=== PATIENT | male | born 1980 | race Caucasian/White ===

== ENCOUNTER 2022-12-05 16:55 | Emergency (ER) | payer OTHER, SELFPAY ==
[2022-12-05 16:57] VITALS: BP 102/75; PULSE 101; RESP 16; TEMP 37.2; O2SAT 97; BMI 61.7
--- NOTE | 2022-12-05 16:59 | XR_ITS ---
The [address] [address] Patient Name: SALVADOR ANTOINE MRN: [id number] date: 1980 Sex: M Assigned Patient Location: ER Current Patient Location: ER Accession/Order Number: [id number] Exam Date: 12/05/2022 17:21 Report Date: 12/05/2022 17:49 At the request of: HAIR METZ Procedure: XR shoulder LT min 2V EXAM: XR shoulder LT min 2V HISTORY: Left shoulder pain COMPARISON: None. TECHNIQUE: 3 views FINDINGS: No osseous lesion, fracture, dislocation or subluxation. Joint spaces are unremarkable for patient's age. No visualized effusion. No visualized soft tissue edema. XR/XR shoulder LT min 2V IMPRESSION: No visualized abnormality Electronically authenticated by: LIZET ALVAREZ Date: 12/05/2022 17:49
--- NOTE | 2022-12-05 17:03 | XR_ITS ---
The [address] [address] Patient Name: SALVADOR ANTOINE MRN: [id number] date: 1980 Sex: M Assigned Patient Location: ER Current Patient Location: ER Accession/Order Number: [id number] Exam Date: 12/05/2022 17:21 Report Date: 12/05/2022 17:46 At the request of: HAIR METZ Procedure: XR cervical spine 2-3V EXAM: XR cervical spine 2-3V HISTORY: neck pain COMPARISON: None. TECHNIQUE: 4 views FINDINGS: IMPRESSION: Age-indeterminate straightening of the normal cervical lordosis. Vertebral body heights and alignments exhibit no fracture or listhesis. Intervertebral disc space narrowing, endplate, uncovertebral and facet changes. No visualized prevertebral soft tissue edema. The dens and lateral masses of C1 are symmetric. Electronically authenticated by: LIZET ALVAREZ Date: 12/05/2022 17:46
--- NOTE | 2022-12-05 17:49 | ED_ITS ---
Documented by User: NISHI Charles 12/05/22 17:56 HPI - Extremity Injury (Upper) General Chief Complaint: Extremity Injury, Upper Stated Complaint: POSSIBLE L SHOULDER INJURY Time Seen by Provider: 12/05/22 16:59 Source: patient Mode of arrival: Wheelchair Limitations: no limitations History of Present Illness HPI narrative: patient is a 42-year-old male who presents to the emergency department for the evaluation of pain in the left side of the neck and left superior shoulder for the last day. He denies any specific mechanism of injury or trauma but states his pain began after he was reaching behind himself to wipe his bottom in the bathroom. He denies any numbness or tingling of the left arm. No pain radiation to the left arm. He has a history of chronic back pain. He takes Tylenol typically for pain at home. Related Data Previous Rx's Medication Instructions Recorded ketorolac 10 mg tablet 10 mg PO TID PRN pain #10 tabs 12/05/22 methocarbamol 750 mg tablet 750 mg PO TID PRN pain #20 tabs 12/05/22 methylprednisolone 4 mg tablets in See Rx Instructions .Route 12/05/22 a dose pack (Medrol (Eric)) .COMPLEX #21 ea Allergies Allergy/AdvReac Type Severity Reaction Status Date / Time No Known Drug Allergies Allergy Verified 12/05/22 17:01 Review of Systems ROS Constitutional Denies: fever or chills Ears, nose, mouth, and throat Reports: neck pain; Denies: throat pain Cardiovascular Denies: chest pain Respiratory Denies: shortness of breath Gastrointestinal Denies: abdominal pain, nausea or vomiting Genitourinary Denies: painful urination Musculoskeletal Reports: back pain, neck pain and extremity pain Integumentary/Breast Denies: rash Neurological Denies: headache Exam Narrative Exam Narrative: Gen.: Awake, alert, in no distress Head: Normocephalic, atraumatic ENT: Moist mucous membranes Neck: no bony posterior tenderness of the cervical spine with diffuse tenderness of the left paraspinal muscles of the neck and left superior shoulder Respiratory: No respiratory distress, lungs clear bilaterally Cardio: Regular rate and rhythm Gastrointestinal: Abdomen is soft, nondistended and nontender to palpation Extremities: Moves extremities equally, 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, normal biceps tendon strength of flexion and extension of the left arm Psych: Normal mood and affect Neuro: No focal neuro deficit Skin: Warm, dry, intact Constitutional Vital Signs, click to edit/add: Last Vital Signs Temp 98.9 F 12/05/22 16:57 Pulse 101 H 12/05/22 16:57 Resp 16 12/05/22 16:57 BP 102/75 12/05/22 16:57 Pulse Ox 97 12/05/22 16:57 O2 Del Method Room Air 12/05/22 16:57 Course Vital Signs Vital signs: Vital Signs Temperature 98.9 F 12/05/22 16:57 Pulse Rate 101 H 12/05/22 16:57 Respiratory Rate 16 12/05/22 16:57 Blood Pressure 102/75 12/05/22 16:57 Pulse Oximetry 97 12/05/22 16:57 Oxygen Delivery Method Room Air 12/05/22 16:57 Temperature 98.9 F 12/05/22 16:57 Pulse Rate 101 H 12/05/22 16:57 Respiratory Rate 16 12/05/22 16:57 Blood Pressure 102/75 12/05/22 16:57 Pulse Oximetry 97 12/05/22 16:57 Oxygen Delivery Method Room Air 12/05/22 16:57 MDM - Extremity Injury (Upper) MDM Narrative Medical decision making narrative: x-rays of the left shoulder and cervical spine reviewed by the radiologist with no evidence of acute fracture, dislocation or abnormalities. Patient treated for symptoms with Norflex, Toradol, Percocet in the Emergency Room and will be discharged home with Medrol Dosepak, Robaxin, NSAIDs. Rest, ice, gentle stretching. Follow-up with PCP and return to the Emergency Room if symptoms change or worsen. Medical Records Attestation: I reviewed the patient's medical records. Discharge Plan Discharge Chief Complaint: Extremity Injury, Upper Clinical Impression: Left shoulder strain, Cervical strain Patient Disposition: Home, Self-Care Time of Disposition Decision: 17:51 Condition: Good Prescriptions / Home Meds: New ketorolac 10 mg tablet 10 mg PO TID PRN (Reason: pain) Qty: 10 0RF methocarbamol 750 mg tablet 750 mg PO TID PRN (Reason: pain) Qty: 20 0RF methylprednisolone [Medrol (Eric)] 4 mg tablets,dose pack See Rx Instructions .ROUTE .COMPLEX Qty: 21 0RF Rx Instructions: Taper as directed Instructions: Cervical Strain (ED), Muscle Strain (ED), Shoulder Pain (ED) Stand Alone Forms: Portal Instructions Referrals: Physician,Non-Staff, [Primary Care Provider] - 1 week Discharge Date/Time: 12/05/22 18:24 Documented by User: Xochitl Gonzalez MD 12/07/22 08:40 HPI - Extremity Injury (Upper) General Chief Complaint: Extremity Injury, Upper Stated Complaint: POSSIBLE L SHOULDER INJURY Time Seen by Provider: 12/05/22 16:59 Related Data Previous Rx's Medication Instructions Recorded ketorolac 10 mg tablet 10 mg PO TID PRN pain #10 tabs 12/05/22 methocarbamol 750 mg tablet 750 mg PO TID PRN pain #20 tabs 12/05/22 methylprednisolone 4 mg tablets in See Rx Instructions .Route 12/05/22 a dose pack (Medrol (Eric)) .COMPLEX #21 ea Allergies Allergy/AdvReac Type Severity Reaction Status Date / Time No Known Drug Allergies Allergy Verified 12/05/22 17:01 Exam Constitutional Vital Signs, click to edit/add: Last Vital Signs Temp 98.9 F 12/05/22 16:57 Pulse 101 H 12/05/22 16:57 Resp 16 12/05/22 16:57 BP 102/75 12/05/22 16:57 Pulse Ox 97 12/05/22 16:57 O2 Del Method Room Air 12/05/22 16:57 Course Vital Signs Vital signs: Vital Signs Temperature 98.9 F 12/05/22 16:57 Pulse Rate 101 H 12/05/22 16:57 Respiratory Rate 16 12/05/22 16:57 Blood Pressure 102/75 12/05/22 16:57 Pulse Oximetry 97 12/05/22 16:57 Oxygen Delivery Method Room Air 12/05/22 16:57 Temperature 98.9 F 12/05/22 16:57 Pulse Rate 101 H 12/05/22 16:57 Respiratory Rate 16 12/05/22 16:57 Blood Pressure 102/75 12/05/22 16:57 Pulse Oximetry 97 12/05/22 16:57 Oxygen Delivery Method Room Air 12/05/22 16:57 MDM - Extremity Injury (Upper) MDM Narrative Medical decision making narrative: x-rays of the left shoulder and cervical spine reviewed by the radiologist with no evidence of acute fracture, dislocation or abnormalities. Patient treated for symptoms with Norflex, Toradol, Percocet in the Emergency Room and will be discharged home with Medrol Dosepak, Robaxin, NSAIDs. Rest, ice, gentle stretching. Follow-up with PCP and return to the Emergency Room if symptoms change or worsen. Attending physician attestation I have seen and evaluated this patient. I have reviewed the mid-level provider?s documentation medical decision making and treatment plan. I agree with the mid- level provider?s assessment, and plan. Discharge Plan Discharge Chief Complaint: Extremity Injury, Upper Clinical Impression: Left shoulder strain, Cervical strain Patient Disposition: Home, Self-Care Time of Disposition Decision: 17:51 Condition: Good Prescriptions / Home Meds: New ketorolac 10 mg tablet 10 mg PO TID PRN (Reason: pain) Qty: 10 0RF methocarbamol 750 mg tablet 750 mg PO TID PRN (Reason: pain) Qty: 20 0RF methylprednisolone [Medrol (Eric)] 4 mg tablets,dose pack See Rx Instructions .ROUTE .COMPLEX Qty: 21 0RF Rx Instructions: Taper as directed Instructions: Cervical Strain (ED), Muscle Strain (ED), Shoulder Pain (ED) Stand Alone Forms: Portal Instructions Referrals: Physician,Non-Staff, MD [Primary Care Provider] - 1 week Discharge Date/Time: 12/05/22 18:24
[2022-12-05] MEDS: KETOROLAC TROMETHAMINE 60 MG/2 ML VIAL IM (18:08)
[2022-12-05] MEDS: ORPHENADRINE 60 MG/ 2 ML VIAL IM (18:09)
== END 2022-12-05 18:24 | disposition home or self-care (01) ==
PROVIDERS: Emergency Provider Emergency Medicine
DX: S16.1XXA Strain of muscle, fascia and tendon at neck level, initial encounter (principal); S46.912A Strain of unspecified muscle, fascia and tendon at shoulder and upper arm level, left arm, initial encounter; X50.9XXA Other and unspecified overexertion or strenuous movements or postures, initial encounter
CPT/HCPCS: 72040; 73030; 96372; 99284

== ENCOUNTER 2022-12-26 14:48 | Outpatient (OUT) | payer OTHER, SELFPAY ==
--- NOTE | 2022-12-26 14:52 | XR_ITS ---
The [address] [address] Patient Name: SALVADOR ANTOINE MRN: [id number] date: 1980 Sex: M Assigned Patient Location: RAD Current Patient Location: [facility] Accession/Order Number: [id number] Exam Date: 12/26/2022 15:00 Report Date: 12/26/2022 17:07 At the request of: NON-STAFF PHYSICIAN Procedure: XR lumbar spine min 4V EXAMINATION: XR lumbar spine min 4V HISTORY: Low Back Pain M54.50 COMPARISON: No relevant comparison available. FINDINGS: BONES: Moderate widespread spondylosis. No visible acute bony abnormality. DISC SPACES: Normal. No significant disc height narrowing, subluxation, or endplate abnormality. PARASPINOUS: Negative. No paraspinous abnormality is seen. OTHER: Negative. XR/XR lumbar spine min 4V IMPRESSION: No acute disease. Electronically authenticated by: LIZET KINNEY Date: 12/26/2022 17:07
== END 2022-12-26 14:49 | disposition home or self-care (01) ==
LOC: RAD 14:48
DX: M54.50 Low back pain, unspecified (principal)
CPT/HCPCS: 72110

== ENCOUNTER 2023-02-04 11:59 | Outpatient (OUT) | payer OTHER, SELFPAY ==
--- NOTE | 2023-02-04 13:18 | P.CN_ITS ---
Consult Note: HPI Data of Consult Patient: new to practice Consult date: 02/04/23 Requesting Physician: Frankie Bright MD Primary Care Provider: Non-Staff Physician, Consult Narrative Reason for consult: Low back, neck pain Narrative: 42yom who presents for evaluation. Notes worsening low back and neck pain, has been ongoing for years. Denies trauma. Engages in provider directed home exercise program, which has not helped for >6 weeks. Has tried various medications, including gabapentin, robaxin, tylenol, without significant relief. Lumbar XR shows mild degenerative change. Denies adverse medication side effects. cc:: CC: Frankie Bright MD Review of Systems ROS Status of ROS 10 or more systems reviewed and unremarkable except as noted in history and below Meds Home Medications and Allergies Home Medications Medication Instructions Recorded Confirmed Type ketorolac 10 mg tablet 10 mg PO TID PRN pain #10 tabs 12/05/22 Rx methocarbamol 750 mg tablet 750 mg PO TID PRN pain #20 tabs 12/05/22 Rx methylprednisolone 4 mg tablets in See Rx Instructions .Route 12/05/22 Rx a dose pack (Medrol (Eric)) .COMPLEX #21 ea Allergies Allergy/AdvReac Type Severity Reaction Status Date / Time No Known Drug Allergies Allergy Verified 12/05/22 17:01 Exam Narrative Exam Narrative: Psych-alert and oriented x 3. Attentive and appropriate, constitutionally normal, displays normal mood and affect per situation.? There are no obvious deficits in memory, reasoning, or intellect.? Skin-no obvious rashes, bruising, erythema noted to the patient's area of pain. Extremities- extremities are warm with minimal edema and palpable pulses. Lumbar-no significant tenderness to palpation noted in the lumbar spine and paraspinal musculature.? Pain is elicited with extension, and lateral rotation of the lumbar spine. Range of motion is slightly diminished with these motions due to pain. Facet loading maneuvers are positive bilaterally and do appear to be concordant with the patient's normal complaints of pain.? Coordination remains intact.? Gait remains non-antalgic. Assessment and Plan Assessment and Plan (1) Lumbar spondylosis: (2) Cervicalgia: Plan 42yom who presents for evaluation. Failed conservative measures, as noted. Imaging reviewed, as noted. Given symptoms and imaging, coupled with failure of >6 weeks of conservative management, prudent to attempt diagnostic bilateral L4- 5, L5-S1 medial branch block under fluoroscopic guidance with intention of proceeding to radiofrequency ablation. He is in agreement. Medication reviewed. Will trial lyrica 50mg tid, given failure of gabapentin. He is in agreement. Medhat crow up after procedure.
== END 2023-02-04 12:00 | disposition home or self-care (01) ==
PROVIDERS: Visit Provider Anesthesiology
DX: M47.816 Spondylosis without myelopathy or radiculopathy, lumbar region (principal); M54.2 Cervicalgia
CPT/HCPCS: G0463

== ENCOUNTER 2023-02-11 06:50 | Day surgery (SDC) | payer OTHER, SELFPAY ==
[2023-02-11 07:24] VITALS: BP 179/110; PULSE 94; RESP 20; TEMP 36.1; O2SAT 97
[2023-02-11 08:02] VITALS: BP 177/102; PULSE 84; RESP 20; O2SAT 100
--- NOTE | 2023-02-11 08:05 | W.PM.PROCNOT ---
Date of procedure: 02/11/23 Pre-op diagnosis: Lumbar spondylosis Post-op diagnosis: same as pre-op Procedure: Procedure: Bilateral L4-5, L5-S1 medial branch block Medications: Bupivacaine 0.5% 4cc, kenalog 40mg The patient was seen and examined in the preoperative holding area.? An informed consent was obtained and placed on the chart.? The patient was brought to the medical procedure unit and placed in the prone position.? A timeout was completed verifying correct patient, procedure site, positioning, plan, and special equipment.? Using aseptic technique, the needle was placed at left L4. Under direct fluoroscopic visualization a Quincke-tipped spinal needle was advanced to the junction of the superior articulating process with the transverse process at the designated medial branch segment.? Preceded by negative aspiration, the above-mentioned injectate was placed in 1 mL aliquots.? The procedure was repeated at left L5, S1.? The needle was removed and insertion site was covered. The same procedure, at the same levels, was completed on the right side. The patient was taken to the postprocedural recovery area and monitored for an appropriate length of time before found suitable for discharge in the company of a responsible adult. Anesthesia: Local Surgeon: Frankie Bright Pathology: none sent Condition: stable Disposition: no change
[2023-02-11] MEDS: TRIAMCINOLONE ACETONIDE 40 MG/ML VIAL INJ (08:06)
[2023-02-11] MEDS: LIDOCAINE HCL 2% PF 100 MG/5 ML VIAL INJ (08:06)
[2023-02-11] MEDS: BUPIVACAINE HCL 0.5% PF 50 MG/10 ML VIAL 8 ML INJ (08:06)
[2023-02-11 09:45] VITALS: BP 179/103; PULSE 84; RESP 20; O2SAT 94
== END 2023-02-11 08:16 | disposition home or self-care (01) ==
PROVIDERS: Visit Provider Anesthesiology
DX: M47.816 Spondylosis without myelopathy or radiculopathy, lumbar region (principal)
CPT/HCPCS: 64493; 64494

== ENCOUNTER 2023-02-20 13:55 | Outpatient (OUT) | payer OTHER, SELFPAY ==
--- NOTE | 2023-02-20 14:25 | PM.CN ---
Consult Note: HPI Data of Consult Requesting Physician: Kim Willis NP Primary Care Provider: Non-Staff Physician, MD Consult Narrative Reason for consult: f/u Narrative: Jacques lópez pleasant 42 year old male presents for evaluation and management of low back pain. Today rating pain 9/10. Patient reports improvement with increase in lyrica dose. 50% relief from bilateral L4-5 L5-S1 MBB #1 with no functional improvement. cc:: CC: Kim Willis NP Review of Systems ROS Status of ROS 10 or more systems reviewed and unremarkable except as noted in history and below Cardiovascular Reports: chest pain Respiratory Reports: shortness of breath Neurological Reports: headache Meds Home Medications and Allergies Home Medications Medication Instructions Recorded Confirmed Type amlodipine 10 mg tablet 10 mg PO .hs 02/04/23 02/04/23 History cetirizine 10 mg tablet (24Hour 10 mg PO DAILY PRN allergy symptoms 02/04/23 02/04/23 History Allergy) duloxetine 60 mg capsule,delayed 60 mg PO .HS 02/04/23 02/04/23 History release (Cymbalta) fluticasone 500 mcg-salmeterol 50 1 inh inhalation BID 02/04/23 02/04/23 History mcg/dose blistr powdr for inhalation (Advair Diskus) losartan 100 mg tablet 100 mg PO DAILY 02/04/23 02/04/23 History pantoprazole 40 mg tablet,delayed 40 mg PO DAILY PRN heartburn 02/04/23 02/04/23 History release pregabalin 50 mg capsule (Lyrica) 50 mg PO TID 02/04/23 02/04/23 History pregabalin 50 mg capsule (Lyrica) 50 mg PO TID #90 caps 02/04/23 Rx topiramate 50 mg capsule,extended 50 mg PO DAILY 02/04/23 02/04/23 History release 24 hr Allergies Allergy/AdvReac Type Severity Reaction Status Date / Time No Known Drug Allergies Allergy Verified 12/05/22 17:01 Exam Narrative Exam Narrative: Psych-alert and oriented x 3. Attentive and appropriate, constitutionally normal, displays normal mood and affect per situation.? There are no obvious deficits in memory, reasoning, or intellect.? Skin-no obvious rashes, bruising, erythema noted to the patient's area of pain. Extremities- extremities are warm with minimal edema and palpable pulses. Lumbar-no significant tenderness to palpation noted in the lumbar spine and paraspinal musculature.? Pain is elicited with extension, and lateral rotation of the lumbar spine. Range of motion is slightly diminished with these motions due to pain. Facet loading maneuvers are positive bilaterally and do appear to be concordant with the patient's normal complaints of pain.? Coordination remains intact.? Gait remains non-antalgic. Assessment and Plan Assessment and Plan (1) Lumbar spondylosis: (2) Obesity: (3) Hypertension: Plan patient refusing to go to ER, BP 228/103 RR 28 HR 85. Reporting headache and chest pain related to GERD . Appears SOB with ambulation and at rest. Reports he did not take his BP medications today pt has appointment with PCP soon will discuss BP with them, we will call their office and update on his condition today but unfortunately patient is refusing care aquatherapy ordered f/u 2 months, cannot adjust medications at this time due to ongoing concerns with physical health and condition
== END 2023-02-20 13:56 | disposition home or self-care (01) ==
LOC: PM 13:57
PROVIDERS: Visit Provider Nurse Practitioner
DX: M47.816 Spondylosis without myelopathy or radiculopathy, lumbar region (principal); E66.9 Obesity, unspecified; I10 Essential (primary) hypertension
CPT/HCPCS: G0463

== ENCOUNTER 2023-04-24 13:24 | Outpatient (OUT) | payer OTHER, SELFPAY ==
--- OUTSIDE RECORDS SUMMARY | 2023-04-24 13:27 | XMS_ITS | CCD ---
Author Name Unknown Address [id number] [place] [address] Organization [facility] Care Team Providers Care Cell Tuber Hand Name Role Phone FEDERICA EARLY Attending Unavailable MISC, DR DUARTE Primary Care Unavailable FEDERICA EARLY Admitting Unavailable REYES, DR GUILLERMO Huang Consulting Unavailable FEDERICA EARLY Consulting Unavailable JATIN, DR CRYSTAL Ramirez Admitting Unavailable [facility] Primary Care Unavaila ble JATIN, DR CRYSTAL Ramirez Attending Unavailable JATIN, DR CRYSTAL Ramirez Consulting Unavailable MISC, DR DUARTE Attending Unavailable [facility] Primary Care Unavaila ble MISC, DR DUARTE Admitting Unavailable [facility] Primary Care Provider GAGE Louie Attending Provider Mary Lou Louie Attending Unavailab le Mary Lou Louie Admitting Unavailab [facility] Primary Care Unavaila ble Kaila MASON, Frankie Casas Attending Unavailable Frankie Bright MD Attending Unavailable Medications Current Medications Medication Drug Class(es) Dates Sig (Normalized) Sig (Original) [id number] 200 actuat albuterol 0.09 mg/actuat metered dose inhaler (1 source) beta2-Adrenergic Agonist Start: 04-01-2018 Albuterol Sulfate (Ventolin Hfa) 90 mcg/actuation Hfa Aerosol Inhaler Active 1 PUFF INHALATION As Directed April 01, 2018 12:00am amLODIPine 10 mg oral tablet (1 source) Dihydropyridine Calcium Channel Lis Start: 04-01-2018 take 1 tablet by mouth once daily Amlodipine Active 1 TAB PO Daily April 01, 2018 12:00am 1 ml enoxaparin sodium 150 mg/ml prefilled syringe (1 source) Low Molecular Weight Heparin Start: 04-09-2018 inject 1 dose by subcutaneous injection twice daily Enoxaparin Active 1 DOSE SUBCUT Twice daily April 09, 2018 12:00am 30 actuat fluticasone furoate 0.1 mg/actuat dry powder inhaler (1 source) Corticosteroid Start: 04-01-2018 Fluticasone Furoate (Arnuity Ellipta) 100 mcg/actuation blister with device Active 1 PUFF INHALATION As Directed April 01, 2018 12:00am hydrOXYzine hydrochloride 25 mg oral tablet (1 source) Antihistamine Start: 04-01-2018 take 25 mg by mouth four times daily Hydroxyzine Hcl Active 25 MG PO Four times daily April 01, 2018 12:00am 24 hr lamoTRIgine 25 mg extended release oral tablet (1 source) Mood Stabilizer, Anti-epileptic Agent Start: 04-01-2018 take 25 mg by mouth once daily Lamotrigine Active 25 MG PO Daily April 01, 2018 12:00am LORazepam 1 mg oral tablet (1 source) Benzodiazepine Start: 08-13-2018 take 1 tablet by mouth once daily Lorazepam Active 1 TAB PO Daily August 12, 2018 11:00pm raNITIdine 75 mg oral tablet (2 sources) Histamine-2 Receptor Antagonist Start: 04-01-2018 take 1 tablet by mouth twice daily Ranitidine Hcl (Zantac 75) 75 mg Tablet Active 1 TAB PO Twice daily April 01, 2018 12:00am Start: 04-01-2018 End: 04-09-2018 take 150 mg by mouth once daily Ranitidine Hcl Discontinued 150 MG PO Daily April 01, 2018 12:00am April 09, 2018 7:58am warfarin sodium 4 mg oral tablet (1 source) Vitamin K Antagonist Start: 04-01-2018 Warfarin Active 1 TAB PO As Directed April 01, 2018 12:00am Completed/Discontinued Medications Medication Drug Class(es) Dates Sig (Normalized) Sig (Original) amitriptyline hydrochloride 25 mg oral tablet (1 source) Tricyclic Antidepressant Start: 04-01-2018 End: 04-09-2018 take 25 mg by mouth once daily Amitriptyline Discontinued 25 MG PO Daily April 01, 2018 12:00am April 09, 2018 7:59am tiZANidine 2 mg oral capsule (1 source) Central alpha-2 Adrenergic Agonist Start: 04-01-2018 End: 04-09-2018 take 1 capsule by mouth three times daily Tizanidine (Zanaflex) 2 mg Capsule Discontinued 2 MG PO Three times daily April 01, 2018 12:00am April 09, 2018 8:00am Problems Active Problems Problem Classification Problem Date Documented Da te Episodic/Chronic Essential hypertension (1 source) Essential (primary) hypertension; Translations: [Essential (primary) hypertension] Onset: 05-02-2022 Chronic Other connective tissue disease (1 source) Pain in left leg; Translations: [PAIN IN LEFT LEG] Onset: 01-12-2022 Episodic Other connective tissue disease (1 source) Pain in right leg; Translations: [PAIN IN RIGHT LEG] Onset: 01-12-2022 Episodic Other nutritional; endocrine; and metabolic disorders (1 source) Obesity, unspecified; Translations: [OBESITY UNSPECIFIED] Onset: 01-12-2022 Chronic Unclassified (3 sources) LOW BACK PAIN, UNSPECIFIED; Translations: [LOW BACK PAIN, UNSPECIFIED] Onset: 01-12-2022 Past or Other Problems Problem Classification Problem Date Documented Da te Episodic/Chronic Genitourinary symptoms and ill-defined conditions (4 sources) Hematuria, unspecified; Translations: [HEMATURIA UNSPECIFIED] Onset: 02-03-2021 Episodic Unclassified (1 source) LOW BACK PAIN, UNSPECIFIED; Translations: [LOW BACK PAIN, UNSPECIFIED] Onset: 01-09-2022 Results Test Name Value Interpretation Reference Range Facility Albumin [Mass/volume] in Ser um or PlasmaOrdered By: Mary Lou Louie on 05-02-2022 Albumin [Mass/Vol] 3.4 g/dL 3.2-5.5 [facility] Basophils Auto (Bld) [#/Vol] Ordered By: Mary Lou Louie on 05-02-2022 Basophils (Bld) [#/Vol] 0.0 10*3/uL 0.0-0.2 [facility] Basophils/100 WBC Auto (Bld) Ordered By: Mary Lou Louie on 05-02-2022 Basophils/100 WBC (Bld) 0.4 % . [facility] Cholesterol [Mass/volume] in Serum or PlasmaOrdered By: Mary Lou Louie on 05-02-2022 Cholesterol [Mass/Vol] 140 mg/dL 140-200 [facility] Comment on above: Chol less than 200 m g/dl low riskChol 201-239 mg/dl borderline riskChol 240 mg/dl and greater high risk Cholesterol in LDL Calc [Mas s/Vol]Ordered By: Mary Lou Louie on 05-02-2022 Cholesterol in LDL [Mass/Vol] 94 mg/dL 0-100 [facility] Comment on above: LDL ATP III CLASSIFI CATIONLDL less than 100 mg/dL OptimalLDL 100-129 mg/dL Near or above optimalLDL 130-159 mg/dL Borderline highLDL 160-189 mg/dL HighLDL greater than 189 mg/dL Very high Cholesterol in VLDL Calc [Ma ss/Vol]Ordered By: Mary Lou Louie on 05-02-2022 Cholesterol in VLDL [Mass/Vol] 10 mg/dL [facility] Complete Blood Count Auto Di ffon 05-02-2022 Basophils (Bld) [#/Vol] 0.0 10*3/uL Normal 0.0-0.2 [facility] Comment on above: Order Comment: Reaso n for Exam Essential (primary) hypertension Result Comment: PERF ORMED BY: [place] [address] PATHOLOGIST ADULT LIVE IN CAREGIVER CECE DUNHAM M.D. Performed By: #### C BC, LIPID, TSH3 wRFLX, CMP #### [facility] [address] [place] [address] Basophils/100 WBC (Bld) 0.4 % Normal . [facility] Comment on above: Order Comment: Reaso n for Exam Essential (primary) hypertension Performed By: #### C BC, LIPID, TSH3 wRFLX, CMP #### [facility] [address] Eosinophils (Bld) [#/Vol] 0.1 10*3/uL Normal 0.0-0.45 [facility] Comment on above: Order Comment: Reaso n for Exam Essential (primary) hypertension Performed By: #### C BC, LIPID, TSH3 wRFLX, CMP #### [facility] [address] [place] [address] [place] Eosinophils/100 WBC (Bld) 1.0 % Normal . [facility] Comment on above: Order Comment: Reaso n for Exam Essential (primary) hypertension Performed By: #### C BC, LIPID, TSH3 wRFLX, CMP #### [address] Erythrocyte distribution width (RBC) [Ratio] 15.6 % High 12.0-14.8 [facility] Comment on above: Order Comment: Reaso n for Exam Essential (primary) hypertension Performed By: #### C BC, LIPID, TSH3 wRFLX, CMP #### [address] Hematocrit (Bld) [Volume fraction] 48.4 % Normal 38.8-50.0 [facility] Comment on above: Order Comment: Reaso n for Exam Essential (primary) hypertension Performed By: #### C BC, LIPID, TSH3 wRFLX, CMP #### [address] Hemoglobin (Bld) [Mass/Vol] 15.9 g/dL Normal 13.0-17.0 [facility] Comment on above: Order Comment: Reaso n for Exam Essential (primary) hypertension Performed By: #### C BC, LIPID, TSH3 wRFLX, CMP #### [place] [address] [place] Lymphocytes (Bld) [#/Vol] 2.1 10*3/uL Normal 1.00-4.8 [facility] Comment on above: Order Comment: Reaso n for Exam Essential (primary) hypertension Performed By: #### C BC, LIPID, TSH3 wRFLX, CMP #### [facility] [address] [place] [address] [place] Lymphocytes/100 WBC (Bld) 19.6 % Normal . [facility] Comment on above: Order Comment: Reaso n for Exam Essential (primary) hypertension Performed By: #### C BC, LIPID, TSH3 wRFLX, CMP #### [facility] [address] MCH (RBC) [Entitic mass] 29.2 pg Normal 27.5-35.2 [facility] Comment on above: Order Comment: Reaso n for Exam Essential (primary) hypertension Performed By: #### C BC, LIPID, TSH3 wRFLX, CMP #### [address] MCV (RBC) [Entitic vol] 88.6 fL Normal 83.5-101 [facility] Comment on above: Order Comment: Reaso n for Exam Essential (primary) hypertension Performed By: #### C BC, LIPID, TSH3 wRFLX, CMP #### [address] Mean Corpuscular HGB Conc 32.9 g/dL Normal 32.5-35.6 [facility] Comment on above: Order Comment: Reaso n for Exam Essential (primary) hypertension Performed By: #### C BC, LIPID, TSH3 wRFLX, CMP #### [address] Monocytes (Bld) [#/Vol] 0.8 10*3/uL Normal 0.0-0.8 [facility] Comment on above: Order Comment: Reaso n for Exam Essential (primary) hypertension Performed By: #### C BC, LIPID, TSH3 wRFLX, CMP #### [facility] [address] [place] [address] [place] Monocytes/100 WBC (Bld) 7.1 % Normal . [facility] Comment on above: Order Comment: Reaso n for Exam Essential (primary) hypertension Performed By: #### C BC, LIPID, TSH3 wRFLX, CMP #### [facility] [address] [place] [address] [place] Neutrophils (Bld) [#/Vol] 7.7 10*3/uL Normal 1.8-7.7 [facility] Comment on above: Order Comment: Reaso n for Exam Essential (primary) hypertension Performed By: #### C BC, LIPID, TSH3 wRFLX, CMP #### [facility] [address] [place] [id number] [place] Neutrophils/100 WBC (Bld) 71.9 % Normal . [facility] Comment on above: Order Comment: Reaso n for Exam Essential (primary) hypertension Performed By: #### C BC, LIPID, TSH3 wRFLX, CMP #### [facility] [address] [place] [address] [place] NRBC% 0.1 /100{WBC} Normal 0-0.5 [facility] Comment on above: Order Comment: Reaso n for Exam Essential (primary) hypertension Performed By: #### C BC, LIPID, TSH3 wRFLX, CMP #### [facility] [address] Platelet mean volume (Bld) [Entitic vol] 9.3 fL Normal 6.6-10.1 [facility] Comment on above: Order Comment: Reaso n for Exam Essential (primary) hypertension Performed By: #### C BC, LIPID, TSH3 wRFLX, CMP #### [facility] [address] [place] [address] [place] Platelets (Bld) [#/Vol] 284 10*3/uL Normal 150-450 [facility] Comment on above: Order Comment: Reaso n for Exam Essential (primary) hypertension Performed By: #### C BC, LIPID, TSH3 wRFLX, CMP #### [facility] [address] [place] [address] [place] RBC (Bld) [#/Vol] 5.46 10*6/uL Normal 3.90-5.60 [facility] Comment on above: Order Comment: Reaso n for Exam Essential (primary) hypertension Performed By: #### C BC, LIPID, TSH3 wRFLX, CMP #### [facility] [address] [place] [id number] [place] WBC (Bld) [#/Vol] 10.7 10*3/uL High 4.1-10.5 [facility] Comment on above: Order Comment: Reaso n for Exam Essential (primary) hypertension Performed By: #### C BC, LIPID, TSH3 wRFLX, CMP #### [facility] [address] Comprehensive Metabolic Pane rosemarie 05-02-2022 Albumin [Mass/Vol] 3.4 g/dL Normal 3.2-5.5 [facility] Comment on above: Order Comment: Reaso n for Exam Essential (primary) hypertension Performed By: #### C BC, LIPID, TSH3 wRFLX, CMP #### [facility] [address] Albumin/Globulin [Mass ratio] 0.9 {ratio} Normal [facility] Comment on above: Order Comment: Reaso n for Exam Essential (primary) hypertension Performed By: #### C BC, LIPID, TSH3 wRFLX, CMP #### [facility] [address] ALP [Catalytic activity/Vol] 112 U/L High 32-92 [facility] Comment on above: Order Comment: Reaso n for Exam Essential (primary) hypertension Performed By: #### C BC, LIPID, TSH3 wRFLX, CMP #### [facility] [address] [place] [id number] [place] ALT [Catalytic activity/Vol] 17 U/L Normal 10-60 [facility] Comment on above: Order Comment: Reaso n for Exam Essential (primary) hypertension Performed By: #### C BC, LIPID, TSH3 wRFLX, CMP #### [facility] [address] [place] [address] [place] Anion gap [Moles/Vol] 12.5 mmol/L Normal 6.0-15.0 [facility] Comment on above: Order Comment: Reaso n for Exam Essential (primary) hypertension Performed By: #### C BC, LIPID, TSH3 wRFLX, CMP #### [facility] [address] [place] [id number] [place] AST [Catalytic activity/Vol] 20 U/L Normal 10-42 [facility] Comment on above: Order Comment: Reaso n for Exam Essential (primary) hypertension Performed By: #### C BC, LIPID, TSH3 wRFLX, CMP #### [facility] [address] [id number] [place] Bilirubin [Mass/Vol] 0.3 mg/dL Normal 0.3-1.2 [facility] Comment on above: Order Comment: Reaso n for Exam Essential (primary) hypertension Performed By: #### C BC, LIPID, TSH3 wRFLX, CMP #### [facility] [address] [place] [id number] [place] Calcium [Mass/Vol] 9.1 mg/dL Normal 8.2-10.2 [facility] Comment on above: Order Comment: Reaso n for Exam Essential (primary) hypertension Performed By: #### C BC, LIPID, TSH3 wRFLX, CMP #### [facility] [address] Chloride [Moles/Vol] 106 mmol/L Normal 95-114 [facility] Comment on above: Order Comment: Reaso n for Exam Essential (primary) hypertension Performed By: #### C BC, LIPID, TSH3 wRFLX, CMP #### [facility] [address] [place] [id number] [place] CO2 [Moles/Vol] 22.6 mmol/L Normal 22.0-30.0 [facility] Comment on above: Order Comment: Reaso n for Exam Essential (primary) hypertension Performed By: #### C BC, LIPID, TSH3 wRFLX, CMP #### [facility] [address] [place] [id number] [place] Creatinine [Mass/Vol] 1.10 mg/dL Normal 0.64-1.[address] [facility] Comment on above: Order Comment: Reaso n for Exam Essential (primary) hypertension Performed By: #### C BC, LIPID, TSH3 wRFLX, CMP #### [facility] [address] [place] [id number] [place] Estimated GFR ( Dawna > 60 Normal [facility] Comment on above: Order Comment: Reaso n for Exam Essential (primary) hypertension Result Comment: GFR estimated reference range: According to KDOQI guidelines, <60 ml/min/1.73m2 is sufficient to diagnose a patient with chronic kidney disease. Performed By: #### C BC, LIPID, TSH3 wRFLX, CMP #### [facility] [address] [place] [address] [place] Estimated GFR (Non- Am > 60 Normal [facility] Comment on above: Order Comment: Reaso n for Exam Essential (primary) hypertension Performed By: #### C BC, LIPID, TSH3 wRFLX, CMP #### [facility] [address] [place] [address] [place] Globulin (S) [Mass/Vol] 3.7 g/dL Normal [facility] Comment on above: Order Comment: Reaso n for Exam Essential (primary) hypertension Performed By: #### C BC, LIPID, TSH3 wRFLX, CMP #### [facility] [address] Glucose [Mass/Vol] 96 mg/dL Normal 70-100 [facility] Comment on above: Order Comment: Reaso n for Exam Essential (primary) hypertension Result Comment: [place] Glucose Reference Range is dependent on time and content of last meal. Glucose of more than 200 mg/dL in a nonstressed, ambulatory subject supports the diagnosis of Diabetes Mellitus. ADA recommended reference range Performed By: #### C BC, LIPID, TSH3 wRFLX, CMP #### [facility] [address] Potassium [Moles/Vol] 4.1 mmol/L Normal 3.5-5.[address] [facility] Comment on above: Order Comment: Reaso n for Exam Essential (primary) hypertension Performed By: #### C BC, LIPID, TSH3 wRFLX, CMP #### [facility] [address] [place] [address] [place] Protein [Mass/Vol] 7.1 g/dL Normal 6.1-7.9 [facility] Comment on above: Order Comment: Reaso n for Exam Essential (primary) hypertension Performed By: #### C BC, LIPID, TSH3 wRFLX, CMP #### [facility] [address] [place] [id number] [facility] Sodium [Moles/Vol] 137 mmol/L Normal 136-146 [facility] Comment on above: Order Comment: Reaso n for Exam Essential (primary) hypertension Performed By: #### C BC, LIPID, TSH3 wRFLX, CMP #### [facility] [address] [place] [address] [place] Urea nitrogen [Mass/Vol] 16 mg/dL Normal 9-23 [facility] Comment on above: Order Comment: Reaso n for Exam Essential (primary) hypertension Performed By: #### C BC, LIPID, TSH3 wRFLX, CMP #### [facility] [address] Creatinine and Glomerular fi ltration rate.predicted panel (S/P/Bld)Ordered By: Mary Lou Louie on 05-02-2022 Creatinine [Mass/Vol] 1.10 mg/dL 0.64-1.[address] [facility] Eosinophils Auto (Bld) [#/Vo l]Ordered By: Mary Lou Louie on 05-02-2022 Eosinophils (Bld) [#/Vol] 0.1 10*3/uL 0.0-0.45 [facility] Eosinophils/100 WBC Auto (Bl d)Ordered By: Mary Lou Louie on 05-02-2022 Eosinophils/100 WBC (Bld) 1.0 % . [facility] Erythrocyte distribution wid th Auto (RBC) [Ratio]Ordered By: Mary Lou Louie on 05-02-2022 Erythrocyte distribution width (RBC) [Ratio] 15.6 % 12.0-14.8 [facility] Estimated glomerular filtrat ion rate (GFR) non- AmericanOrdered By: Mary Lou Louie on 05-02-2022 GFR/1.73 sq M.predicted among non-blacks MDRD (S/P/Bld) [Vol rate/Area] > 60 mL/Min [facility] Globulin Calc (S) [Mass/Vol] Ordered By: Mary Lou Louie on 05-02-2022 Globulin (S) [Mass/Vol] 3.7 g/dL [facility] Hematocrit Auto (Bld) [Volum e fraction]Ordered By: Mary Lou Louie on 01-18-2023 Hematocrit (Bld) [Volume fraction] 48.4 % 38.8-50.0 [facility] Hemoglobin [Mass/volume] in BloodOrdered By: Mary Lou Louie on 05-02-2022 Hemoglobin (Bld) [Mass/Vol] 15.9 g/dL 13.0-17.0 [facility] Leukocytes [#/volume] correc vinicoi for nucleated erythrocytes in Blood by Automated counOrdered By: Mary Lou Louie on 05-02-2022 WBC corrected for nucl RBC Auto (Bld) [#/Vol] 10.7 10*3/uL 4.1-10.5 [facility] Lipid Panelon 05-02-2022 Cholesterol [Mass/Vol] 140 mg/dL Normal 140-200 [facility] Comment on above: Order Comment: Reaso n for Exam Essential (primary) hypertension Result Comment: Chol less than 200 mg/dl low risk Chol 201-239 mg/dl borderline risk Chol 240 mg/dl and greater high risk Performed By: #### C BC, LIPID, TSH3 wRFLX, CMP #### [facility] [address] [place] [id number] [place] Cholesterol in HDL [Mass/Vol] 35 mg/dL Normal 29-71 [facility] Comment on above: Order Comment: Reaso n for Exam Essential (primary) hypertension Result Comment: HDL CHOL ATP-III CLASSIFICATION Cardiovascular Risk HDL > or equal to 60 mg/dL LOW HDL < 40 mg/dL HIGH Performed By: #### C BC, LIPID, TSH3 wRFLX, CMP #### [facility] [address] [place] [address] [place] Cholesterol.total/Choles terol in HDL [Mass ratio] 4.0 {ratio} Normal <5.0 [facility] Comment on above: Order Comment: Reaso n for Exam Essential (primary) hypertension Performed By: #### C BC, LIPID, TSH3 wRFLX, CMP #### [facility] [address] [place] [id number] [place] LDL Cholesterol,Calculated 94 mg/dL Normal 0-100 [facility] Comment on above: Order Comment: Reaso n for Exam Essential (primary) hypertension Result Comment: LDL ATP III CLASSIFICATION LDL less than 100 mg/dL Optimal LDL 100-129 mg/dL Near or above optimal LDL 130-159 mg/dL Borderline high LDL 160-189 mg/dL High LDL greater than 189 mg/dL Very high Performed By: #### C BC, LIPID, TSH3 wRFLX, CMP #### [facility] [address] Triglyceride w/Reflex 53 mg/dL Normal 35-[address] [facility] Comment on above: Order Comment: Reaso n for Exam Essential (primary) hypertension Result Comment: TRIG ATP III CLASSIFICATION TRIG less than 150 mg/dL Normal TRIG 150-199 mg/dL Borderline high TRIG 200-500 mg/dL High TRIG greater than 500 mg/dL Very high Standard traceable to the Center for Disease Conrtrol and Prevention (CDC) test method. Performed By: #### C BC, LIPID, TSH3 wRFLX, CMP #### [facility] [address] VLDL CHOLESTEROL 10 mg/dL Normal [facility] Comment on above: Order Comment: Reaso n for Exam Essential (primary) hypertension Performed By: #### C BC, LIPID, TSH3 wRFLX, CMP #### [facility] [address] Lymphocytes Auto (Bld) [#/Vo l]Ordered By: Mary Lou Louie on 05-02-2022 Lymphocytes (Bld) [#/Vol] 2.1 10*3/uL 1.00-4.8 [facility] Lymphocytes/100 WBC Auto (Bl d)Ordered By: Mary Lou Louie on 05-02-2022 Lymphocytes/100 WBC (Bld) 19.6 % . [facility] MCH Auto (RBC) [Entitic mass ]Ordered By: Mary Lou Louie on 05-02-2022 MCH (RBC) [Entitic mass] 29.2 pg 27.5-35.2 [facility] MCHC Auto (RBC) [Mass/Vol]Or dered By: Mary Lou Louie on 05-02-2022 MCHC (RBC) [Mass/Vol] 32.9 g/dL 32.5-35.[address] [facility] MCV Auto (RBC) [Entitic vol] Ordered By: Mary Lou Louie on 05-02-2022 MCV (RBC) [Entitic vol] 88.6 fL 83.5-101 F [facility] Monocytes Auto (Bld) [#/Vol] Ordered By: Mary Lou Louie on 05-02-2022 Monocytes (Bld) [#/Vol] 0.8 10*3/uL 0.0-0.8 [facility] Monocytes/100 WBC Auto (Bld) Ordered By: Mary Lou Louie on 05-02-2022 Monocytes/100 WBC (Bld) 7.1 % . [facility] Neutrophils Auto (Bld) [#/Vo l]Ordered By: Mary Lou Louie on 05-02-2022 Neutrophils (Bld) [#/Vol] 7.7 10*3/uL 1.8-7.7 [facility] Neutrophils/100 WBC Auto (Bl d)Ordered By: Mary Lou Louie on 05-02-2022 Neutrophils/100 WBC (Bld) 71.9 % . [facility] No Panel InformationOrdered By: Mary Lou Louie on 05-02-2022 Estimated GFR () > 60 mL/Min [facility] Comment on above: GFR estimated refere nce range: According to KDOQI guidelines, <60 ml/min/1.73m2 is sufficient to diagnose a patient with chronic kidney disease. Pharmacy Creatinine Clearance (Chem N/A [facility] Nucleated erythrocytes [Pres ence] in Blood by Automated countOrdered By: Mary Lou Louie on 05-02-2022 Nucleated RBC Auto Ql (Bld) 0.1 /100{WBC} 0-0.5 [facility] Platelet mean volume Auto (B ld) [Entitic vol]Ordered By: Mary Lou Louie on 05-02-2022 Platelet mean volume (Bld) [Entitic vol] 9.3 fL 6.6-10.1 [facility] Platelets Auto (Bld) [#/Vol] Ordered By: Mary Lou Louie on 05-02-2022 Platelets (Bld) [#/Vol] 284 10*3/uL 150-450 [facility] Protein [Mass/volume] in Ser um or PlasmaOrdered By: Mary Lou Louie on 05-02-2022 Protein [Mass/Vol] 7.1 g/dL 6.1-7.9 [facility] RBC Auto (Bld) [#/Vol]Ordere d By: Mary Lou Louie on 05-02-2022 RBC (Bld) [#/Vol] 5.46 10*6/uL 3.90-5.60 [facility] [facility] Serum or plasma alanine balderas otransferase measurement without P-5'-P (enzymatic activiOrdered By: Mary Lou Louie on 05-02-2022 ALT No additional P-5'-P [Catalytic activity/Vol] 17 U/L 10-60 [facility] Serum or plasma albumin/glob ulin mass ratioOrdered By: Mary Lou Louie on 05-02-2022 Albumin/Globulin [Mass ratio] 0.9 {ratio} [facility] Serum or plasma alkaline jemal sphatase measurement (enzymatic activity/volume)Ordered By: Mary Lou Louie on 05-02-2022 ALP [Catalytic activity/Vol] 112 U/L 32-92 [facility] Serum or plasma anion gap de terminationOrdered By: Mary Lou Louie on 05-02-2022 Anion gap [Moles/Vol] 12.5 mmol/L 6.0-15.0 [facility] Serum or plasma aspartate am inotransferase measurement (enzymatic activity/volume)Ordered By: Mary Lou Louie on 05-02-2022 AST [Catalytic activity/Vol] 20 U/L 10-42 [facility] Serum or plasma calcium juliana urement (mass/volume)Ordered By: Mary Lou Louie on 05-02-2022 Calcium [Mass/Vol] 9.1 mg/dL 8.2-10.2 [facility] Serum or plasma chloride blanca surement (moles/volume)Ordered By: Mary Lou Louie on 05-02-2022 Chloride [Moles/Vol] 106 mmol/L 95-114 [facility] Serum or plasma glucose juliana urement (mass/volume)Ordered By: Mary Lou Louie on 05-02-2022 Glucose [Mass/Vol] 96 mg/dL 70-100 [facility] Comment on above: ADA recommended refe rence rangeRandom Glucose Reference Range is dependent on time and content of last meal. Glucose of more than 200 mg/dL in a nonstressed, ambulatory subject supports the diagnosis of Diabetes Mellitus. Serum or plasma high density lipoprotein (HDL) cholesterol measurementOrdered By: Mary Lou Louie on 05-02-2022 Cholesterol in HDL [Mass/Vol] 35 mg/dL 29-71 [facility] Comment on above: HDL CHOL ATP-III CLA SSIFICATION Cardiovascular RiskHDL > or equal to 60 mg/dL LOWHDL < 40 mg/dL HIGH Serum or plasma potassium me asurement (moles/volume)Ordered By: Mary Lou Louie on 05-02-2022 Potassium [Moles/Vol] 4.1 mmol/L 3.5-5.[address] [facility] Serum or plasma sodium measu rement (moles/volume)Ordered By: Mary Lou Louie on 05-02-2022 Sodium [Moles/Vol] 137 mmol/L 136-146 [facility] Serum or plasma total biliru bin measurement (mass/volume)Ordered By: Mary Lou Louie on 05-02-2022 Bilirubin [Mass/Vol] 0.3 mg/dL 0.3-1.2 [facility] Serum or plasma total carbon dioxide measurement (moles/volume)Ordered By: Mary Lou Louie on 05-02-2022 CO2 [Moles/Vol] 22.6 mmol/L 22.0-30.0 [facility] Serum or plasma total choles terol/high density lipoprotein (HDL) cholesterol mass ratOrdered By: Mary Lou Louie on 05-02-2022 Cholesterol.total/Choles terol in HDL [Mass ratio] 4.0 {ratio} <5.0 [facility] Serum or plasma urea nitroge n measurement (mass/volume)Ordered By: Mary Lou Louie on 05-02-2022 Urea nitrogen [Mass/Vol] 16 mg/dL 9- [facility] TSH DL <= 0.005 mIU/L QnOrde red By: Mary Lou Louie on 05-02-2022 TSH Qn 2.26 m[IU]/L 0.45-5.33 [facility] Thyroid Stim Hormone w/Rflxo n 05-02-2022 Thyroid Stim Hormone w/Rflx 2.26 u[iU]/mL Normal 0.45-5.33 [facility] Comment on above: Order Comment: Reaso n for Exam Essential (primary) hypertension Result Comment: PERF ORMED BY: [place] [address] PATHOLOGIST ADULT LIVE IN CAREGIVER CECE DUNHAM M.D. Performed By: #### C BC, LIPID, TSH3 wRFLX, CMP #### [address] Triglyceride [Mass/volume] i n Serum or PlasmaOrdered By: Mary Lou Louie on 05-02-2022 Triglyceride [Mass/Vol] 53 mg/dL 35-149 [facility] Comment on above: TRIG ATP III CLASSIF ICATIONTRIG less than 150 mg/dL NormalTRIG 150-199 mg/dL Borderline highTRIG 200-500 mg/dL High TRIG greater than 500 mg/dL Very highStandard traceable to the Center for Disease Conrtrol and Prevention (CDC) test method. WBC Auto (Bld) [#/Vol]Ordere d By: Mary Lou Louie on 05-02-2022 WBC (Bld) [#/Vol] 10.7 10*3/uL 4.1-10.5 [facility] Provider Letteron 05-08-2021 Provider Letter May 08, 2021 May 08, 2021 JACQUES ANTOINE [address] [place] [address] JACQUES ANTOINE 1980 Dear _ , You missed your scheduled appointment on May 08, 2021 and the purpose of this letter is to inform you of our *No Show Policy*. Our appointment slots fill rapidly and when we have a no show appointment that time is lost. We could have used that time slot to care for a patient who needed to see one of our providers. Therefore, we ask that you call 24 hours in advance to cancel your appointment. After your second no show within a twelve (12) month period, you will be assessed a $30 charge. This policy is in place so that we can meet the needs of all of our patients and we do appreciate your understanding. Sincerely, [facility] [address] [address] Normal [facility] ED Note-Physicianon 02-18-20 ED Note-Physician [id number] .[id number]:127 Normal [facility] Lab Reportson 02-17-2021 Lab Reports [id number] .[id number]:127 Normal [facility] RAD - CT Reporton 02-17-2021 RAD - CT Report [id number] .[id number]:127 Normal [facility] CBC AUTO DIFFon 02-03-2021 BASO # 0.1 103/ul Normal 0.0-0.1 [facility] Comment on above: Performed By: #### C BC #### [facility] [address] [place] [address] Dr. Thuan Enriquez Basophils/100 WBC (Bld) 0.5 % Normal 0.2-2.0 [facility] Comment on above: Performed By: #### C BC #### [facility] [address] [place] [address] Dr. Thuan Enriquez EO # 0.2 103/ul Normal 0.0-0.7 [facility] Comment on above: Performed By: #### C BC #### [facility] [address] [place] [address] Dr. Thuan Enriquez Eosinophils/100 WBC (Bld) 1.2 % Normal 0.9-7.0 [facility] Comment on above: Performed By: #### C BC #### [facility] [address] [place] [address] Dr. Thuan Enriquez Erythrocyte distribution width (RBC) [Ratio] 15.5 % Critically high 11.0-15.0 [facility] Comment on above: Performed By: #### C BC #### [facility] [address] [place] [address] Dr. Thuan Enriquez Hematocrit (Bld) [Volume fraction] 46.1 % Normal 42.0-54.0 [facility] Comment on above: Performed By: #### C BC #### [facility] [address] [place] [address] Dr. Thuan Enriquez Hemoglobin (Bld) [Mass/Vol] 15.3 g/dL Normal 14.0-18.0 [facility] Comment on above: Performed By: #### C BC #### [facility] [address] [place] [address] Dr. Thuan Enriquez IG # 0.10 10e3/ul Critically high 0.00-0.03 [facility] Comment on above: Performed By: #### C BC #### [facility] [address] [place] [address] Dr. Thuan Enriquez IG % 0.5 % Normal 0.0-0.5 [facility] Comment on above: Performed By: #### C BC #### [facility] [address] [place] [address] Dr. Thuan Enriquez LYMPH # 2.4 103/ul Normal 1.2-3.8 [facility] Comment on above: Performed By: #### C BC #### [facility] [address] [place] [address] Dr. Thuan Enriquez Lymphocytes/100 WBC (Bld) 18.7 % Critically low 20.5-60.0 [facility] Comment on above: Performed By: #### C BC #### [facility] [address] [place] [address] Dr. Thuan Enriquez MANUAL DIFF REQ NO Normal [facility] Comment on above: Performed By: #### C BC #### [facility] [address] [place] [address] Dr. Thuan Enriquez MCH (RBC) [Entitic mass] 29.5 pg Normal 25.9-34.0 [facility] Comment on above: Performed By: #### C BC #### [facility] [address] [place] [address] Dr. Thuan Enriquez MCHC (RBC) [Mass/Vol] 33.2 g/dL Normal 29.9-35.2 [facility] Comment on above: Performed By: #### C BC #### [facility] [address] [place] [address] Dr. Thuan Enriquez MCV (RBC) [Entitic vol] 89.0 fL Normal 80.0-94.0 [facility] Comment on above: Performed By: #### C BC #### [facility] [address] [place] [address] Dr. Thuan Enriquez MONO # 1.1 103/ul Critically high 0.3-0.8 [facility] Comment on above: Performed By: #### C BC #### [facility] [address] [place] [address] Dr. Thuan Enriquez Monocytes/100 WBC (Bld) 8.6 % Normal 1.7-12.0 [facility] Comment on above: Performed By: #### C BC #### [facility] [address] [place] [address] Dr. Thuan Enriquez NEUT # 9.1 103/ul Critically high 1.4-6.5 [facility] Comment on above: Performed By: #### C BC #### [facility] [address] [place] [address] Dr. Thuan Enriquez Neutrophils/100 WBC (Bld) 70.5 % Normal 43.0-75.0 [facility] Comment on above: Performed By: #### C BC #### [facility] [address] [place] [address] Dr. Thuan Enriquez Platelet mean volume (Bld) [Entitic vol] 10.7 fL Normal 9.5-13.5 [facility] Comment on above: Performed By: #### C BC #### [facility] [address] [place], [place] [address] Dr. Thuan Enriquez PLT 332 103/ul Normal 150-450 [facility] Comment on above: Performed By: #### C BC #### [facility] [address] [address] [address] Thuan Enriquez RBC 5.18 106/ul Normal 4.70-6.10 [facility] Comment on above: Performed By: #### C BC #### [facility] [id number] Thuan Enriquez WBC 12.8 103/ul Critically high 4.0-11.0 [facility] Comment on above: Performed By: #### C BC #### [facility] [address] ABD/PELVIS WO CONon 02-03 CT ABD/PELVIS WO CON EXAMINATION: CT ABD/PELVIS WO CON HISTORY: Blood in urine , painful urination COMPARISON: CT abdomen pelvis without contrast 06/27/2019 TECHNIQUE: Axial, Coronal, and Sagittal images were created without IV contrast. Dose reduction techniques were achieved by using automated exposure control and/or adjustment of mA and/or kV according to patient size and/or use of iterative reconstruction technique. FINDINGS: LUNG BASES: No visible pulmonary or pleural disease. LIVER: Slight hypodensity of the liver suggestive of diffuse fatty infiltration. BILIARY: No dilatation or calcification. PANCREAS: No lesion, fluid collection, ductal dilatation, or atrophy. SPLEEN: No enlargement or focal lesion. ADRENALS: No mass or enlargement. KIDNEYS: No mass, obstruction, or calcification. BOWEL/MESENTERY: No visible mass, obstruction, or bowel wall thickening. AORTA/VASCULAR: No aneurysm or dissection. RETROPERITONEUM: No mass or adenopathy. LYMPH NODES: No adenopathy. URINARY BLADDER: No visible focal wall thickening, lesion, or calculus. PELVIC ORGANS: No visible mass. Pelvic organs appropriate for patient age. ABDOMINAL WALL: No mass or hernia. BONES: L3-L4, L4-L5 moderate degenerative disc disease. OTHER: Negative. IMPRESSION: 1. No urinary tract calculi, obstructive uropathy, or suspicious findings to account for patient's symptoms. Unremarkable urinary bladder. 2. Unremarkable bowel. 3. Degenerative changes of lower lumbar spine. Electronically authenticated by: GUILLERMO CHAMBERS Date: 2021-02-03 12:08 Normal [facility] ER URINE PROFILEon 1 Bilirubin Ql (U) Negative Normal NEGATIVE [facility] Comment on above: Performed By: #### Sury BLANC UMICRO #### [facility] [address] [address] [address] Thuan Enriquez Clarity (U) CLOUDY Abnormal CLEAR [facility] Comment on above: Performed By: #### Sury BLANC UMICRO #### [facility] [address] [place] [address] Dr. Thuan Enriquez Color (U) RED Abnormal YELLOW [facility] Comment on above: Performed By: #### AMPARO GIANGICRO #### [facility] [address] [place] [address] Dr. Thuan CHICAS A micrscopic examination will be performed if indicated. Normal [facility] Comment on above: Performed By: #### AMPARO GIANGICRO #### [facility] [address] [place] [address] Dr. Thuan Enriquez Glucose Ql (U) Negative Normal NEGATIVE [facility] Comment on above: Performed By: #### AMPARO GIANGICRO #### [facility] [address] [place] [address] Dr. Thuan Enriquez Hemoglobin Ql (U) LARGE Abnormal NEGATIVE [facility] Comment on above: Performed By: #### AMPARO GIANGICRO #### [facility] [address] [place] [address] Dr. Thuan Enriquez Ketones Ql (U) Negative Normal NEGATIVE [facility] Comment on above: Performed By: #### POOJA GIANGRO #### [facility] [address] [place] [address] Dr. Thuan Enriquez LEUKOCYTES Negative Normal NEGATIVE [facility] Comment on above: Performed By: #### Sury BLANC UMICRO #### [facility] [address] [place] [address] Dr. Thuan Enriquez Nitrite Ql (U) Negative Normal NEGATIVE [facility] Comment on above: Performed By: #### AMPARO GIANGICRO #### [facility] [address] [place] [address] Dr. Thuan Enriquez pH (U) 6.0 [pH] Normal 5-9 [facility] Comment on above: Performed By: #### Sury BLANC UMICRO #### [facility] [address] [place] [address] Dr. Thuan Enriquez Protein (U) [Mass/Vol] 30 mg/dL Abnormal NEGAT MONCHO/ TRACE [facility] Comment on above: Performed By: #### AMPARO GIANGICRO #### [facility] [address] [place] [address] Dr. Thuan Enriquez SPEC GRAVITY >=1.030 Abnormal 1.005-<=1.02 5 [facility] Comment on above: Performed By: #### POOJA GIANGRO #### [facility] [address] [place] [address] Dr. Thuan Enriquez UR MICRO IND INDICATED Normal [facility] Comment on above: Performed By: #### AMPARO GIANGICRO #### [facility] [address] [place] [address] Dr. Thuan Enriquez Urobilinogen Qn (U) 1.0 {Leo'U}/dL Normal 0.2 - 1. 0 [facility] Comment on above: Performed By: #### POOJA GIANGRO #### [facility] [address] [place] [address] Dr. Thuan Enriquez PROF CHEM 8 (BAS METB)on Anion gap [Moles/Vol] 14.6 mmol/L Normal [facility] Comment on above: Performed By: #### B MP #### [facility] [address] [place] [address] Dr. Thuan Enriquez Calcium [Mass/Vol] 8.7 mg/dL Normal 8.4-10.2 [facility] Comment on above: Performed By: #### B MP #### [facility] [address] [place] [address] Dr. Thuan Enriquez Chloride [Moles/Vol] 103 mmol/L Normal 98-107 [facility] Comment on above: Performed By: #### B MP #### [facility] [address] [address] [address] Thuan Enriquez CO2 [Moles/Vol] 22.8 mmol/L Normal 22.0-30.0 [facility] Comment on above: Performed By: #### B MP #### [facility] [address] [address] [address] Thuan Enriquez Creatinine [Mass/Vol] 1.13 mg/dL Normal 0.66-1.25 [facility] Comment on above: Performed By: #### B MP #### [facility] [address] [place] [address] Dr. Thuan Enriquez EGFR-AF AFGHAN >60 Normal >=60 [facility] Comment on above: Performed By: #### B MP #### [facility] [address] [address] [address] Thuan Enriquez EGFR-NON AF AFGHAN >60 Normal >=60 [facility] Comment on above: Performed By: #### B MP #### [facility] [address] [address] [address] Thuan Enriquez Glucose [Mass/Vol] 120 mg/dL Critically high 74-106 [facility] Comment on above: Performed By: #### B MP #### [facility] [address] [address] [address] Thuan Enriquez Potassium [Moles/Vol] 3.4 mmol/L Normal 3.4-5.0 [facility] Comment on above: Performed By: #### B MP #### [facility] [address] [address] [address] Thuan Enriquez Sodium [Moles/Vol] 137 mmol/L Normal 137-145 [facility] Comment on above: Performed By: #### B MP #### [facility] [address] [address] [address] Thuan Enriquez Urea nitrogen [Mass/Vol] 15.0 mg/dL Normal 9.0-20.0 [facility] Comment on above: Performed By: #### B MP #### [facility] [address] [place] [address] Dr. Thuan Enriquez Urea nitrogen/Creatinine [Mass ratio] 13.3 mg/mg Normal [facility] Comment on above: Performed By: #### B MP #### [facility] [address] [place] [address] Dr. Thuan Enriquez URINE MICROSCOPIC ONLYon BACTERIA TRACE Abnormal NONE SEEN [facility] Comment on above: Performed By: #### E SUNIR, UMICRO #### [facility] [address] [place] [address] Dr. Thuan Enriquez Bacteria identified Cx Nom (U) NOT INDICATED Normal [facility] Comment on above: Performed By: #### E SUNIR, UMICRO #### [facility] [address] [place] [address] Dr. Thuan Enriquez CAST NONE SEEN Normal NONE SEEN [facility] Comment on above: Performed By: #### E GUANACO, UMICRO #### [facility] [address] [place] [address] Dr. Thuan Enriquez Crystals LM Nom (Urine sed) NONE SEEN Normal NONE SEEN [facility] Comment on above: Performed By: #### Sury BLANC, UMICRO #### [facility] [address] [place] [address] Dr. Thuan Enriquez Epithelial cells LM Ql (Urine sed) FEW Abnormal NONE SEEN /RARE [facility] Comment on above: Performed By: #### E SUNIR, UMICRO #### [facility] [address] [place] [address] Dr. Thuan Enriquez MUCOUS MODERATE Abnormal NONE SEEN [facility] Comment on above: Performed By: #### E GUANACO, UMICRO #### [facility] [address] [place] [address] Dr. Thuan Enriquez RBC (U) [#/Vol] /uL Abnormal 0-2 [facility] Comment on above: Performed By: #### Sury BLANC, UMICRO #### [facility] [address] [address] [address] Thuan Enriquez WBC 2-5 Abnormal NONE SEEN [facility] Comment on above: Performed By: #### RESHMA GIANG #### [facility] [address] [id number] Thuan Enriquez Encounters Encounter Date Encounter Type Care Provider Facility Start: 02-11-2023 End: 02-12-2023 ambulatory Frankie Bright MD Facility:[facility] Start: 02-04-2023 End: 02-05-2023 ambulatory Frankie Bright MD Facility:[facility] Start: 05-02-2022 End: 05-02-2022 ambulatory Mary Lou Louie Facility:[facility] Start: 05-02-2022 End: 05-02-2022 ambulatory Services [facility] Work Phone: [facility] Work Phone: Start: 05-02-2022 End: 05-02-2022 Departed Referred Services [facility] Work Phone: [facility] Start: 01-09-2022 End: 01-10-[address] CRYSTAL STEINER Facility:[facility] Start: 01-02-[address] DOCTOR VICENTE Facility :[facility] Start: 02-03-2021 End: 02-03-2021 ambulatory FEDERICA EARLY Facility:[facility] Payers Date Payer Category Payer Private Health Insurance 1980 Unknown [id number] 1980 Unknown [id number] 1980 Unknown [id number] 1980 Unknown [id number] . [id number] 1980 Unknown [id number] . [id number] 1959 Self-pay 1959 Unknown [id number] Unknown [id number] Social History Date Type Detail Facility Tobacco smoking stat [facility] Unknown if ever smoked [facility] Work Phone: Start: 1980 Sex Assigned At Male F [facility] Consultation note 01-09-2022 Note Date & Type Note Facility 01-09-2022 Note CONSULTATION CONSULTATION DATE: 01/09/2022 CHIEF COMPLAINT: Low back pain, bilateral lower extremity pain. HISTORY OF PRESENT ILLNESS: This is a 41-year-old gentleman, who was referred to us from [facility]. The patient states he stepped out of a van holding an approximately 50 pound weight, subsequent to which he had severe low back pain that radiates down his leg. He also discusses neck pain and right arm pain. The patient states any activities, twisting, sitting, walking, laying down, housework activities aggravate the patient's pain, as does change in weather and sleep. The patient currently takes Celebrex 200 mg daily, clonazepam 1 mg t.i.d., tizanidine 4 mg daily. The patient also uses marijuana. The patient has been seen by Dr. Marin's office, completed physical therapy treatments a few years ago in [place]. The patient's PAST MEDICAL HISTORY / SURGICAL HISTORY / REVIEW OF SYSTEMS are noted on the chart, along with the MEDICATION LIST / ALLERGIES and a CT of the abdomen, which also shows the lumbar spine was reviewed in office today, which shows slight degenerative changes. No report is noted with regards to the lumbar spine. PHYSICAL EXAM: Upon entering the patient's room, the patient is there, shaking and crying in a non-physiological manner. Concerns became, at this point, with regards to the etiology the pathology. VITAL SIGNS: 153/86 with a heart rate of 96. At a height of 5'10 , the patient weighs 194 kg. IMPRESSION: Current other working diagnosis is psychogenic factors contributing to the patient's pain symptomatology, obesity. PLAN: The patient was offered a visit to the emergency room since he was reporting a pain level of 10/10 with a heart rate of 96 and a blood pressure of 153/86. The patient was informed that we would not be attending to him today, that he needs to have a current family physician who can address the social concerns of his, along with residential concerns and psychological concerns. The patient states that Mary Lou Louie, nurse practitioner at [facility] has ordered an x-ray of his lumbar spine which is scheduled here at [place]. Subsequent to reviewing the x-ray, we will determine whether the patient would benefit from an MRI prior to being seen and interventional treatment started. The patient has significant pain behavior. One again, the ER consult was offered to the patient. CC: HEBER Galarza [facility] Evaluation note Note Date & Type Note Facility Evaluation note No assessment information availa [facility] Work Phone: Summary Purpose Family History No Family History Records Found Relationship Condition Age at Onset Recorded Date/T giovanna Not Specified Thrombus Unknown Diabetes mellitus Unknown Depression Unknown Hypertension Unknown Advance Directives No Advanced Directives Records Found Advance Directive Response Recorded Date/ Time Advance Directives No May 02, 2022 7:08pm Chief Complaint and Reason for Visit Chief Complaint Essential (primary) hypertension Additional Source Comments (unrecognized sect ion and content) No Status Records FoundNo Status Records FoundNo Status Records FoundNo Status Records Found INFORMATION SOURCE (unrecogn ized section and content) DATE CREATED AUTHOR 07/07/2021 [facility] DATE CREATED AUTHOR AUTHOR'S ORGANIZ ATION 01/14/2022 [facility] DATE CREATED AUTHOR AUTHOR'S ORGANIZ ATION 05/08/2022 [facility] DATE CREATED AUTHOR AUTHOR'S ORGANIZ ATION 02/17/2023 [facility] Care Teams (unrecognized sec tion and content) Team Status: Inactive Member Role Status Dates Services [facility] Primary Care Provider Active Mary Lou Louie APRN PRODUCTION SUPPORT CONSULTANT-C Attending Provider Lamont montoya Team Status: Active Member Role Status Dates Services [facility] Primary Care Provider Active Goals (unrecognized section and content) Goals may be documented in a n alternate section FOR RECORDS PERTAINING TO PATIENTS WHO ARE OR HAVE BEEN ENROLLED IN A CHEMICAL DEPENDENCY/SUBSTANCEABUSE PROGRAM, SOME INFORMATION MAY BE OMITTED. This clinical summary was aggregated from multiple sources. Caution should be exercised in using it in the provision of clinical care. This summary normalizes information from multiple sources, and as a consequence, information in this document may materially change the coding, format and clinical context of patient data. In addition, data may be omitted in some cases. CLINICAL DECISIONS SHOULD BE BASED ON THE PRIMARY CLINICAL RECORDS. [facility] [employer] [facility] provides no warranty or guarantee of the accuracy or completeness of information in this document.
--- NOTE | 2023-04-24 13:50 | P.CN_ITS ---
Consult Note: HPI Data of Consult Requesting Physician: Kim Willis NP Primary Care Provider: Non-Staff Physician, MD Consult Narrative Reason for consult: f/u Narrative: Jacques lópez pleasant 42 year old male presents for evaluation and management of low back pain. Today rating pain 8/10 today in low back, sharp pain. BP 191/108. Patient has been out of lyrica but did notice benefit with this. Patient has had no new imaging, no PT/HEP. cc:: CC: Kim Willis NP Review of Systems ROS Status of ROS 10 or more systems reviewed and unremark able except as noted in history and below Musculoskeletal Reports: back pain Meds Home Medications and Allergies Home Medications Medication Instructions Recorded Confirmed Type amlodipine 10 mg tablet 10 mg PO .hs 02/04/23 02/04/23 History cetirizine 10 mg tablet (24Hour 10 mg PO DAILY PRN allergy symptoms 02/04/23 02/04/23 History Allergy) duloxetine 60 mg capsule,delayed 60 mg PO .HS 02/04/23 02/04/23 History release (Cymbalta) fluticasone 500 mcg-salmeterol 50 1 inh inhalation BID 02/04/23 02/04/23 History mcg/dose blistr powdr for inhalation (Advair Diskus) losartan 100 mg tablet 100 mg PO DAILY 02/04/23 02/04/23 History pantoprazole 40 mg tablet,delayed 40 mg PO DAILY PRN heartburn 02/04/23 02/04/23 History release pregabalin 50 mg capsule (Lyrica) 50 mg PO TID 02/04/23 02/04/23 History pregabalin 50 mg capsule (Lyrica) 50 mg PO TID #90 caps 02/04/23 Rx topiramate 50 mg capsule,extended 50 mg PO DAILY 02/04/23 02/04/23 History release 24 hr Allergies Allergy/AdvReac Type Severity Reaction Status Date / Time No Known Drug Allergies Allergy Verified 12/05/22 17:01 Exam Narrative Exam Narrative: Psych-alert and oriented x 3. Attentive and appropriate, constitutionally normal, displays normal mood and affect per situation.? There are no obvious deficits in memory, reasoning, or intellect.? Skin-no obvious rashes, bruising, erythema noted to the patient's area of pain. Extremities- extremities are warm with minimal edema and palpable pulses. Lumbar-no significant tenderness to palpation noted in the lumbar spine and paraspinal musculature.? Pain is elicited with extension, and lateral rotation of the lumbar spine. Range of motion is slightly diminished with these motions due to pain. Facet loading maneuvers are positive bilaterally and do appear to be concordant with the patient's normal complaints of pain.? Coordination remains intact.? Gait remains non-antalgic. Assessment and Plan Assessment and Plan (1) Hypertension: (2) Obesity: (3) Cervicalgia: (4) Lumbar spondylosis: Plan uncontrolled HTN, patient is to follow up with PCP. declining ER evaluation although patients reports constant headaches and now SOB. Denies vision changes, dizziness, lightheadedness, arm pain, nausea. unfortunately due to uncontrolled HTN I am not comfortable with medication management due to the risks vs benefits at this time based on review of systems, xray imaging. Patient was previously to do PT but did not go, would like to try aquatherapy before land therapy. home blood pressure monitor ordered for patient per pt request, advised to log BP at home and discuss with PCP f/u after PT
== END 2023-04-24 13:25 | disposition home or self-care (01) ==
LOC: PM 13:24
PROVIDERS: Visit Provider Nurse Practitioner
DX: M54.2 Cervicalgia (principal); I10 Essential (primary) hypertension; E66.9 Obesity, unspecified; M47.816 Spondylosis without myelopathy or radiculopathy, lumbar region
CPT/HCPCS: G0463

== ENCOUNTER 2023-06-24 10:49 | Outpatient (RCR) | payer OTHER, SELFPAY | END 2023-07-27 15:48 | disposition home or self-care (01) | LOC: PT 10:49 | PROVIDERS: Visit Provider Nurse Practitioner | DX: M47.816 Spondylosis without myelopathy or radiculopathy, lumbar region (principal) | CPT/HCPCS: 97113; 97162 ==

== ENCOUNTER 2023-09-06 08:11 | Emergency (ER) | payer OTHER, SELFPAY ==
[2023-09-06 08:17] VITALS: BP 205/118; PULSE 95; TEMP 36.9; O2SAT 94; BMI 68.1
--- OUTSIDE RECORDS SUMMARY | 2023-09-06 08:23 | XMS_ITS | CCD ---
Author Organization [facility] Inform ion [facility] Care Team Providers Care Recruitment Advertising Manager Name Role Phone FEDERICA EARLY Attending Unavailable CINTHIA, DR DUARTE Primary Care Unavailable FEDERICA EARLY Admitting Unavailable REYES, DR GUILLERMO Huang Consulting Unavailable FEDERICA EARLY Consulting Unavailable JATIN, DR CRYSTAL Ramirez Admitting Unavailable [facility] Primary Care Unavaila ble JATIN, DR CRYSTAL Ramirez Attending Unavailable JATIN, DR CRYSTAL Ramirez Consulting Unavailable MISDeborah, DR DUARTE Attending Unavailable [facility] Care Unavaila ble MISC, DR DUARTE Admitting Unavailable [facility] Primary Care Provider GAGE Louie Attending Provider Mary Lou Louie Attending Unavailab Mary Lou Shetty Admitting Unavailab [facility] Primary Care Unavaila ble Kaila MASON, Frankie Casas Attending Unavailable Kaila MASON, Frankie Casas Attending Unavailable Medications Current Medications Medication Drug Class(es) Dates Sig (Normalized) Sig (Original) [id number] 200 actuat albuterol 0.09 mg/actuat metered dose [...] on 05-02-2022 Albumin [Mass/Vol] 3.4 g/dL 3.2-5.5 [facility] Basophils Auto (Bld) [#/Vol] Ordered By: Mary Lou Louie on 05-02-2022 Basophils (Bld) [#/Vol] 0.0 10*3/uL 0.0-0.2 [facility] Basophils/100 WBC Auto (Bld) Ordered By: Mary Lou Louie on 05-02-2022 Basophils/100 WBC (Bld) 0.4 % . [facility] Cholesterol [Mass/volume] in Serum or PlasmaOrdered By: Mary Lou Louie on 05-02-2022 Cholesterol [Mass/Vol] 140 mg/dL 140-200 [facility] Comment on above: Chol less than 200 m g/dl low riskChol 201-239 mg/dl borderline riskChol 240 mg/dl and greater high risk Cholesterol in LDL Calc [Mas s/Vol]Ordered By: Mary Lou Louie on 05-02-2022 Cholesterol in LDL [Mass/Vol] 94 mg/dL 0-100 [facility] Comment on above: LDL ATP III CLASSIFI CATIONLDL less than 100 mg/dL OptimalLDL 100-129 mg/dL Near or above optimalLDL 130-159 mg/dL Borderline highLDL 160-189 mg/dL HighLDL greater than 189 mg/dL Very high Cholesterol in VLDL Calc [Ma ss/Vol]Ordered By: Mary Lou Louie on 05-02-2022 Cholesterol in VLDL [Mass/Vol] 10 mg/dL [facility] Complete Blood Count Auto Di ffon 05-02-2022 Basophils (Bld) [#/Vol] 0.0 10*3/uL Normal 0.0-0.2 [facility] Comment on above: Order Comment: Reaso n for Exam Essential (primary) hypertension Result Comment: PERF ORMED BY: [facility] [address] [place] [address] PATHOLOGIST [employer] DUNH[employer] M.D. Performed By: #### C BC, LIPID, TSH3 wRFLX, CMP #### [facility] [address] Basophils/100 WBC (Bld) 0.4 % Normal . [facility] Comment on above: Order Comment: Reaso n for Exam Essential (primary) hypertension Performed By: #### C BC, LIPID, TSH3 wRFLX, CMP #### [facility] [address] [place] [address] [place] Eosinophils (Bld) [#/Vol] 0.1 10*3/uL Normal 0.0-0.45 [facility] Comment on above: Order Comment: Reaso n for Exam Essential (primary) hypertension Performed By: #### C BC, LIPID, TSH3 wRFLX, CMP #### [facility] [address] [place] [address] [place] Eosinophils/100 WBC (Bld) 1.0 % Normal . [facility] Comment on above: Order Comment: Reaso n for Exam Essential (primary) hypertension Performed By: #### C BC, LIPID, TSH3 wRFLX, CMP #### [address] Erythrocyte distribution width (RBC) [Ratio] 15.6 % High 12.0-14.8 [facility] Comment on above: Order Comment: Reaso n for Exam Essential (primary) hypertension Performed By: #### C BC, LIPID, TSH3 wRFLX, CMP #### [address] Hematocrit (Bld) [Volume fraction] 48.4 % Normal 38.8-50.0 [facility] Comment on above: Order Comment: Reaso n for Exam Essential (primary) hypertension Performed By: #### C BC, LIPID, TSH3 wRFLX, CMP #### [address] Hemoglobin (Bld) [Mass/Vol] 15.9 g/dL Normal 13.0-17.0 [facility] Comment on above: Order Comment: Reaso n for Exam Essential (primary) hypertension Performed By: #### C BC, LIPID, TSH3 wRFLX, CMP #### [place] [address] [place] Lymphocytes (Bld) [#/Vol] 2.1 10*3/uL Normal 1.00-4.8 [facility] Comment on above: Order Comment: Reaso n for Exam Essential (primary) hypertension Performed By: #### C BC, LIPID, TSH3 wRFLX, CMP #### [facility] [address] [place] [address] [place] Lymphocytes/100 WBC (Bld) 19.6 % Normal . [facility] Comment on above: Order Comment: Reaso n for Exam Essential (primary) hypertension Performed By: #### C BC, LIPID, TSH3 wRFLX, CMP #### [address] [address] [place] MCH (RBC) [Entitic mass] 29.2 pg Normal 27.5-35.2 [facility] Comment on above: Order Comment: Reaso n for Exam Essential (primary) hypertension Performed By: #### C BC, LIPID, TSH3 wRFLX, CMP #### [facility] [address] [place] [address] MCV (RBC) [Entitic vol] 88.6 fL Normal 83.5-101 [facility] Comment on above: Order Comment: Reaso n for Exam Essential (primary) hypertension Performed By: #### C BC, LIPID, TSH3 wRFLX, CMP #### [facility] [address] [place] [address] Mean Corpuscular HGB Conc 32.9 g/dL Normal 32.5-35.6 [facility] Comment on above: Order Comment: Reaso n for Exam Essential (primary) hypertension Performed By: #### C BC, LIPID, TSH3 wRFLX, CMP #### [place] [address] [place] Monocytes (Bld) [#/Vol] 0.8 10*3/uL Normal 0.0-0.8 [facility] Comment on above: Order Comment: Reaso n for Exam Essential (primary) hypertension Performed By: #### C BC, LIPID, TSH3 wRFLX, CMP #### [facility] [address] [place] [address] [place] Monocytes/100 WBC (Bld) 7.1 % Normal . [facility] Comment on above: Order Comment: Reaso n for Exam Essential (primary) hypertension Performed By: #### C BC, LIPID, TSH3 wRFLX, CMP #### [facility] [address] [place] [address] [place] Neutrophils (Bld) [#/Vol] 7.7 10*3/uL Normal 1.8-7.7 [facility] Comment on above: Order Comment: Reaso n for Exam Essential (primary) hypertension Performed By: #### C BC, LIPID, TSH3 wRFLX, CMP #### [address] [place] [address] [place] Neutrophils/100 WBC (Bld) 71.9 % Normal . [facility] Comment on above: Order Comment: Reaso n for Exam Essential (primary) hypertension Performed By: #### C BC, LIPID, TSH3 wRFLX, CMP #### [facility] [address] NRBC% 0.1 /100{WBC} Normal 0-0.5 [facility] Comment on above: Order Comment: Reaso n for Exam Essential (primary) hypertension Performed By: #### C BC, LIPID, TSH3 wRFLX, CMP #### [address] Platelet mean volume (Bld) [Entitic vol] 9.3 fL Normal 6.6-10.1 [facility] Comment on above: Order Comment: Reaso n for Exam Essential (primary) hypertension Performed By: #### C BC, LIPID, TSH3 wRFLX, CMP #### [facility] [address] [place] [address] Platelets (Bld) [#/Vol] 284 10*3/uL Normal 150-450 [facility] Comment on above: Order Comment: Reaso n for Exam Essential (primary) hypertension Performed By: #### C BC, LIPID, TSH3 wRFLX, CMP #### [address] RBC (Bld) [#/Vol] 5.46 10*6/uL Normal 3.90-5.60 [facility] Comment on above: Order Comment: Reaso n for Exam Essential (primary) hypertension Performed By: #### C BC, LIPID, TSH3 wRFLX, CMP #### [facility] [address] [place] [address] [place] WBC (Bld) [#/Vol] 10.7 10*3/uL High 4.1-10.5 [facility] Comment on above: Order Comment: Reaso n for Exam Essential (primary) hypertension Performed By: #### C BC, LIPID, TSH3 wRFLX, CMP #### [address] [place] [address] [place] Comprehensive Metabolic Pane rosemarie 05-02-2022 Albumin [Mass/Vol] 3.4 g/dL Normal 3.2-5.5 [facility] Comment on above: Order Comment: Reaso n for Exam Essential (primary) hypertension Performed By: #### C BC, LIPID, TSH3 wRFLX, CMP #### [facility] [address] [place] [address] [place] Albumin/Globulin [Mass ratio] 0.9 {ratio} Normal [facility] Comment on above: Order Comment: Reaso n for Exam Essential (primary) hypertension Performed By: #### C BC, LIPID, TSH3 wRFLX, CMP #### [facility] [address] [place] [address] ALP [Catalytic activity/Vol] 112 U/L High 32-92 [facility] Comment on above: Order Comment: Reaso n for Exam Essential (primary) hypertension Performed By: #### C BC, LIPID, TSH3 wRFLX, CMP #### [facility] [address] [place], [place] [id number] [place] ALT [Catalytic activity/Vol] 17 U/L Normal 10-60 [facility] Comment on above: Order Comment: Reaso n for Exam Essential (primary) hypertension Performed By: #### C BC, LIPID, TSH3 wRFLX, CMP #### [facility] [address] [place], [place] [id number] [facility] Anion gap [Moles/Vol] 12.5 mmol/L Normal 6.0-15.0 [facility] Comment on above: Order Comment: Reaso n for Exam Essential (primary) hypertension Performed By: #### C BC, LIPID, TSH3 wRFLX, CMP #### [facility] [address] [place], [place] [phone] [place] AST [Catalytic activity/Vol] 20 U/L Normal 10-42 [facility] Comment on above: Order Comment: Reaso n for Exam Essential (primary) hypertension Performed By: #### C BC, LIPID, TSH3 wRFLX, CMP #### [facility] [address] [place], [place] [phone] [place] Bilirubin [Mass/Vol] 0.3 mg/dL Normal 0.3-1.2 [facility] Comment on above: Order Comment: Reaso n for Exam Essential (primary) hypertension Performed By: #### C BC, LIPID, TSH3 wRFLX, CMP #### [facility] [address] Calcium [Mass/Vol] 9.1 mg/dL Normal 8.2-10.2 [facility] Comment on above: Order Comment: Reaso n for Exam Essential (primary) hypertension Performed By: #### C BC, LIPID, TSH3 wRFLX, CMP #### [facility] [address] Chloride [Moles/Vol] 106 mmol/L Normal 95-114 [facility] Comment on above: Order Comment: Reaso n for Exam Essential (primary) hypertension Performed By: #### C BC, LIPID, TSH3 wRFLX, CMP #### [facility] [address] CO2 [Moles/Vol] 22.6 mmol/L Normal 22.0-30.0 [facility] Comment on above: Order Comment: Reaso n for Exam Essential (primary) hypertension Performed By: #### C BC, LIPID, TSH3 wRFLX, CMP #### [facility] [address] [place] [id number] [facility] Creatinine [Mass/Vol] 1.10 mg/dL Normal 0.64-1.27 [facility] Comment on above: Order Comment: Reaso n for Exam Essential (primary) hypertension Performed By: #### C BC, LIPID, TSH3 wRFLX, CMP #### [facility] [address] [place] [phone] [place] Estimated GFR ( Dawna > 60 Normal [facility] Comment on above: Order Comment: Reaso n for Exam Essential (primary) hypertension Result Comment: GFR estimated reference range: According to KDOQI guidelines, <60 ml/min/1.73m2 is sufficient to diagnose a patient with chronic kidney disease. Performed By: #### C BC, LIPID, TSH3 wRFLX, CMP #### [facility] [address] Estimated GFR (Non- Am > 60 Normal [facility] Comment on above: Order Comment: Reaso n for Exam Essential (primary) hypertension Performed By: #### C BC, LIPID, TSH3 wRFLX, CMP #### [facility] [address] [place] [phone] [facility] Globulin (S) [Mass/Vol] 3.7 g/dL Normal [facility] Comment on above: Order Comment: Reaso n for Exam Essential (primary) hypertension Performed By: #### C BC, LIPID, TSH3 wRFLX, CMP #### [facility] [address] Glucose [Mass/Vol] 96 mg/dL Normal 70-100 [facility] Comment on above: Order Comment: Reaso n for Exam Essential (primary) hypertension Result Comment: [facility] Glucose Reference Range is dependent on time and content of last meal. Glucose of more than 200 mg/dL in a nonstressed, ambulatory subject supports the diagnosis of Diabetes Mellitus. ADA recommended reference range Performed By: #### C BC, LIPID, TSH3 wRFLX, CMP #### [facility] [address] Potassium [Moles/Vol] 4.1 mmol/L Normal 3.5-5.1 [facility] Comment on above: Order Comment: Reaso n for Exam Essential (primary) hypertension Performed By: #### C BC, LIPID, TSH3 wRFLX, CMP #### [facility] [address] Protein [Mass/Vol] 7.1 g/dL Normal 6.1-7.9 [facility] Comment on above: Order Comment: Reaso n for Exam Essential (primary) hypertension Performed By: #### C BC, LIPID, TSH3 wRFLX, CMP #### [facility] [address] [place] [phone] [facility] Sodium [Moles/Vol] 137 mmol/L Normal 136-146 [facility] Comment on above: Order Comment: Reaso n for Exam Essential (primary) hypertension Performed By: #### C BC, LIPID, TSH3 wRFLX, CMP #### [facility] [address] [place] [phone] [place] Urea nitrogen [Mass/Vol] 16 mg/dL Normal 9-23 [facility] Comment on above: Order Comment: Reaso n for Exam Essential (primary) hypertension Performed By: #### C BC, LIPID, TSH3 wRFLX, CMP #### [facility] [address] [place] [phone] [place] Creatinine and Glomerular fi ltration rate.predicted panel (S/P/Bld)Ordered By: Mary Lou Louie on 05-02-2022 Creatinine [Mass/Vol] 1.10 mg/dL 0.64-1.27 [facility] Eosinophils Auto (Bld) [#/Vo l]Ordered By: Mary Lou Louie on 05-02-2022 Eosinophils (Bld) [#/Vol] 0.1 10*3/uL 0.0-0.45 [facility] Eosinophils/100 WBC Auto (Bl d)Ordered By: Mary Lou Louie on 05-02-2022 Eosinophils/100 WBC (Bld) 1.0 % . [facility] Erythrocyte distribution wid th Auto (RBC) [Ratio]Ordered By: Mary Lou Louie on 05-02-2022 Erythrocyte distribution width (RBC) [Ratio] 15.6 % 12.0-14.8 [facility] Estimated glomerular filtrat ion rate (GFR) non- AmericanOrdered By: Mary Lou Louie on 05-02-2022 GFR/1.73 sq M.predicted among non-blacks MDRD (S/P/Bld) [Vol rate/Area] > 60 mL/Min [facility] Globulin Calc (S) [Mass/Vol] Ordered By: Mary Lou Louie on 05-02-2022 Globulin (S) [Mass/Vol] 3.7 g/dL [facility] Hematocrit Auto (Bld) [Volum e fraction]Ordered By: Mary Lou Louie on 05-02-2022 Hematocrit (Bld) [Volume fraction] 48.4 % 38.8-50.0 [facility] Hemoglobin [Mass/volume] in BloodOrdered By: Mary Lou Louie on 05-02-2022 Hemoglobin (Bld) [Mass/Vol] 15.9 g/dL 13.0-17.0 [facility] Leukocytes [#/volume] correc vinicio for nucleated erythrocytes in Blood by Automated counOrdered By: Mary Lou Louie on 05-02-2022 WBC corrected for nucl RBC Auto (Bld) [#/Vol] 10.7 10*3/uL 4.1-10.5 [facility] Lipid Panelon 05-02-2022 Cholesterol [Mass/Vol] 140 mg/dL Normal 140-200 [facility] Comment on above: Order Comment: Reaso n for Exam Essential (primary) hypertension Result Comment: Chol less than 200 mg/dl low risk Chol 201-239 mg/dl borderline risk Chol 240 mg/dl and greater high risk Performed By: #### C BC, LIPID, TSH3 wRFLX, CMP #### [facility] [address] [place] [phone] [facility] Cholesterol in HDL [Mass/Vol] 35 mg/dL Normal 29-71 [facility] Comment on above: Order Comment: Reaso n for Exam Essential (primary) hypertension Result Comment: HDL CHOL ATP-III CLASSIFICATION Cardiovascular Risk HDL > or equal to 60 mg/dL LOW HDL < 40 mg/dL HIGH Performed By: #### C BC, LIPID, TSH3 wRFLX, CMP #### [facility] [address] [place] [address] [facility] Cholesterol.total/Choles terol in HDL [Mass ratio] 4.0 {ratio} Normal <5.0 [facility] Comment on above: Order Comment: Reaso n for Exam Essential (primary) hypertension Performed By: #### C BC, LIPID, TSH3 wRFLX, CMP #### [facility] [address] [place] [phone] [place] LDL Cholesterol,Calculated 94 mg/dL Normal 0-100 [facility] Comment on above: Order Comment: Reaso n for Exam Essential (primary) hypertension Result Comment: LDL ATP III CLASSIFICATION LDL less than 100 mg/dL Optimal LDL 100-129 mg/dL Near or above optimal LDL 130-159 mg/dL Borderline high LDL 160-189 mg/dL High LDL greater than 189 mg/dL Very high Performed By: #### C BC, LIPID, TSH3 wRFLX, CMP #### [facility] [address] Triglyceride w/Reflex 53 mg/dL Normal 35-149 [facility] Comment on above: Order Comment: Reaso [...] C BC, LIPID, TSH3 wRFLX, CMP #### [facility] [address] VLDL CHOLESTEROL 10 mg/dL Normal [facility] Comment on above: Order Comment: Reaso n for Exam Essential (primary) hypertension Performed By: #### C BC, LIPID, TSH3 wRFLX, CMP #### [facility] [address] Lymphocytes Auto (Bld) [#/Vo l]Ordered By: Mary Lou Louie on 05-02-2022 Lymphocytes (Bld) [#/Vol] 2.1 10*3/uL 1.00-4.8 [facility] Lymphocytes/100 WBC Auto (Bl d)Ordered By: Mary Lou Louie on 05-02-2022 Lymphocytes/100 WBC (Bld) 19.6 % . [facility] MCH Auto (RBC) [Entitic mass ]Ordered By: Mary Lou Louie on 05-02-2022 MCH (RBC) [Entitic mass] 29.2 pg 27.5-35.2 [facility] MCHC Auto (RBC) [Mass/Vol]Or dered By: Mary Lou Louie on 05-02-2022 MCHC (RBC) [Mass/Vol] 32.9 g/dL 32.5-35.6 [facility] MCV Auto (RBC) [Entitic vol] Ordered By: Mary Lou Louie on 05-02-2022 MCV (RBC) [Entitic vol] 88.6 fL 83.5-101 [facility] Monocytes Auto (Bld) [#/Vol] Ordered By: Mary Lou Louie on 05-02-2022 Monocytes (Bld) [#/Vol] 0.8 10*3/uL 0.0-0.8 [facility] Monocytes/100 WBC Auto (Bld) Ordered By: Mary Lou Louie on 05-02-2022 Monocytes/100 WBC (Bld) 7.1 % . [facility] Neutrophils Auto (Bld) [#/Vo l]Ordered By: Mary Lou Louie on 05-02-2022 Neutrophils (Bld) [#/Vol] 7.7 10*3/uL 1.8-7.7 [facility] Neutrophils/100 WBC Auto (Bl d)Ordered By: Mary Lou Louie on 05-02-2022 Neutrophils/100 WBC (Bld) 71.9 % . [facility] No Panel InformationOrdered By: Mary Lou Louie on 05-02-2022 Estimated GFR () > 60 mL/Min [facility] Comment on above: GFR estimated refere nce range: According to KDOQI guidelines, <60 ml/min/1.73m2 is sufficient to diagnose a patient with chronic kidney disease. Pharmacy Creatinine Clearance (Chem N/A [facility] Nucleated erythrocytes [Pres ence] in Blood by Automated countOrdered By: Mary Lou Louie on 05-02-2022 Nucleated RBC Auto Ql (Bld) 0.1 /100{WBC} 0-0.5 [facility] Platelet mean volume Auto (B ld) [Entitic vol]Ordered By: Mary Lou Louie on 05-02-2022 Platelet mean volume (Bld) [Entitic vol] 9.3 fL 6.6-10.1 [facility] Platelets Auto (Bld) [#/Vol] Ordered By: Mary Lou Louie on 05-02-2022 Platelets (Bld) [#/Vol] 284 10*3/uL 150-450 [facility] Protein [Mass/volume] in Ser um or PlasmaOrdered By: Mary Lou Louie on 05-02-2022 Protein [Mass/Vol] 7.1 g/dL 6.1-7.9 [facility] RBC Auto (Bld) [#/Vol]Ordere d By: Mary Lou Louie on 05-02-2022 RBC (Bld) [#/Vol] 5.46 10*6/uL 3.90-5.60 [facility] Serum or plasma alanine balderas otransferase measurement without P-5'-P (enzymatic activiOrdered By: Mary Lou Louie on 05-02-2022 ALT No additional P-5'-P [Catalytic activity/Vol] 17 U/L 10-60 [facility] Serum or plasma albumin/glob ulin mass ratioOrdered By: Mary Lou Louie on 05-02-2022 Albumin/Globulin [Mass ratio] 0.9 {ratio} [facility] Serum or plasma alkaline jemal sphatase measurement (enzymatic activity/volume)Ordered By: Mary Lou Louie on 05-02-2022 ALP [Catalytic activity/Vol] 112 U/L 32-92 [facility] Serum or plasma anion gap de terminationOrdered By: Mary Lou Louie on 05-02-2022 Anion gap [Moles/Vol] 12.5 mmol/L 6.0-15.0 [facility] Serum or plasma aspartate am inotransferase measurement (enzymatic activity/volume)Ordered By: Mary Lou Louie on 05-02-2022 AST [Catalytic activity/Vol] 20 U/L 10-42 [facility] Serum or plasma calcium juliana urement (mass/volume)Ordered By: Mary Lou Louie on 05-02-2022 Calcium [Mass/Vol] 9.1 mg/dL 8.2-10.2 [facility] Serum or plasma chloride blanca surement (moles/volume)Ordered By: Mary Lou Louie on 05-02-2022 Chloride [Moles/Vol] 106 mmol/L 95-114 [facility] Serum or plasma glucose juliana urement (mass/volume)Ordered By: Mary Lou Louie on 05-02-2022 Glucose [Mass/Vol] 96 mg/dL 70-100 [facility] Comment on above: ADA recommended refe rence rangeRandom Glucose Reference Range is dependent on time and content of last meal. Glucose of more than 200 mg/dL in a nonstressed, ambulatory subject supports the diagnosis of Diabetes Mellitus. Serum or plasma high density lipoprotein (HDL) cholesterol measurementOrdered By: Mary Lou Louie on 05-02-2022 Cholesterol in HDL [Mass/Vol] 35 mg/dL 29-71 [facility] Comment on above: HDL CHOL ATP-III CLA SSIFICATION Cardiovascular RiskHDL > or equal to 60 mg/dL LOWHDL < 40 mg/dL HIGH Serum or plasma potassium me asurement (moles/volume)Ordered By: Mary Lou Louie on 05-02-2022 Potassium [Moles/Vol] 4.1 mmol/L 3.5-5.1 [facility] Serum or plasma sodium measu rement (moles/volume)Ordered By: Mary Lou Louie on 05-02-2022 Sodium [Moles/Vol] 137 mmol/L 136-146 [facility] Serum or plasma total biliru bin measurement (mass/volume)Ordered By: Mary Lou Louie on 05-02-2022 Bilirubin [Mass/Vol] 0.3 mg/dL 0.3-1.2 [facility] Serum or plasma total carbon dioxide measurement (moles/volume)Ordered By: Mary Lou Louie on 05-02-2022 CO2 [Moles/Vol] 22.6 mmol/L 22.0-30.0 [facility] Serum or plasma total choles terol/high density lipoprotein (HDL) cholesterol mass ratOrdered By: Mary Lou Louie on 05-02-2022 Cholesterol.total/Choles terol in HDL [Mass ratio] 4.0 {ratio} <5.0 [facility] Serum or plasma urea nitroge n measurement (mass/volume)Ordered By: Mary Lou Louie on 05-02-2022 Urea nitrogen [Mass/Vol] 16 mg/dL 9- [facility] TSH DL <= 0.005 mIU/L QnOrde red By: Mary Louashleigh Louie on 05-02-2022 TSH Qn 2.26 m[IU]/L 0.45-5.33 [facility] Thyroid Stim Hormone w/Rflxo n 05-02-2022 Thyroid Stim Hormone w/Rflx 2.26 u[iU]/mL Normal 0.45-5.33 [facility] Comment on above: Order Comment: Reaso n for Exam Essential (primary) hypertension Result Comment: PERF ORMED BY: [facility] [address] [place] [address] PATHOLOGIST [employer] CE[employer] DUNHAM M.D. Performed By: #### C BC, LIPID, TSH3 wRFLX, CMP #### [address] Triglyceride [Mass/volume] i n Serum or PlasmaOrdered By: Mary Lou Louie on 05-02-2022 Triglyceride [Mass/Vol] 53 mg/dL 35-149 [facility] Comment on above: TRIG ATP III CLASSIF ICATIONTRIG less than 150 mg/dL NormalTRIG 150-199 mg/dL Borderline highTRIG 200-500 mg/dL High TRIG greater than 500 mg/dL Very highStandard traceable to the Center for Disease Conrtrol and Prevention (CDC) test method. WBC Auto (Bld) [#/Vol]Ordere d By: Mary Lou Louie on 05-02-2022 WBC (Bld) [#/Vol] 10.7 10*3/uL 4.1-10.5 [facility] Provider Letteron 05-08-2021 Provider Letter May 08, 2021 May 08, 2021 JACQUES ANTOINE [address] [place] [address] JACQUES ANTOINE 1980 Dear _ , You [...] do appreciate your understanding. Sincerely, [facility] [address] [place] [address] Normal [facility] ED Note-Physicianon 02-18-20 ED Note-Physician [id number] .[id number]:127 Normal [facility] Lab Reportson 02-17-2021 Lab Reports [id number]:127 Normal [facility] RAD - CT Reporton 02-17-2021 RAD - CT Report [id number]:127 Normal [facility] CBC AUTO DIFFon 02-03-2021 BASO # 0.1 103/ul Normal 0.0-0.1 [facility] Comment on above: Performed By: #### C BC #### [facility] [address] [place] [address] Dr. Thuan Enriquez Basophils/100 WBC (Bld) 0.5 % Normal 0.2-2.0 [facility] Comment on above: Performed By: #### C BC #### [facility] [address] [place] [address] Dr. Thuan Enriquez EO # 0.2 103/ul Normal 0.0-0.7 [facility] Comment on above: Performed By: #### C BC #### [facility] [address] [place] [address] Dr. Thuan Enriquez Eosinophils/100 WBC (Bld) 1.2 % Normal 0.9-7.0 [facility] Comment on above: Performed By: #### C BC #### [facility] [address] [place] [address] Dr. Thuan Enriquez Erythrocyte distribution width (RBC) [Ratio] 15.5 % Critically high 11.0-15.0 [facility] Comment on above: Performed By: #### C BC #### [facility] [address] [place] [address] Dr. Thuan Enriquez Hematocrit (Bld) [Volume fraction] 46.1 % Normal 42.0-54.0 [facility] Comment on above: Performed By: #### C BC #### [facility] [address] [place] [address] Dr. Thuan Enriquez Hemoglobin (Bld) [Mass/Vol] 15.3 g/dL Normal 14.0-18.0 [facility] Comment on above: Performed By: #### C BC #### [facility] [address] [place] [address] Dr. Thuan Enriquez IG # 0.10 10e3/ul Critically high 0.00-0.03 [facility] Comment on above: Performed By: #### C BC #### [facility] [address] [place] [address] Dr. Thuan Enriquez IG % 0.5 % Normal 0.0-0.5 [facility] Comment on above: Performed By: #### C BC #### [facility] [address] [place] [address] Dr. Thuan Enriquez LYMPH # 2.4 103/ul Normal 1.2-3.8 [facility] Comment on above: Performed By: #### C BC #### [facility] [address] [place] [address] Dr. Thuan Enriquez Lymphocytes/100 WBC (Bld) 18.7 % Critically low 20.5-60.0 [facility] Comment on above: Performed By: #### C BC #### [facility] [address] [place] [address] Dr. Thuan Enriquez MANUAL DIFF REQ NO Normal [facility] Comment on above: Performed By: #### C BC #### [facility] [address] [place] [address] Dr. Thuan Enriquez MCH (RBC) [Entitic mass] 29.5 pg Normal 25.9-34.0 [facility] Comment on above: Performed By: #### C BC #### [facility] [address] [place] [address] Dr. Thuan Erniquez MCHC (RBC) [Mass/Vol] 33.2 g/dL Normal 29.9-35.2 [facility] Comment on above: Performed By: #### C BC #### [facility] [address] [place] [address] Dr. Thuan Enriquez MCV (RBC) [Entitic vol] 89.0 fL Normal 80.0-94.0 [facility] Comment on above: Performed By: #### C BC #### [facility] [address] [place] [address] Dr. Thuan Enriquez MONO # 1.1 103/ul Critically high 0.3-0.8 [facility] Comment on above: Performed By: #### C BC #### [facility] [address] [place] [address] Dr. Thuan Enriquez Monocytes/100 WBC (Bld) 8.6 % Normal 1.7-12.0 [facility] Comment on above: Performed By: #### C BC #### [facility] [address] [place] [address] Dr. Thuan Enriquez NEUT # 9.1 103/ul Critically high 1.4-6.5 [facility] Comment on above: Performed By: #### C BC #### [facility] [address] [place] [address] Dr. Thuan Enriquez Neutrophils/100 WBC (Bld) 70.5 % Normal 43.0-75.0 [facility] Comment on above: Performed By: #### C BC #### [facility] [address] [place] [address] Dr. Thuan Enriquez Platelet mean volume (Bld) [Entitic vol] 10.7 fL Normal 9.5-13.5 [facility] Comment on above: Performed By: #### C BC #### [facility] [address] [place] [address] Dr. Thuan Enriquez PLT 332 103/ul Normal 150-450 [facility] Comment on above: Performed By: #### C BC #### [facility] [address] [place], [place] [address] Dr. Thuan Enriquez RBC 5.18 106/ul Normal 4.70-6.10 [facility] Comment on above: Performed By: #### C BC #### [facility] [address] [place], [place] [address] Dr. Thuan Enriquez WBC 12.8 103/ul Critically high 4.0-11.0 [facility] Comment on above: Performed By: #### C BC #### [facility] [address] [place], [place] [address] ABD/PELVIS WO CONon [...] GUILLERMO CHAMBERS Date: 2021-02-03 12:08 Normal [facility] ER URINE PROFILEon 1 Bilirubin Ql (U) Negative Normal NEGATIVE [facility] Comment on above: Performed By: #### Sury BLANC UMICRO #### [facility] [address] [place] [address] Dr. Thuan Enriquez Clarity (U) CLOUDY Abnormal CLEAR [facility] Comment on above: Performed By: #### Sury BLANC UMICRO #### [facility] [address] [place] [address] Dr. Thuan Enriquez Color (U) RED Abnormal YELLOW [facility] Comment on above: Performed By: #### Sury BLANC UMICRO #### [facility] [address] [place] [address] Dr. Thuan CHICAS A micrscopic examination will be performed if indicated. Normal [facility] Comment on above: Performed By: #### Sury BLANC UMICRO #### [facility] [address] [place] [address] Dr. Thuan Enriquez Glucose Ql (U) Negative Normal NEGATIVE [facility] Comment on above: Performed By: #### Sury BLANC UMICRO #### [facility] [address] [place] [address] Dr. Thuan Enriquez Hemoglobin Ql (U) LARGE Abnormal NEGATIVE [facility] [place] [facility] Comment on above: Performed By: #### Sury BLANC UMICRO #### [facility] [address] [place] [address] Dr. Thuan Enriquez Ketones Ql (U) Negative Normal NEGATIVE [facility] Comment on above: Performed By: #### Sury BLANC UMICRO #### [facility] [address] [place] [address] Dr. Thuan Enriquez LEUKOCYTES Negative Normal NEGATIVE [facility] Comment on above: Performed By: #### Sury BLANC UMICRO #### [facility] [address] [place] [address] Dr. Thuan Enriquez Nitrite Ql (U) Negative Normal NEGATIVE [facility] Comment on above: Performed By: #### Sury BLANC UMICRO #### [facility] [address] [place] [address] Dr. Thuan Enriquez pH (U) 6.0 [pH] Normal 5-9 [facility] Comment on above: Performed By: #### Sury BLANC, UMICRO #### [facility] [address] [place] [address] Dr. Thuan Enriquez Protein (U) [Mass/Vol] 30 mg/dL Abnormal NEGAT MONCHO/ TRACE [facility] Comment on above: Performed By: #### Sury BLANC, UMICRO #### [facility] [address] [place] [address] Dr. Thuan Enriquez SPEC GRAVITY >=1.030 Abnormal 1.005-<=1.02 5 [facility] Comment on above: Performed By: #### Sury BLANC, ICRO #### [facility] [address] [place] [address] Dr. Thuan Enriquez UR MICRO IND INDICATED Normal [facility] Comment on above: Performed By: #### Sury BLANC, ICRO #### [facility] [address] [place] [address] Dr. Thuan Enriquez Urobilinogen Qn (U) 1.0 {Leo'U}/dL Normal 0.2 - 1. 0 [facility] Comment on above: Performed By: #### Sury BLANC, ICRO #### [facility] [address] [place] [address] Dr. Thuan Enriquez PROF CHEM 8 (BAS METB)on Anion gap [Moles/Vol] 14.6 mmol/L Normal [facility] Comment on above: Performed By: #### B MP #### [facility] [address] [place] [address] Dr. Thuan Enriquez Calcium [Mass/Vol] 8.7 mg/dL Normal 8.4-10.2 [facility] Comment on above: Performed By: #### B MP #### [facility] [address] [place] [address] Dr. Thuan Enriquez Chloride [Moles/Vol] 103 mmol/L Normal 98-107 [facility] Comment on above: Performed By: #### B MP #### [facility] [address] [place] [address] [address] Thuan Enriquez CO2 [Moles/Vol] 22.8 mmol/L Normal 22.0-30.0 [facility] Comment on above: Performed By: #### B MP #### [facility] [address] [place] [address] [address] Thuan Enriquez Creatinine [Mass/Vol] 1.13 mg/dL Normal 0.66-1.25 [facility] Comment on above: Performed By: #### B MP #### [facility] [address] [place] [address] [address] Thuan Enriquez EGFR-AF BRITISH >60 Normal >=60 [facility] Comment on above: Performed By: #### B MP #### [facility] [address] [place] [address] [address] Thuan Enriquez EGFR-NON AF BRITISH >60 Normal >=60 [facility] Comment on above: Performed By: #### B MP #### [facility] [address] [place] [address] [address] Thuan Enriquez Glucose [Mass/Vol] 120 mg/dL Critically high 74-106 [facility] Comment on above: Performed By: #### B MP #### [facility] [address] [place] [address] Dr. Thuan Enriquez Potassium [Moles/Vol] 3.4 mmol/L Normal 3.4-5.0 [facility] Comment on above: Performed By: #### B MP #### [facility] [address] [place] [address] [address] Thuan Enriquez Sodium [Moles/Vol] 137 mmol/L Normal 137-145 [facility] Comment on above: Performed By: #### B MP #### [facility] [address] [place] [address] [address] Thuan Enriquez Urea nitrogen [Mass/Vol] 15.0 mg/dL Normal 9.0-20.0 [facility] Comment on above: Performed By: #### B MP #### [facility] [address] [place] [address] Dr. Thuan Enriquez Urea nitrogen/Creatinine [Mass ratio] 13.3 mg/mg Normal [facility] Comment on above: Performed By: #### B MP #### [facility] [address] [place] [address] Dr. Thuan Enriquez URINE MICROSCOPIC ONLYon BACTERIA TRACE Abnormal NONE SEEN [facility] Comment on above: Performed By: #### Sury BLANC UMICRO #### [facility] [address] [place] [address] Dr. Thuan Enriquez Bacteria identified Cx Nom (U) NOT INDICATED Normal [facility] Comment on above: Performed By: #### Sury BLANC UMICRO #### [facility] [address] [place] [address] Dr. Thuan Enriquez CAST NONE SEEN Normal NONE SEEN [facility] Comment on above: Performed By: #### Sury BLANC UMICRO #### [facility] [address] [place] [address] Dr. Thuan Enriquez Crystals LM Nom (Urine sed) NONE SEEN Normal NONE SEEN [facility] Comment on above: Performed By: #### Sury BLANC UMICRO #### [facility] [address] [place] [address] Dr. Thuan Enriquez Epithelial cells LM Ql (Urine sed) FEW Abnormal NONE SEEN /RARE [facility] Comment on above: Performed By: #### Sury BLANC UMICRO #### [facility] [address] [place] [address] Dr. Thuan Enriquez MUCOUS MODERATE Abnormal NONE SEEN [facility] Comment on above: Performed By: #### Sury BLANC UMICRO #### [facility] [address] [place] [address] Dr. Thuan Enriquez RBC (U) [#/Vol] /uL Abnormal 0-2 [facility] Comment on above: Performed By: #### Sury BLANC UMICRO #### [facility] [address] [place] [address] Dr. Thuan Enriquez WBC 2-5 Abnormal NONE SEEN [facility] Comment on above: Performed By: #### E RESHMA BLANC #### [facility] [id number] Thuan Enriquez Encounters Encounter Date Encounter Type Care Provider Facility Start: 02-11-2023 End: 02-12-2023 ambulatory Frankie Bright MD Facility:[facility] [place] Start: 02-04-2023 End: 02-05-2023 ambulatory Frankie Bright MD Facility:[facility] Start: 05-02-2022 End: 05-02-2022 ambulatory Mary Lou Louie Facility:[facility] Start: 05-02-2022 End: 05-02-2022 ambulatory Services [facility] Work Phone: [facility] Work Phone: Start: 05-02-2022 End: 05-02-2022 Departed Referred Services [facility] Work Phone: [facility] Start: 01-09-2022 End: 01-10-[address] CRYSTAL STEINER Facility:[facility] Start: 01-02-[address] DOCTOR VICENTE Facility :[facility] Start: 02-03-2021 End: 02-03-2021 ambulatory FEDERICA EARLY Facility: Payers Date Payer Category Payer Private Health Insurance 1980 Unknown [id number] .[id number] 1980 Unknown [id number] .[id number] 1980 Unknown [id number] .16.84 [id number] 1980 Unknown [id number]. [id number] 1980 Unknown [id number] .16. [id number] 1959 Self-pay 1959 Unknown [id number] Unknown [id number] Social History Date Type Detail Facility Tobacco smoking stat [facility] Unknown if ever smoked [facility] Work Phone: Start: 1980 Sex Assigned At Male F [facility] Consultation note 01-09-2022 Note Date & Type Note Facility 01-09-2022 Note CONSULTATION CONSULTATION DATE: 01/09/2022 CHIEF COMPLAINT: Low back pain, bilateral lower extremity pain. HISTORY OF PRESENT ILLNESS: This is a 41-year-old gentleman, who was referred to us from [facility]. The patient states he stepped out of [...] therapy treatments a few years ago in [place]. The patient's PAST MEDICAL HISTORY / SURGICAL [...] that Mary Lou Louie, nurse practitioner at [facility] has ordered an x-ray of his lumbar spine which is scheduled here at [place]. Subsequent to reviewing the x-ray, we will determine whether the patient would benefit from an MRI prior to being seen and interventional treatment started. The patient has significant pain behavior. One again, the ER consult was offered to the patient. CC: Mary Lou Louie, HEBER [facility] Evaluation note Note Date & Type Note Facility Evaluation note No assessment information availa [facility] Work Phone: Summary Purpose Family History No [...] AUTHOR 07/07/2021 [facility] DATE CREATED AUTHOR AUTHOR'S ORGANIZ ATION 01/14/2022 [facility] DATE CREATED AUTHOR AUTHOR'S ORGANIZ ATION 05/08/2022 [facility] DATE CREATED AUTHOR AUTHOR'S ORGANIZ ATION 02/17/2023 [facility] Care Teams (unrecognized sec tion and content) Team Status: Inactive Member Role Status Dates Services [facility] Primary Care Provider Active Mary Lou Louie APRN CRABBER-C Attending Provider Lamont montoya Team Status: Active Member Role Status Dates Services [facility] Primary Care Provider Active Goals (unrecognized section [...] BE BASED ON THE PRIMARY CLINICAL RECORDS. Somewhere [facility]. provides no warranty or guarantee of the accuracy or completeness of information in this document.
[2023-09-06 08:33] VITALS: BP 200/85
--- NOTE | 2023-09-06 08:36 | ED.GENADUL1 ---
HPI HPI - General Adult General Chief complaint: Upper Respiratory Infection Stated complaint: SORE THROAT Time Seen by Provider: 09/06/23 08:21 Source: patient Mode of arrival: Wheelchair Limitations: physical limitation History of Present Illness HPI narrative: 43-year-old male presents for sore throat which she has had for 4 days. It hurts more when he swallows. No fever or ear pain. No known ill contacts. He also ran out of his blood pressure medicine about 4 days ago. Related Data Home Medications ?Medication ?Instructions ?Recorded ?Confirmed amlodipine 10 mg tablet 10 mg PO .hs 02/04/23 09/06/23 cetirizine 10 mg tablet (24Hour 10 mg PO DAILY PRN allergy symptoms 02/04/23 02/04/23 Allergy) duloxetine 60 mg capsule,delayed 60 mg PO .HS 02/04/23 09/06/23 release (Cymbalta) fluticasone 500 mcg-salmeterol 50 1 inh inhalation BID 02/04/23 02/04/23 mcg/dose blistr powdr for inhalation (Advair Diskus) losartan 100 mg tablet 100 mg PO DAILY 02/04/23 09/06/23 pantoprazole 40 mg tablet,delayed 40 mg PO DAILY PRN heartburn 02/04/23 09/06/23 release pregabalin 50 mg capsule (Lyrica) 50 mg PO TID 02/04/23 02/04/23 topiramate 50 mg capsule,extended 50 mg PO DAILY 02/04/23 02/04/23 release 24 hr valsartan 320 1 tab PO DAILY 09/06/23 09/06/23 mg-hydrochlorothiazide 25 mg tablet Previous Rx's ?Medication ?Instructions ?Recorded pregabalin 50 mg capsule (Lyrica) 50 mg PO TID #90 caps 02/04/23 amlodipine 10 mg tablet 10 mg PO DAILY #10 tabs 09/06/23 amoxicillin 500 mg capsule 500 mg PO TID 10 days #30 caps 09/06/23 valsartan 320 1 tab PO DAILY #10 tabs 09/06/23 mg-hydrochlorothiazide 25 mg tablet Allergies Allergy/AdvReac Type Severity Reaction Status Date / Time No Known Drug Allergies Allergy Verified 09/06/23 08:20 Opioid HPI Opioid Management Most Recent Opioid Data: Last Pain Scale 10 09/06/23 08:41 Last MAR Pain Assessment 09/06/23 08:40 Review of Systems ROS Narrative A ten point review of systems is negative except as noted above. Exam Narrative Exam Narrative: Nurses note and vital signs reviewed and patient is not hypoxic. General: The patient appears in no apparent distress. Patient is resting comfortably on cart. Skin: Warm, dry, no pallor noted. There is no rash noted. Head: Normocephalic, atraumatic Eye: Normal conjunctiva, no drainage, EOMI. PERRL Ears, Nose, Mouth, and Throat: oral mucosa is moist. Nares patent. Minimal pharyngeal erythema without any swelling or exudate. Uvula midline. No peritonsillar swelling. He is handling his oral secretions well. Cardiovascular: Regular Rate and Rhythm Respiratory: Patient is in no distress, no accessory muscle use, lungs are clear to auscultation, no wheezing, rales or rhonchi Back: non-tender GI: Obese and nontender Musculoskeletal: The patient has no evidence of calf tenderness, no pitting edema, symmetrical pulses noted bilaterally Neurological: A&O, normal speech Psychiatric: Cooperative Constitutional Vital Signs, click to edit/add: Last Vital Signs Temp 98.4 F 09/06/23 08:17 Pulse 95 H 09/06/23 08:17 Resp 20 09/06/23 08:17 BP 200/85 H 09/06/23 08:33 Pulse Ox 94 L 09/06/23 08:17 O2 Del Method Room Air 09/06/23 08:17 Course Vital Signs Vital signs: Vital Signs Temperature 98.4 F 09/06/23 08:17 Pulse Rate 95 H 09/06/23 08:17 Respiratory Rate 09/06/23 08:17 Blood Pressure 205/118 H 09/06/23 08:17 Pulse Oximetry 94 L 09/06/23 08:17 Oxygen Delivery Method Room Air 09/06/23 08:17 Temperature 98.4 F 09/06/23 08:17 Pulse Rate 95 H 09/06/23 08:17 Respiratory Rate 20 09/06/23 08:17 Blood Pressure 200/85 H 09/06/23 08:33 Pulse Oximetry 94 L 09/06/23 08:17 Oxygen Delivery Method Room Air 09/06/23 08:17 Medical Decision Making MDM Narrative Medical decision making narrative: Strep test is positive and he was given a prescription for amoxicillin. He was also given refills for his antihypertensives and he has an appointment with his PCP in 5 days that he will keep. Treatment diagnosis and follow-up were discussed with the patient. Differential Diagnosis Differential Diagnosis: Strep throat, viral pharyngitis, peritonsillar abscess Lab Data Lab results reviewed: Yes I reviewed the patient's lab results Labs: Lab Results 09/06/23 Range/Units 08:20 Streptococcus Screen Positive A Discharge Plan Discharge Stand Alone Forms: Portal Instructions Chief Complaint: Upper Respiratory Infection Clinical Impression: Medication refill, Strep throat Patient Disposition: Home, Self-Care Time of Disposition Decision: 09:29 Condition: Good Prescriptions / Home Meds: New amlodipine 10 mg tablet 10 mg PO DAILY Qty: 10 0RF valsartan-hydrochlorothiazide 320-25 mg tablet 1 tab PO DAILY Qty: 10 0RF amoxicillin 500 mg capsule 500 mg PO TID 10 Days Qty: 30 0RF No Action pregabalin [Lyrica] 50 mg capsule 50 mg PO TID Qty: 90 0RF pregabalin [Lyrica] 50 mg capsule 50 mg PO TID fluticasone propion-salmeterol [Advair Diskus] 500-50 mcg/dose blister with device 1 inh inhalation BID cetirizine [24Hour Allergy] 10 mg tablet 10 mg PO DAILY PRN (Reason: allergy symptoms) duloxetine [Cymbalta] 60 mg capsule,delayed release(DR/EC) 60 mg PO .HS losartan 100 mg tablet 100 mg PO DAILY pantoprazole 40 mg tablet,delayed release (DR/EC) 40 mg PO DAILY PRN (Reason: heartburn) topiramate 50 mg capsule,extended release 24hr 50 mg PO DAILY amlodipine 10 mg tablet 10 mg PO .hs valsartan-hydrochlorothiazide 320-25 mg tablet 1 tab PO DAILY Print Language: Macedonian Instructions: Strep Throat (ED), Medicine Refill (ED) Additional Instructions: See your PCP at your scheduled appointment in 5 days. Referrals: Physician,Non-Staff, MD [Primary Care Provider] - 1 week
[2023-09-06] MEDS: KETOROLAC TROMETHAMINE 60 MG/2 ML VIAL IM (08:40)
[2023-09-06 08:45] LABS: Internal Control Within Normal Limits; Strep A Antigen Screen Positive
[2023-09-06 09:34] VITALS: BP 173/93; PULSE 84; O2SAT 91
== END 2023-09-06 09:37 | disposition home or self-care (01) ==
PROVIDERS: Emergency Provider Emergency Medicine
DX: J02.0 Streptococcal pharyngitis (principal); Z76.0 Encounter for issue of repeat prescription
CPT/HCPCS: 87880; 96372; 99284

== ENCOUNTER 2023-09-13 22:16 | Emergency (ER) | payer OTHER, SELFPAY ==
[2023-09-13 22:23] VITALS: BP 159/101; PULSE 109; TEMP 36.7; O2SAT 93; BMI 62.4
--- OUTSIDE RECORDS SUMMARY | 2023-09-13 22:24 | XMS_ITS | CCD ---
Author Organization [facility] Inform ion [facility] Care Team Providers Care Erp Consultant Name Role Phone FEDERICA EARLY Attending Unavailable CINTHIA, DR DUARTE Primary Care Unavailable FEDERICA EARLY Admitting Unavailable REYES, DR GUILLERMO Huang Consulting Unavailable FEDERICA EARLY Consulting Unavailable JATIN, DR CRYSTAL Ramirez Admitting Unavailable [facility] Primary Care Unavaila ble JATIN, DR CRYSTAL Ramirez Attending Unavailable STEINER, DR CRYSTAL Ramirez Consulting Unavailable MISDeborah, DR DUARTE Attending Unavailable [facility] Care Unavaila ble MISC, DR DUARTE Admitting Unavailable [facility] Primary Care Provider GAGE Louie Attending Provider Mary Lou Louie Attending Unavailab Mary Lou Shetty Admitting Unavailab [facility] Primary Care Unavaila ble Kaila MASON, Frankie Casas Attending Unavailable Kaila MASON, Frankie Casas Attending Unavailable Medications Current Medications Medication Drug Class(es) Dates Sig (Normalized) Sig (Original) [id number] 200 actuat albuterol 0.09 mg/actuat metered dose [...] on 05-02-2022 Albumin [Mass/Vol] 3.4 g/dL 3.2-5.5 [facility] Basophils Auto (Bld) [#/Vol] Ordered By: Mary Lou Louie on 05-02-2022 Basophils (Bld) [#/Vol] 0.0 10*3/uL 0.0-0.2 [facility] Basophils/100 WBC Auto (Bld) Ordered By: Mary Lou Louie on 05-02-2022 Basophils/100 WBC (Bld) 0.4 % . [facility] Cholesterol [Mass/volume] in Serum or PlasmaOrdered By: Mary Lou Louie on 05-02-2022 Cholesterol [Mass/Vol] 140 mg/dL 140-200 [facility] Comment on above: Chol less than 200 m g/dl low riskChol 201-239 mg/dl borderline riskChol 240 mg/dl and greater high risk Cholesterol in LDL Calc [Mas s/Vol]Ordered By: Mary Lou Louie on 05-02-2022 Cholesterol in LDL [Mass/Vol] 94 mg/dL 0-100 [facility] Comment on above: LDL ATP III CLASSIFI CATIONLDL less than 100 mg/dL OptimalLDL 100-129 mg/dL Near or above optimalLDL 130-159 mg/dL Borderline highLDL 160-189 mg/dL HighLDL greater than 189 mg/dL Very high Cholesterol in VLDL Calc [Ma ss/Vol]Ordered By: Mary Lou Louie on 05-02-2022 Cholesterol in VLDL [Mass/Vol] 10 mg/dL [facility] Complete Blood Count Auto Di ffon 05-02-2022 Basophils (Bld) [#/Vol] 0.0 10*3/uL Normal 0.0-0.2 [facility] Comment on above: Order Comment: Reaso n for Exam Essential (primary) hypertension Result Comment: PERF ORMED BY: [facility] [address] [place] [address] PATHOLOGIST SECTION SUPERVISOR CECE DUNHAM M.D. Performed By: #### C BC, LIPID, TSH3 wRFLX, CMP #### [facility] [address] Basophils/100 WBC (Bld) 0.4 % Normal . [facility] Comment on above: Order Comment: Reaso n for Exam Essential (primary) hypertension Performed By: #### C BC, LIPID, TSH3 wRFLX, CMP #### [facility] [address] [place] [address] [place] Eosinophils (Bld) [#/Vol] 0.1 10*3/uL Normal 0.0-0.45 [facility] Comment on above: Order Comment: Reaso n for Exam Essential (primary) hypertension Performed By: #### C BC, LIPID, TSH3 wRFLX, CMP #### [facility] [address] [place] [address] [place] Eosinophils/100 WBC (Bld) 1.0 % Normal . [facility] Comment on above: Order Comment: Reaso n for Exam Essential (primary) hypertension Performed By: #### C BC, LIPID, TSH3 wRFLX, CMP #### [address] Erythrocyte distribution width (RBC) [Ratio] 15.6 % High 12.0-14.8 [facility] Comment on above: Order Comment: Reaso n for Exam Essential (primary) hypertension Performed By: #### C BC, LIPID, TSH3 wRFLX, CMP #### [address] Hematocrit (Bld) [Volume fraction] 48.4 % Normal 38.8-50.0 [facility] Comment on above: Order Comment: Reaso n for Exam Essential (primary) hypertension Performed By: #### C BC, LIPID, TSH3 wRFLX, CMP #### [address] Hemoglobin (Bld) [Mass/Vol] 15.9 g/dL Normal 13.0-17.0 [facility] Comment on above: Order Comment: Reaso n for Exam Essential (primary) hypertension Performed By: #### C BC, LIPID, TSH3 wRFLX, CMP #### [place] [address] [place] Lymphocytes (Bld) [#/Vol] 2.1 10*3/uL Normal 1.00-4.8 [facility] Comment on above: Order Comment: Reaso n for Exam Essential (primary) hypertension Performed By: #### C BC, LIPID, TSH3 wRFLX, CMP #### [facility] [address] [place] [address] [place] Lymphocytes/100 WBC (Bld) 19.6 % Normal . [facility] Comment on above: Order Comment: Reaso n for Exam Essential (primary) hypertension Performed By: #### C BC, LIPID, TSH3 wRFLX, CMP #### [address] [address] [place] MCH (RBC) [Entitic mass] 29.2 pg Normal 27.5-35.2 [facility] Comment on above: Order Comment: Reaso n for Exam Essential (primary) hypertension Performed By: #### C BC, LIPID, TSH3 wRFLX, CMP #### [facility] [address] [place] [address] MCV (RBC) [Entitic vol] 88.6 fL Normal 83.5-101 [facility] Comment on above: Order Comment: Reaso n for Exam Essential (primary) hypertension Performed By: #### C BC, LIPID, TSH3 wRFLX, CMP #### [facility] [address] [place] [address] Mean Corpuscular HGB Conc 32.9 g/dL Normal 32.5-35.6 [facility] Comment on above: Order Comment: Reaso n for Exam Essential (primary) hypertension Performed By: #### C BC, LIPID, TSH3 wRFLX, CMP #### [place] [address] [place] Monocytes (Bld) [#/Vol] 0.8 10*3/uL Normal 0.0-0.8 [facility] Comment on above: Order Comment: Reaso n for Exam Essential (primary) hypertension Performed By: #### C BC, LIPID, TSH3 wRFLX, CMP #### [facility] [address] [place] [address] [place] Monocytes/100 WBC (Bld) 7.1 % Normal . [facility] Comment on above: Order Comment: Reaso n for Exam Essential (primary) hypertension Performed By: #### C BC, LIPID, TSH3 wRFLX, CMP #### [facility] [address] [place] [address] [place] Neutrophils (Bld) [#/Vol] 7.7 10*3/uL Normal 1.8-7.7 [facility] Comment on above: Order Comment: Reaso n for Exam Essential (primary) hypertension Performed By: #### C BC, LIPID, TSH3 wRFLX, CMP #### [address] [place] [address] [place] Neutrophils/100 WBC (Bld) 71.9 % Normal . [facility] Comment on above: Order Comment: Reaso n for Exam Essential (primary) hypertension Performed By: #### C BC, LIPID, TSH3 wRFLX, CMP #### [facility] [address] NRBC% 0.1 /100{WBC} Normal 0-0.5 [facility] Comment on above: Order Comment: Reaso n for Exam Essential (primary) hypertension Performed By: #### C BC, LIPID, TSH3 wRFLX, CMP #### [address] Platelet mean volume (Bld) [Entitic vol] 9.3 fL Normal 6.6-10.1 [facility] Comment on above: Order Comment: Reaso n for Exam Essential (primary) hypertension Performed By: #### C BC, LIPID, TSH3 wRFLX, CMP #### [facility] [address] [place] [address] Platelets (Bld) [#/Vol] 284 10*3/uL Normal 150-450 [facility] Comment on above: Order Comment: Reaso n for Exam Essential (primary) hypertension Performed By: #### C BC, LIPID, TSH3 wRFLX, CMP #### [address] RBC (Bld) [#/Vol] 5.46 10*6/uL Normal 3.90-5.60 [facility] Comment on above: Order Comment: Reaso n for Exam Essential (primary) hypertension Performed By: #### C BC, LIPID, TSH3 wRFLX, CMP #### [facility] [address] [place] [address] [place] WBC (Bld) [#/Vol] 10.7 10*3/uL High 4.1-10.5 [facility] Comment on above: Order Comment: Reaso n for Exam Essential (primary) hypertension Performed By: #### C BC, LIPID, TSH3 wRFLX, CMP #### [address] [place] [address] [place] Comprehensive Metabolic Pane rosemarie 05-02-2022 Albumin [Mass/Vol] 3.4 g/dL Normal 3.2-5.5 [facility] Comment on above: Order Comment: Reaso n for Exam Essential (primary) hypertension Performed By: #### C BC, LIPID, TSH3 wRFLX, CMP #### [facility] [address] [place] [address] [place] Albumin/Globulin [Mass ratio] 0.9 {ratio} Normal [facility] Comment on above: Order Comment: Reaso n for Exam Essential (primary) hypertension Performed By: #### C BC, LIPID, TSH3 wRFLX, CMP #### [facility] [address] [place] [address] ALP [Catalytic activity/Vol] 112 U/L High 32-92 [facility] Comment on above: Order Comment: Reaso n for Exam Essential (primary) hypertension Performed By: #### C BC, LIPID, TSH3 wRFLX, CMP #### [facility] [address] [place], [place] [id number] [place] ALT [Catalytic activity/Vol] 17 U/L Normal 10-60 [facility] Comment on above: Order Comment: Reaso n for Exam Essential (primary) hypertension Performed By: #### C BC, LIPID, TSH3 wRFLX, CMP #### [facility] [address] [place], [place] [id number] [facility] Anion gap [Moles/Vol] 12.5 mmol/L Normal 6.0-15.0 [facility] Comment on above: Order Comment: Reaso n for Exam Essential (primary) hypertension Performed By: #### C BC, LIPID, TSH3 wRFLX, CMP #### [facility] [address] [place], [place] [id number] [place] AST [Catalytic activity/Vol] 20 U/L Normal 10-42 [facility] Comment on above: Order Comment: Reaso n for Exam Essential (primary) hypertension Performed By: #### C BC, LIPID, TSH3 wRFLX, CMP #### [facility] [address] [place], [place] [id number] [place] Bilirubin [Mass/Vol] 0.3 mg/dL Normal 0.3-1.2 [facility] Comment on above: Order Comment: Reaso n for Exam Essential (primary) hypertension Performed By: #### C BC, LIPID, TSH3 wRFLX, CMP #### [facility] [address] Calcium [Mass/Vol] 9.1 mg/dL Normal 8.2-10.2 [facility] Comment on above: Order Comment: Reaso n for Exam Essential (primary) hypertension Performed By: #### C BC, LIPID, TSH3 wRFLX, CMP #### [facility] [address] Chloride [Moles/Vol] 106 mmol/L Normal 95-114 [facility] Comment on above: Order Comment: Reaso n for Exam Essential (primary) hypertension Performed By: #### C BC, LIPID, TSH3 wRFLX, CMP #### [facility] [address] CO2 [Moles/Vol] 22.6 mmol/L Normal 22.0-30.0 [facility] Comment on above: Order Comment: Reaso n for Exam Essential (primary) hypertension Performed By: #### C BC, LIPID, TSH3 wRFLX, CMP #### [facility] [address] [place] [id number] [facility] Creatinine [Mass/Vol] 1.10 mg/dL Normal 0.64-1.27 [facility] Comment on above: Order Comment: Reaso n for Exam Essential (primary) hypertension Performed By: #### C BC, LIPID, TSH3 wRFLX, CMP #### [facility] [address] [place] [id number] [place] Estimated GFR ( Dawna > 60 Normal [facility] Comment on above: Order Comment: Reaso n for Exam Essential (primary) hypertension Result Comment: GFR estimated reference range: According to KDOQI guidelines, <60 ml/min/1.73m2 is sufficient to diagnose a patient with chronic kidney disease. Performed By: #### C BC, LIPID, TSH3 wRFLX, CMP #### [facility] [address] Estimated GFR (Non- Am > 60 Normal [facility] Comment on above: Order Comment: Reaso n for Exam Essential (primary) hypertension Performed By: #### C BC, LIPID, TSH3 wRFLX, CMP #### [facility] [address] [place] [id number] [facility] Globulin (S) [Mass/Vol] 3.7 g/dL Normal [facility] Comment on above: Order Comment: Reaso n for Exam Essential (primary) hypertension Performed By: #### C BC, LIPID, TSH3 wRFLX, CMP #### [facility] [address] Glucose [Mass/Vol] 96 mg/dL Normal 70-100 [facility] Comment on above: Order Comment: Reaso n for Exam Essential (primary) hypertension Result Comment: [facility] Glucose Reference Range is dependent on time and content of last meal. Glucose of more than 200 mg/dL in a nonstressed, ambulatory subject supports the diagnosis of Diabetes Mellitus. ADA recommended reference range Performed By: #### C BC, LIPID, TSH3 wRFLX, CMP #### [facility] [address] Potassium [Moles/Vol] 4.1 mmol/L Normal 3.5-5.1 [facility] Comment on above: Order Comment: Reaso n for Exam Essential (primary) hypertension Performed By: #### C BC, LIPID, TSH3 wRFLX, CMP #### [facility] [address] Protein [Mass/Vol] 7.1 g/dL Normal 6.1-7.9 [facility] Comment on above: Order Comment: Reaso n for Exam Essential (primary) hypertension Performed By: #### C BC, LIPID, TSH3 wRFLX, CMP #### [facility] [address] [place] [id number] [facility] Sodium [Moles/Vol] 137 mmol/L Normal 136-146 [facility] Comment on above: Order Comment: Reaso n for Exam Essential (primary) hypertension Performed By: #### C BC, LIPID, TSH3 wRFLX, CMP #### [facility] [address] [place] [id number] [place] Urea nitrogen [Mass/Vol] 16 mg/dL Normal 9-23 [facility] Comment on above: Order Comment: Reaso n for Exam Essential (primary) hypertension Performed By: #### C BC, LIPID, TSH3 wRFLX, CMP #### [facility] [address] [place] [id number] [place] Creatinine and Glomerular fi ltration rate.predicted panel (S/P/Bld)Ordered By: Mary Lou Louie on 05-02-2022 Creatinine [Mass/Vol] 1.10 mg/dL 0.64-1.27 [facility] Eosinophils Auto (Bld) [#/Vo l]Ordered By: Mary Lou Louie on 05-02-2022 Eosinophils (Bld) [#/Vol] 0.1 10*3/uL 0.0-0.45 [facility] Eosinophils/100 WBC Auto (Bl d)Ordered By: Mary Lou Louie on 05-02-2022 Eosinophils/100 WBC (Bld) 1.0 % . [facility] Erythrocyte distribution wid th Auto (RBC) [Ratio]Ordered By: Mary Lou Louie on 05-02-2022 Erythrocyte distribution width (RBC) [Ratio] 15.6 % 12.0-14.8 [facility] Estimated glomerular filtrat ion rate (GFR) non- AmericanOrdered By: Mary Lou Louie on 05-02-2022 GFR/1.73 sq M.predicted among non-blacks MDRD (S/P/Bld) [Vol rate/Area] > 60 mL/Min [facility] Globulin Calc (S) [Mass/Vol] Ordered By: Mary Lou Louie on 05-02-2022 Globulin (S) [Mass/Vol] 3.7 g/dL [facility] Hematocrit Auto (Bld) [Volum e fraction]Ordered By: Mary Lou Louie on 05-02-2022 Hematocrit (Bld) [Volume fraction] 48.4 % 38.8-50.0 [facility] Hemoglobin [Mass/volume] in BloodOrdered By: Mary Lou Louie on 05-02-2022 Hemoglobin (Bld) [Mass/Vol] 15.9 g/dL 13.0-17.0 [facility] Leukocytes [#/volume] correc vinicio for nucleated erythrocytes in Blood by Automated counOrdered By: Mary Lou Louie on 05-02-2022 WBC corrected for nucl RBC Auto (Bld) [#/Vol] 10.7 10*3/uL 4.1-10.5 [facility] Lipid Panelon 05-02-2022 Cholesterol [Mass/Vol] 140 mg/dL Normal 140-200 [facility] Comment on above: Order Comment: Reaso n for Exam Essential (primary) hypertension Result Comment: Chol less than 200 mg/dl low risk Chol 201-239 mg/dl borderline risk Chol 240 mg/dl and greater high risk Performed By: #### C BC, LIPID, TSH3 wRFLX, CMP #### [facility] [address] [place] [id number] [facility] Cholesterol in HDL [Mass/Vol] 35 mg/dL Normal 29-71 [facility] Comment on above: Order Comment: Reaso n for Exam Essential (primary) hypertension Result Comment: HDL CHOL ATP-III CLASSIFICATION Cardiovascular Risk HDL > or equal to 60 mg/dL LOW HDL < 40 mg/dL HIGH Performed By: #### C BC, LIPID, TSH3 wRFLX, CMP #### [facility] [address] [place] [address] [facility] Cholesterol.total/Choles terol in HDL [Mass ratio] 4.0 {ratio} Normal <5.0 [facility] Comment on above: Order Comment: Reaso n for Exam Essential (primary) hypertension Performed By: #### C BC, LIPID, TSH3 wRFLX, CMP #### [facility] [address] [place] [id number] [place] LDL Cholesterol,Calculated 94 mg/dL Normal 0-100 [facility] Comment on above: Order Comment: Reaso n for Exam Essential (primary) hypertension Result Comment: LDL ATP III CLASSIFICATION LDL less than 100 mg/dL Optimal LDL 100-129 mg/dL Near or above optimal LDL 130-159 mg/dL Borderline high LDL 160-189 mg/dL High LDL greater than 189 mg/dL Very high Performed By: #### C BC, LIPID, TSH3 wRFLX, CMP #### [facility] [address] Triglyceride w/Reflex 53 mg/dL Normal 35-149 [facility] Comment on above: Order Comment: Reaso [...] C BC, LIPID, TSH3 wRFLX, CMP #### [facility] [address] VLDL CHOLESTEROL 10 mg/dL Normal [facility] Comment on above: Order Comment: Reaso n for Exam Essential (primary) hypertension Performed By: #### C BC, LIPID, TSH3 wRFLX, CMP #### [facility] [address] Lymphocytes Auto (Bld) [#/Vo l]Ordered By: Mary Lou Louie on 05-02-2022 Lymphocytes (Bld) [#/Vol] 2.1 10*3/uL 1.00-4.8 [facility] Lymphocytes/100 WBC Auto (Bl d)Ordered By: Mary Lou Louie on 05-02-2022 Lymphocytes/100 WBC (Bld) 19.6 % . [facility] MCH Auto (RBC) [Entitic mass ]Ordered By: Mary Lou Louie on 05-02-2022 MCH (RBC) [Entitic mass] 29.2 pg 27.5-35.2 [facility] MCHC Auto (RBC) [Mass/Vol]Or dered By: Mary Lou Louie on 05-02-2022 MCHC (RBC) [Mass/Vol] 32.9 g/dL 32.5-35.6 [facility] MCV Auto (RBC) [Entitic vol] Ordered By: Mary Lou Louie on 05-02-2022 MCV (RBC) [Entitic vol] 88.6 fL 83.5-101 [facility] Monocytes Auto (Bld) [#/Vol] Ordered By: Mary Lou Louie on 05-02-2022 Monocytes (Bld) [#/Vol] 0.8 10*3/uL 0.0-0.8 [facility] Monocytes/100 WBC Auto (Bld) Ordered By: Mary Lou Louie on 05-02-2022 Monocytes/100 WBC (Bld) 7.1 % . [facility] Neutrophils Auto (Bld) [#/Vo l]Ordered By: Mary Lou Louie on 05-02-2022 Neutrophils (Bld) [#/Vol] 7.7 10*3/uL 1.8-7.7 [facility] Neutrophils/100 WBC Auto (Bl d)Ordered By: Mary Lou Louie on 05-02-2022 Neutrophils/100 WBC (Bld) 71.9 % . [facility] No Panel InformationOrdered By: Mary Lou Louie on 05-02-2022 Estimated GFR () > 60 mL/Min [facility] Comment on above: GFR estimated refere nce range: According to KDOQI guidelines, <60 ml/min/1.73m2 is sufficient to diagnose a patient with chronic kidney disease. Pharmacy Creatinine Clearance (Chem N/A [facility] Nucleated erythrocytes [Pres ence] in Blood by Automated countOrdered By: Mary Lou Louie on 05-02-2022 Nucleated RBC Auto Ql (Bld) 0.1 /100{WBC} 0-0.5 [facility] Platelet mean volume Auto (B ld) [Entitic vol]Ordered By: Mary Lou Louie on 05-02-2022 Platelet mean volume (Bld) [Entitic vol] 9.3 fL 6.6-10.1 [facility] Platelets Auto (Bld) [#/Vol] Ordered By: Mary Lou Louie on 05-02-2022 Platelets (Bld) [#/Vol] 284 10*3/uL 150-450 [facility] Protein [Mass/volume] in Ser um or PlasmaOrdered By: Mary Lou Louie on 05-02-2022 Protein [Mass/Vol] 7.1 g/dL 6.1-7.9 [facility] RBC Auto (Bld) [#/Vol]Ordere d By: Mary Lou Louie on 05-02-2022 RBC (Bld) [#/Vol] 5.46 10*6/uL 3.90-5.60 [facility] Serum or plasma alanine balderas otransferase measurement without P-5'-P (enzymatic activiOrdered By: Mary Lou Louie on 05-02-2022 ALT No additional P-5'-P [Catalytic activity/Vol] 17 U/L 10-60 [facility] Serum or plasma albumin/glob ulin mass ratioOrdered By: Mary Lou Louie on 05-02-2022 Albumin/Globulin [Mass ratio] 0.9 {ratio} [facility] Serum or plasma alkaline jemal sphatase measurement (enzymatic activity/volume)Ordered By: Mary Lou Louie on 05-02-2022 ALP [Catalytic activity/Vol] 112 U/L 32-92 [facility] Serum or plasma anion gap de terminationOrdered By: Mary Lou Louie on 05-02-2022 Anion gap [Moles/Vol] 12.5 mmol/L 6.0-15.0 [facility] Serum or plasma aspartate am inotransferase measurement (enzymatic activity/volume)Ordered By: Mary Lou Louie on 05-02-2022 AST [Catalytic activity/Vol] 20 U/L 10-42 [facility] Serum or plasma calcium juliana urement (mass/volume)Ordered By: Mary Lou Louie on 05-02-2022 Calcium [Mass/Vol] 9.1 mg/dL 8.2-10.2 [facility] Serum or plasma chloride blanca surement (moles/volume)Ordered By: Mary Lou Louie on 05-02-2022 Chloride [Moles/Vol] 106 mmol/L 95-114 [facility] Serum or plasma glucose juliana urement (mass/volume)Ordered By: Mary Lou Louie on 05-02-2022 Glucose [Mass/Vol] 96 mg/dL 70-100 [facility] Comment on above: ADA recommended refe rence rangeRandom Glucose Reference Range is dependent on time and content of last meal. Glucose of more than 200 mg/dL in a nonstressed, ambulatory subject supports the diagnosis of Diabetes Mellitus. Serum or plasma high density lipoprotein (HDL) cholesterol measurementOrdered By: Mary Lou Louie on 05-02-2022 Cholesterol in HDL [Mass/Vol] 35 mg/dL 29-71 [facility] Comment on above: HDL CHOL ATP-III CLA SSIFICATION Cardiovascular RiskHDL > or equal to 60 mg/dL LOWHDL < 40 mg/dL HIGH Serum or plasma potassium me asurement (moles/volume)Ordered By: Mary Lou Louie on 05-02-2022 Potassium [Moles/Vol] 4.1 mmol/L 3.5-5.1 [facility] Serum or plasma sodium measu rement (moles/volume)Ordered By: Mary Lou Louie on 05-02-2022 Sodium [Moles/Vol] 137 mmol/L 136-146 [facility] Serum or plasma total biliru bin measurement (mass/volume)Ordered By: Mary Lou Louie on 05-02-2022 Bilirubin [Mass/Vol] 0.3 mg/dL 0.3-1.2 [facility] Serum or plasma total carbon dioxide measurement (moles/volume)Ordered By: Mary Lou Louie on 05-02-2022 CO2 [Moles/Vol] 22.6 mmol/L 22.0-30.0 [facility] Serum or plasma total choles terol/high density lipoprotein (HDL) cholesterol mass ratOrdered By: Mary Lou Louie on 05-02-2022 Cholesterol.total/Choles terol in HDL [Mass ratio] 4.0 {ratio} <5.0 [facility] Serum or plasma urea nitroge n measurement (mass/volume)Ordered By: Mary Lou Louie on 05-02-2022 Urea nitrogen [Mass/Vol] 16 mg/dL 9- [facility] TSH DL <= 0.005 mIU/L QnOrde red By: Mary Louashleigh Louie on 05-02-2022 TSH Qn 2.26 m[IU]/L 0.45-5.33 [facility] Thyroid Stim Hormone w/Rflxo n 05-02-2022 Thyroid Stim Hormone w/Rflx 2.26 u[iU]/mL Normal 0.45-5.33 [facility] Comment on above: Order Comment: Reaso n for Exam Essential (primary) hypertension Result Comment: PERF ORMED BY: [facility] [address] [place] [address] PATHOLOGIST SECTION SUPERVISOR CECE DUNHAM M.D. Performed By: #### C BC, LIPID, TSH3 wRFLX, CMP #### [address] Triglyceride [Mass/volume] i n Serum or PlasmaOrdered By: Mary Lou Louie on 05-02-2022 Triglyceride [Mass/Vol] 53 mg/dL 35-149 [facility] Comment on above: TRIG ATP III CLASSIF ICATIONTRIG less than 150 mg/dL NormalTRIG 150-199 mg/dL Borderline highTRIG 200-500 mg/dL High TRIG greater than 500 mg/dL Very highStandard traceable to the Center for Disease Conrtrol and Prevention (CDC) test method. WBC Auto (Bld) [#/Vol]Ordere d By: Mary Lou Louie on 05-02-2022 WBC (Bld) [#/Vol] 10.7 10*3/uL 4.1-10.5 [facility] Provider Letteron 05-08-2021 Provider Letter May 08, 2021 May 08, 2021 JACQUES ANTOINE [address] [place] [address] JACQUES ANTONIE 1980 Dear _ , You missed your [...] Sincerely, [facility] [address] [place] [address] Normal [facility] ED Note-Physicianon 02-18-20 ED Note-Physician [id number]:127 Normal [facility] Lab Reportson 02-17-2021 Lab Reports [id number]:127 Normal [facility] RAD - CT Reporton 02-17-2021 RAD - CT Report [id number]:127 Normal [facility] CBC AUTO DIFFon 02-03-2021 BASO # 0.1 103/ul Normal 0.0-0.1 [facility] Comment on above: Performed By: #### C BC #### [facility] [address] [place] [address] Dr. Thuan Enriquez Basophils/100 WBC (Bld) 0.5 % Normal 0.2-2.0 [facility] Comment on above: Performed By: #### C BC #### [facility] [address] [place] [address] Dr. Thuan Enriquez EO # 0.2 103/ul Normal 0.0-0.7 [facility] Comment on above: Performed By: #### C BC #### [facility] [address] [place] [address] Dr. Thuan Enriquez Eosinophils/100 WBC (Bld) 1.2 % Normal 0.9-7.0 [facility] Comment on above: Performed By: #### C BC #### [facility] [address] [place] [address] Dr. Thuan Enriquez Erythrocyte distribution width (RBC) [Ratio] 15.5 % Critically high 11.0-15.0 [facility] Comment on above: Performed By: #### C BC #### [facility] [address] [place] [address] Dr. Thuan Enriquez Hematocrit (Bld) [Volume fraction] 46.1 % Normal 42.0-54.0 [facility] Comment on above: Performed By: #### C BC #### [facility] [address] [place] [address] Dr. Thuan Enriquez Hemoglobin (Bld) [Mass/Vol] 15.3 g/dL Normal 14.0-18.0 [facility] Comment on above: Performed By: #### C BC #### [facility] [address] [place] [address] Dr. Thuan Enriquez IG # 0.10 10e3/ul Critically high 0.00-0.03 [facility] Comment on above: Performed By: #### C BC #### [facility] [address] [place] [address] Dr. Thuan Enriquez IG % 0.5 % Normal 0.0-0.5 [facility] Comment on above: Performed By: #### C BC #### [facility] [address] [place] [address] Dr. Thuan Enriquez LYMPH # 2.4 103/ul Normal 1.2-3.8 [facility] Comment on above: Performed By: #### C BC #### [facility] [address] [place] [address] Dr. Thuan Enriquez Lymphocytes/100 WBC (Bld) 18.7 % Critically low 20.5-60.0 [facility] Comment on above: Performed By: #### C BC #### [facility] [address] [place] [address] Dr. Thuan Enriquez MANUAL DIFF REQ NO Normal [facility] Comment on above: Performed By: #### C BC #### [facility] [address] [place] [address] Dr. Thuan Enriquez MCH (RBC) [Entitic mass] 29.5 pg Normal 25.9-34.0 [facility] Comment on above: Performed By: #### C BC #### [facility] [address] [place] [address] Dr. Thuan Enriquez MCHC (RBC) [Mass/Vol] 33.2 g/dL Normal 29.9-35.2 [facility] Comment on above: Performed By: #### C BC #### [facility] [address] [place] [address] Dr. Thuan Enriquez MCV (RBC) [Entitic vol] 89.0 fL Normal 80.0-94.0 [facility] Comment on above: Performed By: #### C BC #### [facility] [address] [place] [address] Dr. Thuan Enriquez MONO # 1.1 103/ul Critically high 0.3-0.8 [facility] Comment on above: Performed By: #### C BC #### [facility] [address] [place] [address] Dr. Thuan Enriquez Monocytes/100 WBC (Bld) 8.6 % Normal 1.7-12.0 [facility] Comment on above: Performed By: #### C BC #### [facility] [address] [place] [address] Dr. Thuan Enriquez NEUT # 9.1 103/ul Critically high 1.4-6.5 [facility] Comment on above: Performed By: #### C BC #### [facility] [address] [place] [address] Dr. Thuan Enriquez Neutrophils/100 WBC (Bld) 70.5 % Normal 43.0-75.0 [facility] Comment on above: Performed By: #### C BC #### [facility] [address] [place] [address] Dr. Thuan Enriquez Platelet mean volume (Bld) [Entitic vol] 10.7 fL Normal 9.5-13.5 [facility] Comment on above: Performed By: #### C BC #### [facility] [address] [place] [address] Dr. Thuan Enriquez PLT 332 103/ul Normal 150-450 [facility] Comment on above: Performed By: #### C BC #### [facility] [address] [place], [place] [address] Dr. Thuan Enriquez RBC 5.18 106/ul Normal 4.70-6.10 [facility] Comment on above: Performed By: #### C BC #### [facility] [address] [place], [place] [address] Dr. Thuan Enriquez WBC 12.8 103/ul Critically high 4.0-11.0 [facility] Comment on above: Performed By: #### C BC #### [facility] [address] [place], [place] [address] ABD/PELVIS WO CONon [...] GUILLERMO CHAMBERS Date: 2021-02-03 12:08 Normal [facility] URINE PROFILEon 1 Bilirubin Ql (U) Negative Normal NEGATIVE [facility] Comment on above: Performed By: #### Sury BLANC UMICRO #### [facility] [address] [place] [address] Dr. Thuan Enriquez Clarity (U) CLOUDY Abnormal CLEAR [facility] Comment on above: Performed By: #### Sury BLANC UMICRO #### [facility] [address] [place] [address] Dr. Thuan Enriquez Color (U) RED Abnormal YELLOW [facility] Comment on above: Performed By: #### Sury BLANC UMICRO #### [facility] [address] [place] [address] Dr. Thuan CHICAS A micrscopic examination will be performed if indicated. Normal [facility] Comment on above: Performed By: #### Sury BLANC UMICRO #### [facility] [address] [place] [address] Dr. Thuan Enriquez Glucose Ql (U) Negative Normal NEGATIVE [facility] Comment on above: Performed By: #### Sury BLANC UMICRO #### [facility] [address] [place] [address] Dr. Thuan Enriquez Hemoglobin Ql (U) LARGE Abnormal NEGATIVE [facility] Comment on above: Performed By: #### Sury BLANC UMICRO #### [facility] [address] [place] [address] Dr. Thuan Enriquez Ketones Ql (U) Negative Normal NEGATIVE [facility] Comment on above: Performed By: #### Sury BLANC UMICRO #### [facility] [address] [place] [address] Dr. Tuhan Enriquez LEUKOCYTES Negative Normal NEGATIVE [facility] Comment on above: Performed By: #### Sury BLANC UMICRO #### [facility] [address] [place] [address] Dr. Thuan Enriquez Nitrite Ql (U) Negative Normal NEGATIVE [facility] Comment on above: Performed By: #### Sury BLANC UMICRO #### [facility] [address] [place] [address] Dr. Thuan Enriquez pH (U) 6.0 [pH] Normal 5-9 [facility] Comment on above: Performed By: #### Sury BLANC, UMICRO #### [facility] [address] [place] [address] Dr. Thuan Enriquez Protein (U) [Mass/Vol] 30 mg/dL Abnormal NEGAT MONCHO/ TRACE [facility] Comment on above: Performed By: #### Sury BLANC, UMICRO #### [facility] [address] [place] [address] Dr. Thuan Enriquez SPEC GRAVITY >=1.030 Abnormal 1.005-<=1.02 5 [facility] Comment on above: Performed By: #### Sury BLANC, ICRO #### [facility] [address] [place] [address] Dr. Thuan Enriquez UR MICRO IND INDICATED Normal [facility] Comment on above: Performed By: #### Sury BLANC, ICRO #### [facility] [address] [place] [address] Dr. Thuan Enriquez Urobilinogen Qn (U) 1.0 {Leo'U}/dL Normal 0.2 - 1. 0 [facility] Comment on above: Performed By: #### Sury BLANC, ICRO #### [facility] [address] [place] [address] Dr. Thuan Enriquez PROF CHEM 8 (BAS METB)on Anion gap [Moles/Vol] 14.6 mmol/L Normal [facility] Comment on above: Performed By: #### B MP #### [facility] [address] [place] [address] Dr. Thuan Enriquez Calcium [Mass/Vol] 8.7 mg/dL Normal 8.4-10.2 [facility] Comment on above: Performed By: #### B MP #### [facility] [address] [place] [address] Dr. Thuan Enriquez Chloride [Moles/Vol] 103 mmol/L Normal 98-107 [facility] Comment on above: Performed By: #### B MP #### [facility] [address] [place] [address] [address] Thuan Enriquez CO2 [Moles/Vol] 22.8 mmol/L Normal 22.0-30.0 [facility] Comment on above: Performed By: #### B MP #### [facility] [address] [place] [address] [address] Thuan Enriquez Creatinine [Mass/Vol] 1.13 mg/dL Normal 0.66-1.25 [facility] Comment on above: Performed By: #### B MP #### [facility] [address] [place] [address] [address] Tuhan Enriquez EGFR-AF MAURITIAN >60 Normal >=60 [facility] Comment on above: Performed By: #### B MP #### [facility] [address] [place] [address] [address] Thuan Enriquez EGFR-NON AF MAURITIAN >60 Normal >=60 [facility] Comment on above: Performed By: #### B MP #### [facility] [address] [place] [address] [address] Thuan Enriquez Glucose [Mass/Vol] 120 mg/dL Critically high 74-106 [facility] Comment on above: Performed By: #### B MP #### [facility] [address] [place] [address] Dr. Thuan Enriquez Potassium [Moles/Vol] 3.4 mmol/L Normal 3.4-5.0 [facility] Comment on above: Performed By: #### B MP #### [facility] [address] [address] [address] Thuan Enriquez Sodium [Moles/Vol] 137 mmol/L Normal 137-145 [facility] Comment on above: Performed By: #### B MP #### [facility] [address] [place] [address] [address] Thuan Enriquez Urea nitrogen [Mass/Vol] 15.0 mg/dL Normal 9.0-20.0 [facility] Comment on above: Performed By: #### B MP #### [facility] [address] [place] [address] Dr. Thuan Enriquez Urea nitrogen/Creatinine [Mass ratio] 13.3 mg/mg Normal [facility] Comment on above: Performed By: #### B MP #### [facility] [address] [place] [address] Dr. Thuan Enriquez URINE MICROSCOPIC ONLYon BACTERIA TRACE Abnormal NONE SEEN [facility] Comment on above: Performed By: #### Sury BLANC UMICRO #### [facility] [address] [place] [address] Dr. Thuan Enriquez Bacteria identified Cx Nom (U) NOT INDICATED Normal [facility] Comment on above: Performed By: #### Sury BLANC UMICRO #### [facility] [address] [place] [address] Dr. Thuan Enriquez CAST NONE SEEN Normal NONE SEEN [facility] Comment on above: Performed By: #### Sury BLANC UMICRO #### [facility] [address] [place] [address] Dr. Thuan Enriquez Crystals LM Nom (Urine sed) NONE SEEN Normal NONE SEEN [facility] Comment on above: Performed By: #### Sury BLANC UMICRO #### [facility] [address] [place] [address] Dr. Thuan Enriquez Epithelial cells LM Ql (Urine sed) FEW Abnormal NONE SEEN /RARE [facility] Comment on above: Performed By: #### Sury BLANC UMICRO #### [facility] [address] [place] [address] Dr. Thuan Enriquez MUCOUS MODERATE Abnormal NONE SEEN [facility] Comment on above: Performed By: #### Sury BLANC UMICRO #### [facility] [address] [place] [address] Dr. Thuan Enriquez RBC (U) [#/Vol] /uL Abnormal 0-2 [facility] Comment on above: Performed By: #### Sury BLANC UMICRO #### [facility] [address] [place] [address] Dr. Thuan Enriquez WBC 2-5 Abnormal NONE SEEN [facility] Comment on above: Performed By: #### E RESHMA BLANC #### [facility] [id number] Thuan Enriquez Encounters Encounter Date Encounter Type Care Provider Facility Start: 02-11-2023 End: 02-12-2023 ambulatory Frankie Bright MD Facility:[facility] Start: 02-04-2023 End: 02-05-2023 ambulatory Frankie Bright MD Facility:[facility] Start: 05-02-2022 End: 05-02-2022 ambulatory Mary Lou Louie Facility:[facility] Start: 05-02-2022 End: 05-02-2022 ambulatory Services [facility] Work Phone: [facility] Work Phone: Start: 05-02-2022 End: 05-02-2022 Departed Referred Services [facility] Work Phone: [facility] Start: 01-09-2022 End: 01-10-[address] CRYSTAL STEINER Facility:[facility] Start: 01-02-[address] DOCTOR VICENTE Facility :[facility] Start: 02-03-2021 End: 02-03-2021 ambulatory FEDERICA EARLY Facility: Payers Date Payer Category Payer Private Health Insurance 1980 Unknown [id number] .16.84 [id number] 1980 Unknown [id number] .16.84 [id number] 1980 Unknown [id number] .16.84 [id number] 1980 Unknown [id number] .[id number]. [id number] 1980 Unknown [id number] .16. [id number] 1959 Self-pay 1959 Unknown [id number] Unknown [id number] Social History Date Type Detail Facility Tobacco smoking stat [facility] Unknown if ever smoked [facility] Work Phone: Start: 1980 Sex Assigned At Male F [facility] Consultation note 01-09-2022 Note Date & Type Note Facility 01-09-2022 Note CONSULTATION CONSULTATION DATE: 01/09/2022 CHIEF COMPLAINT: Low back pain, bilateral lower extremity pain. HISTORY OF PRESENT ILLNESS: This is a 41-year-old gentleman, who was referred to us from [facility]. The patient states he stepped out of [...] therapy treatments a few years ago in [place]. The patient's PAST MEDICAL HISTORY / SURGICAL [...] that Mary Lou Louie, nurse practitioner at [facility] has ordered an x-ray of his lumbar spine which is scheduled here at [facility]. Subsequent to reviewing the x-ray, we will determine whether the patient would benefit from an MRI prior to being seen and interventional treatment started. The patient has significant pain behavior. One again, the ER consult was offered to the patient. CC: Mary Lou Louie, HEBER [facility] Evaluation note Note Date & Type Note Facility Evaluation note No assessment information availa [facility] Work Phone: Summary Purpose Family History [...] section and content) DATE CREATED AUTHOR 07/07/2021 [facility] DATE CREATED AUTHOR AUTHOR'S ORGANIZ ATION 01/14/2022 [facility] DATE CREATED AUTHOR AUTHOR'S ORGANIZ ATION 05/08/2022 [facility] DATE CREATED AUTHOR AUTHOR'S ORGANIZ ATION 02/17/2023 [facility] Care Teams (unrecognized sec tion and content) Team Status: Inactive Member Role Status Dates Services [facility] Primary Care Provider Active Mary Lou Louie APRN PARTITION NOTCHER-C Attending Provider Lamont montoya Team Status: Active Member Role Status Dates Services [facility] Primary Care Provider Active Goals [...] BE BASED ON THE PRIMARY CLINICAL RECORDS. [facility]. provides no warranty or guarantee of the accuracy or completeness of information in this document.
--- NOTE | 2023-09-13 22:39 | ED_ITS ---
HPI - Male Genitourinary General Chief complaint: Urogenital-Male Stated complaint: Urine Blood Time Seen by Provider: 09/13/23 22:21 Source: patient Mode of arrival: Wheelchair Limitations: no limitations History of Present Illness HPI Narrative: 43-year-old male presents for what he believes was blood in his urine. It happened just before coming into the emergency department. He has had some frequency and has a history of UTI. She has had no flank pain and has no history of kidney stone. He complains of some pain in the suprapubic region. Related Data Home Medications ?Medication ?Instructions ?Recorded ?Confirmed amlodipine 10 mg tablet 10 mg PO .hs 02/04/23 09/06/23 fluticasone 500 mcg-salmeterol 50 1 inh inhalation BID 02/04/23 09/13/23 mcg/dose blistr powdr for inhalation (Advair Diskus) losartan 100 mg tablet 100 mg PO DAILY 02/04/23 09/13/23 topiramate 50 mg capsule,extended 50 mg PO DAILY 02/04/23 02/04/23 release 24 hr Previous Rx's ?Medication ?Instructions ?Recorded amlodipine 10 mg tablet 10 mg PO DAILY #10 tabs 09/06/23 amoxicillin 500 mg capsule 500 mg PO TID 10 days #30 caps 09/06/23 valsartan 320 1 tab PO DAILY #10 tabs 09/06/23 mg-hydrochlorothiazide 25 mg tablet cephalexin 500 mg capsule 500 mg PO TID 7 days #21 caps 09/13/23 phenazopyridine 200 mg tablet 200 mg PO Q8H PRN pain #15 tabs 09/13/23 (Pyridium) Allergies Allergy/AdvReac Type Severity Reaction Status Date / Time No Known Drug Allergies Allergy Verified 09/13/23 22:27 Exam Constitutional Vital Signs, click to edit/add: Last Vital Signs Temp 98.1 F 09/13/23 22:23 Pulse 109 H 09/13/23 22:23 Resp 22 H 09/13/23 22:23 BP 159/101 H 09/13/23 22:23 Pulse Ox 93 L 09/13/23 22:23 O2 Del Method Room Air 09/13/23 22:23 Course Vital Signs Vital signs: Vital Signs Temperature 98.1 F 09/13/23 22:23 Pulse Rate 109 H 09/13/23 22:23 Respiratory Rate 22 H 09/13/23 22:23 Blood Pressure 159/101 H 09/13/23 22:23 Pulse Oximetry 93 L 09/13/23 22:23 Oxygen Delivery Method Room Air 09/13/23 22:23 Temperature 98.1 F 09/13/23 22:23 Pulse Rate 109 H 09/13/23 22:23 Respiratory Rate 22 H 09/13/23 22:23 Blood Pressure 159/101 H 09/13/23 22:23 Pulse Oximetry 93 L 09/13/23 22:23 Oxygen Delivery Method Room Air 09/13/23 22:23 MDM - Male Genitourinary MDM Narrative Medical decision making narrative: UTI is identified. I have no clinical suspicion of pyelonephritis or kidney stone. Urine culture is ordered and he was given Keflex here and prescribed Keflex. Treatment diagnosis and follow-up were discussed with the patient. Differential Diagnosis Differential diagnosis: Likely urinary tract infection, acute retention of urine and other (Kidney stone, pyelonephritis) Lab Data Attestation: I reviewed the patient's lab results. Labs: Lab Results 09/13/23 Range/Units 23:05 Urine Color Dk. red (YELLOW) Urine Clarity Cloudy A (CLEAR) Urine pH Color interference A (5.0-9.0) Ur Specific [place] 1.020 (1.005-1.025) Urine Protein Color interference A (NEG/TRACE) mg/dL Urine Glucose (UA) Color interference A (NEGATIVE) mg/dL Urine Ketones Color interference A (NEGATIVE) mg/dL Urine Occult Blood Color interference A (NEGATIVE) Urine Nitrite Color interference A (NEGATIVE) Urine Bilirubin Color interference A (NEGATIVE) Urine Urobilinogen Color interference A (0.2-1.0) EU/dL Ur Leukocyte Esterase Color interference A (NEGATIVE) Urine RBC >100 A (0-2) #/HPF Urine WBC 20-50 A (NONE SEEN) #/HPF Ur Squamous Epith Cells None seen (NONE/RARE) #/LPF Urine Crystals None seen (None Seen) #/HPF Urine Bacteria None seen (NONE SEEN) #/HPF Urine Casts None seen (NONE SEEN) #/LPF Urine Mucus Small A (NONE SEEN) Ur Culture Indicated? Yes Discharge Plan Discharge Stand Alone Forms: Portal Instructions Chief Complaint: Urogenital-Male Clinical Impression: Urinary tract infection Patient Disposition: Home, Self-Care Time of Disposition Decision: 23:55 Condition: Good Mode of Transportation: Private Vehicle Prescriptions / Home Meds: New cephalexin 500 mg capsule 500 mg PO TID 7 Days Qty: 21 0RF phenazopyridine [Pyridium] 200 mg tablet 200 mg PO Q8H PRN (Reason: pain) Qty: 15 0RF No Action fluticasone propion-salmeterol [Advair Diskus] 500-50 mcg/dose blister with device 1 inh inhalation BID losartan 100 mg tablet 100 mg PO DAILY topiramate 50 mg capsule,extended release 24hr 50 mg PO DAILY amlodipine 10 mg tablet 10 mg PO .hs amlodipine 10 mg tablet 10 mg PO DAILY Qty: 10 0RF valsartan-hydrochlorothiazide 320-25 mg tablet 1 tab PO DAILY Qty: 10 0RF amoxicillin 500 mg capsule 500 mg PO TID 10 Days Qty: 30 0RF Print Language: Sudanese Instructions: Urinary Tract Infection in Men (ED) Referrals: Physician,Non-Staff, MD [Primary Care Provider] - 1 week
[2023-09-13 23:21] LABS: Color Urine DK. RED (YELLOW)
[2023-09-13 23:24] LABS: Clarity Urine CLOUDY (CLEAR)
[2023-09-13 23:25] LABS: Bilirubin Urine COLOR INTERFERENCE (NEGATIVE); Blood Urine COLOR INTERFERENCE (NEGATIVE); Glucose Urine UA COLOR INTERFERENCE mg/dL (NEGATIVE); Ketones Urine COLOR INTERFERENCE mg/dL (NEGATIVE); Leukocyte Esterase Urine COLOR INTERFERENCE (NEGATIVE); Nitrite Urine COLOR INTERFERENCE (NEGATIVE); Protein Urine COLOR INTERFERENCE mg/dL (NEG/TRACE); Urobilinogen Urine COLOR INTERFERENCE EU/dL (0.2-1.0); pH Urine COLOR INTERFERENCE (5.0-9.0)
[2023-09-13 23:26] LABS: Bacteria Urine NONE SEEN #/HPF (NONE SEEN); Mucus Urine SMALL (NONE SEEN); RBC Urine >100 #/HPF (0-2); Squamous Epithelial Cell Urine NONE SEEN #/LPF (NONE/RARE); WBC Urine 20-50 #/HPF (NONE SEEN)
[2023-09-13 23:27] LABS: Cast Seen? NONE SEEN #/LPF (NONE SEEN); Crystals Seen? None Seen #/HPF (None Seen); Urine Culture Indicated YES
[2023-09-14] MEDS: PHENAZOPYRIDINE 100 MG TABLET PO (00:03)
[2023-09-14] MEDS: CEPHALEXIN 500 MG CAPSULE PO (00:04)
== END 2023-09-14 00:14 | disposition home or self-care (01) ==
PROVIDERS: Emergency Provider Emergency Medicine
DX: N39.0 Urinary tract infection, site not specified (principal); Z87.440 Personal history of urinary (tract) infections
CPT/HCPCS: 81001; 87086; 87150; 87186; 99283

== ENCOUNTER 2023-09-26 14:40 | Outpatient (OUT) | payer OTHER, SELFPAY ==
--- NOTE | 2023-09-26 15:12 | P.CN_ITS ---
Consult Note: HPI Data of Consult Patient: known to practice within the last 3 years Requesting Physician: Kim Willis NP Primary Care Provider: Non-Staff Physician, MD Consult Narrative Reason for consult: f/u Narrative: Jacques Galvez a pleasant 42 year old male presents for evaluation and management of low back pain. Today rating pain 9/10 today in low back and right leg. Patient has failed to benefit from greater than 6 weeks of PT, has noticed increase of pain with PT. Pain sharp shooting throbbing into right leg and foot. Patient re ports numbness tingling weakness of RLE. Patient failed to benefit from tylenol, cannot take NSAIDs due to GERD and HTN, stopped lyrica as it was not beneficial and he thinks it was increasing his BP. Patient has failed to benefit from tizanidine, baclofen, and flexeril in the past. cc:: CC: Kim Willis NP Review of Systems ROS Status of ROS 10 or more systems reviewed and unremark able except as noted in history and below Musculoskeletal Reports: back pain, neck pain and extremity pain Meds Home Medications and Allergies Home Medications ?Medication ?Instructions ?Recorded ?Confirmed ?Type amlodipine 10 mg tablet 10 mg PO .hs 02/04/23 09/06/23 History fluticasone 500 mcg-salmeterol 50 1 inh inhalation BID 02/04/23 09/13/23 History mcg/dose blistr powdr for inhalation (Advair Diskus) losartan 100 mg tablet 100 mg PO DAILY 02/04/23 09/13/23 History topiramate 50 mg capsule,extended 50 mg PO DAILY 02/04/23 02/04/23 History release 24 hr amlodipine 10 mg tablet 10 mg PO DAILY #10 tabs 09/06/23 09/13/23 Rx amoxicillin 500 mg capsule 500 mg PO TID 10 days #30 caps 09/06/23 09/13/23 Rx valsartan 320 1 tab PO DAILY #10 tabs 09/06/23 09/13/23 Rx mg-hydrochlorothiazide 25 mg tablet cephalexin 500 mg capsule 500 mg PO TID 7 days #21 caps 09/13/23 Rx phenazopyridine 200 mg tablet 200 mg PO Q8H PRN pain #15 tabs 09/13/23 Rx (Pyridium) Allergies Allergy/AdvReac Type Severity Reaction Status Date / Time No Known Drug Allergies Allergy Verified 09/13/23 22:27 Exam Constitutional Documenting provider has reviewed patient's vital signs: yes Common normals: no apparent distress, oriented x3, healthy appearing, alert and well nourished General appearance: cooperative and disheveled Nutritional appearance: obese HENMT Common normals: normocephalic, hearing grossly normal bilaterally and moist oral mucous membranes Head and scalp: normocephalic Eye Common normals: PERRL Pupil: PERRL Neck & C-Spine Common normals: full ROM General: normal visual inspection Chest Common normals: inspection of chest normal Respiratory Common normals: normal respiratory effort, no retractions and no use of accessory muscles Back & Pelvis Lumbar spine/lower back: normal to inspection, ROM limited, pain with ROM and straight leg raise positive right Other: decreased sensation to RLE following right L4,5,S1 pattern positive right straight leg raise BLE strength 3.5/5 Extremity Common normals: normal to inspection Neuro Common normals: oriented x3, CN's II-XII intact bilaterally, moves all extremities, no focal motor deficits, no sensory deficits noted and deep tendon reflexes 2+ bilaterally Sensorium/orientation: alert Gait (neuro): antalgic Motor exam: no movement abnormalities noted and strength abnormal Psych Common normals: mental status grossly normal, thought process normal, cooperative, affect normal, speech normal and activity/motor behavior normal Speech: normal speech Thought process: normal thought process Results Additional Findings Additional findings: If on a controlled substance or opioids, I have checked an [place] report on this patient and there are no aberrancies noted in the prescribing history.??If on a controlled substance or opioid a drug screen was completed and reviewed within the last year, and if there has not been a drug screen completed we ordered one today to monitor higher risk, state monitored pain medication use. As part of providing excellent, safe, comprehensive care, the following was completed at our patient's visit: 1. A medication reconciliation and review to ensure accurate knowledge of current/active medications, including asking our patients to inform us about any [id number] medications or herbal remedies/nutritional supplements/alternative remedies. 2. A review to specifically ensure our patients have had annual screening for screening for depression, screening for tobacco use, and screening for unhealthy alcohol use. For concerning screenings had a discussion with the patient, provided patient education, and recommended follow-up with primary care provider when appropriate. If patient noted with a risk of falling, they received education on strength, gait, and balance training to prevent future risk of falling. Assessment and Plan Assessment and Plan (1) Lumbar radiculopathy: (2) Myofascial pain: (3) Lumbar spondylosis: Plan update lumbar MRI without contrast start methocarbamol 500-1000mg BID PRN myofascial pain/spasms f/u after lumbar MRI, likely right L4-5 L5-S1 stenosis
== END 2023-09-26 14:41 | disposition home or self-care (01) ==
PROVIDERS: Visit Provider Nurse Practitioner
DX: M54.16 Radiculopathy, lumbar region (principal); M79.18 Myalgia, other site; M47.816 Spondylosis without myelopathy or radiculopathy, lumbar region
CPT/HCPCS: G0463

== ENCOUNTER 2023-10-03 21:36 | Inpatient (IN) | payer OTHER, SELFPAY ==
[2023-10-03] VITALS (15 sets, daily range): BP systolic 169; BP diastolic 94; PULSE 100–124; TEMP 37.5; O2SAT 89–96; BMI 63.1
--- NOTE | 2023-10-03 20:30 | ECG_ITS ---
[facility] Test Date: 2023-10-03 Pat Name: SALVADOR ANTOINE Department: Room: Gender: Male [employer]: : [id number] Requested By: [id number] Order Number: [id number] Reading MD: JENNIFER MEEHAN Measurements Intervals [place] Rate: 115 P: 61 TX: 140 QRS: 63 QRSD: 104 T: 48 QT: 338 QTc: 406 Interpretive Statements 1120 Sinus tachycardia 2440 Incomplete right bundle branch block [address] depression 9140 abnormal rhythm ECG Electronically Signed On 10-04-2023 6:51:34 EDT by JENNIFER MEEHAN
--- OUTSIDE RECORDS SUMMARY | 2023-10-03 21:41 | XMS_ITS | CCD ---
Author Organization [facility] Care Team Providers Care Microbiology Analyst Name Role Phone FEDERICA EARLY Attending Unavailable CINTHIA, DR DUARTE Primary Care Unavailable FEDERICA EARLY Admitting Unavailable ZIEBGOLD, DR GUILLERMO Huang Consulting Unavailable FEDERICA EARLY Consulting Unavailable JATIN, DR CRYSTAL Ramirez Admitting Unavailable [facility] Primary Care Unavaila ble STEINER, DR CRYSTAL Ramirez Attending Unavailable JATIN, DR CRYSTAL Ramirez Consulting Unavailable CINTHIA, DR DUARTE Attending Unavailable [facility] Primary Care Unavaila ble MISC, DR DUARTE Admitting Unavailable [facility] Primary Care Provider GAGE Louie Attending Provider Kaila MASON, Frankie Casas Attending Unavailable Kaila MASON, Frankie Casas Attending Unavailable GAGE Louie Attending Provider Mary Lou Louie Admitting Unavailab Mary Lou Shetty Attending Unavailab [facility] Unavail[place] ble Medications Current Medications Medication Drug Class(es) Dates Sig (Normalized) Sig (Original) [id number] 200 actuat albuterol 0.09 mg/actuat metered dose inhaler (2 sources) beta2-Adrenergic Agonist Start: 04-01-2018 Albuterol Sulfate (Ventolin Hfa) 90 mcg/actuation Hfa Aerosol Inhaler Active 1 PUFF INHALATION As Directed April 01, 2018 1:00am amLODIPine 10 mg oral tablet (2 sources) Dihydropyridine Calcium Channel Lis Start: 04-01-2018 take 1 tablet by mouth once daily Amlodipine Active 1 TAB PO Daily April 01, 2018 1:00am 1 ml enoxaparin sodium 150 mg/ml prefilled syringe (2 sources) Low Molecular Weight Heparin Start: 04-09-2018 inject 1 dose by subcutaneous injection twice daily Enoxaparin Active 1 DOSE SUBCUT Twice daily April 09, 2018 1:00am 30 actuat fluticasone furoate 0.1 mg/actuat dry powder inhaler (2 sources) Corticosteroid Start: 04-01-2018 Fluticasone Furoate (Arnuity Ellipta) 100 mcg/actuation blister with device Active 1 PUFF INHALATION As Directed April 01, 2018 1:00am hydrOXYzine hydrochloride 25 mg oral tablet (2 sources) Antihistamine Start: 04-01-2018 take 25 mg by mouth four times daily Hydroxyzine Hcl Active 25 MG PO Four times daily April 01, 2018 1:00am 24 hr lamoTRIgine 25 mg extended release oral tablet (2 sources) Mood Stabilizer, Anti-epileptic Agent Start: 04-01-2018 take 25 mg by mouth once daily Lamotrigine Active 25 MG PO Daily April 01, 2018 1:00am LORazepam 1 mg oral tablet (2 sources) Benzodiazepine Start: 08-13-2018 take 1 tablet by mouth once daily Lorazepam Active 1 TAB PO Daily August 13, 2018 12:00am raNITIdine 75 mg oral tablet (4 sources) Histamine-2 Receptor Antagonist Start: 04-01-2018 take 1 tablet by mouth twice daily Ranitidine Hcl (Zantac 75) 75 mg Tablet Active 1 TAB PO Twice daily April 01, 2018 1:00am Start: 04-01-2018 End: 04-09-2018 take 150 mg by mouth once daily Ranitidine Hcl Discontinued 150 MG PO Daily April 01, 2018 1:00am April 09, 2018 8:58am Start: 04-01-2018 End: 04-09-2018 take 150 mg by mouth once daily Ranitidine Hcl Discontinued 150 MG PO Daily April 01, 2018 12:00am April 09, 2018 7:58am warfarin sodium 4 mg oral tablet (2 sources) Vitamin K Antagonist Start: 04-01-2018 Warfarin Active 1 TAB PO As Directed April 01, 2018 1:00am Completed/Discontinued Medications Medication Drug Class(es) Dates Sig (Normalized) Sig (Original) amitriptyline hydrochloride 25 mg oral tablet (2 sources) Tricyclic Antidepressant Start: 04-01-2018 End: 04-09-2018 take 25 mg by mouth once daily Amitriptyline Discontinued 25 MG PO Daily April 01, 2018 1:00am April 09, 2018 8:59am tiZANidine 2 mg oral capsule (2 sources) Central alpha-2 Adrenergic Agonist Start: 04-01-2018 End: 04-09-2018 take 1 capsule by mouth three times daily Tizanidine (Zanaflex) 2 mg Capsule Discontinued 2 MG PO Three times daily April 01, 2018 1:00am April 09, 2018 9:00am Problems Active Problems Problem Classification Problem Date Documented Da te Episodic/Chronic Essential hypertension (1 source) Essential (primary) hypertension; Translations: [Essential (primary) hypertension] Onset: 09-16-2023 Chronic Other connective tissue disease (1 source) [...] Test Name Value Interpretation Reference Range Facility Alanine aminotransferase [En zymatic activity/volume] in Serum or PlasmaOrdered By: Mary Lou Louie on 09-16-2023 ALT [Catalytic activity/Vol] 26 U/L Normal 7-52 [facility] Comment on above: Order Comment: Reaso n for Exam Essential (primary) hypertension Performed By: #### L IPID, CMP, TSH3 wRFLX, CBC #### [address] Albumin [Mass/volume] in Ser um or Plasma by Bromocresol green (BCG) dye binding methoOrdered By: Mary Lou Louie on 09-16-2023 Albumin BCG dye [Mass/Vol] 3.8 g/dL 3.5-5.7 [facility] Alkaline phosphatase [Enzyma tic activity/volume] in Serum or PlasmaOrdered By: Mary Louashleigh Louie on 09-16-2023 ALP [Catalytic activity/Vol] 99 U/L Normal 34-104 [facility] Comment on above: Order Comment: Reaso n for Exam Essential (primary) hypertension Performed By: #### L IPID, CMP, TSH3 wRFLX, CBC #### [facility] [address] [place] [address] Aspartate aminotransferase [ Enzymatic activity/volume] in Serum or PlasmaOrdered By: Mary Lou Louie on 09-16-2023 AST [Catalytic activity/Vol] 35 U/L Normal 13-39 [facility] Comment on above: Order Comment: Reaso n for Exam Essential (primary) hypertension Performed By: #### L IPID, CMP, TSH3 wRFLX, CBC #### [address] Automated basophil %Ordered By: Mary Lou Louie on 09-16-2023 Basophils/100 WBC (Bld) 0.7 % Normal . [facility] Comment on above: Order Comment: Reaso n for Exam Essential (primary) hypertension Performed By: #### L IPID, CMP, TSH3 wRFLX, CBC #### [facility] [address] [place] [address] Automated basophil countOrde red By: Mary Lou Louie on 09-16-2023 Basophils (Bld) [#/Vol] 0.1 10*3/uL Normal 0.0-0.2 [facility] Comment on above: Order Comment: Reaso n for Exam Essential (primary) hypertension Result Comment: PERF ORMED BY: [place] [address] PATHOLOGIST DIRECTOR [employer] CECE DUNHAM M.D. Performed By: #### L IPID, CMP, TSH3 wRFLX, CBC #### [facility] [address] [place] [address] Automated blood monocyte cou ntOrdered By: Mary Lou Louie on 09-16-2023 Monocytes (Bld) [#/Vol] 1.2 10*3/uL High 0.0-0.8 [facility] Comment on above: Order Comment: Reaso n for Exam Essential (primary) hypertension Performed By: #### L IPID, CMP, TSH3 wRFLX, CBC #### [facility] [address] Automated eosinophil %Ordere d By: Mary Lou Louie on 09-16-2023 Eosinophils/100 WBC (Bld) 1.0 % Normal . [facility] Comment on above: Order Comment: Reaso n for Exam Essential (primary) hypertension Performed By: #### L IPID, CMP, TSH3 wRFLX, CBC #### [facility] [address] [place] [address] Automated eosinophil countOr dered By: Mary Lou Louie on 09-16-2023 Eosinophils (Bld) [#/Vol] 0.1 10*3/uL Normal 0.0-0.45 [facility] Comment on above: Order Comment: Reaso n for Exam Essential (primary) hypertension Performed By: #### L IPID, CMP, TSH3 wRFLX, CBC #### [facility] [address] Automated monocyte %Ordered By: Mary Lou Louie on 09-16-2023 Monocytes/100 WBC (Bld) 7.6 % Normal . [facility] Comment on above: Order Comment: Reaso n for Exam Essential (primary) hypertension Performed By: #### L IPID, CMP, TSH3 wRFLX, CBC #### [facility] [address] [place] [address] [place] Automated neutrophil %Ordere d By: Mary Lou Louie on 09-16-2023 Neutrophils/100 WBC (Bld) 71.8 % Normal . [facility] Comment on above: Order Comment: Reaso n for Exam Essential (primary) hypertension Performed By: #### L IPID, CMP, TSH3 wRFLX, CBC #### [facility] [address] [place] [address] [place] Bilirubin.total [Mass/volume ] in Serum or PlasmaOrdered By: Mary Lou Louie on 09-16-2023 Bilirubin [Mass/Vol] 0.7 mg/dL Normal 0.3-1.0 [facility] Comment on above: Order Comment: Reaso n for Exam Essential (primary) hypertension Performed By: #### L IPID, CMP, TSH3 wRFLX, CBC #### [facility] [address] [place] [id number] [place] Calcium [Mass/volume] in Ser um or PlasmaOrdered By: Mary Lou Louie on 09-16-2023 Calcium [Mass/Vol] 9.4 mg/dL Normal 8.6-10.3 [facility] Comment on above: Order Comment: Reaso n for Exam Essential (primary) hypertension Performed By: #### L IPID, CMP, TSH3 wRFLX, CBC #### [facility] [address] [place] [id number] [facility] Carbon dioxide, total [Moles /volume] in Serum or PlasmaOrdered By: Mary Lou Louie on 09-16-2023 CO2 [Moles/Vol] 22.8 mmol/L Normal 21.0-31.0 [facility] Comment on above: Order Comment: Reaso n for Exam Essential (primary) hypertension Performed By: #### L IPID, CMP, TSH3 wRFLX, CBC #### [facility] [address] [place] [id number] [place] Chloride [Moles/volume] in S da or PlasmaOrdered By: Mary Lou Louie on 09-16-2023 Chloride [Moles/Vol] 101 mmol/L Normal 98-107 [facility] Comment on above: Lipemia is present a t a level that could interfere with the result.Hemolysis is present at a level that could interfere with the result. Order Comment: Reaso n for Exam Essential (primary) hypertension Result Comment: Rekha poppy is present at a level that could interfere with the result. Hemolysis is present at a level that could interfere with the result. Performed By: #### L IPID, CMP, TSH3 wRFLX, CBC #### [facility] [address] Cholesterol [Mass/volume] in Serum or PlasmaOrdered By: Mary Lou Louie on 09-16-2023 Cholesterol [Mass/Vol] 123 mg/dL Low 140-200 [facility] Comment on above: Chol less than 200 m g/dl low riskChol 201-239 mg/dl borderline riskChol 240 mg/dl and greater high risk Order Comment: Reaso n for Exam Essential (primary) hypertension Result Comment: Chol less than 200 mg/dl low risk Chol 201-239 mg/dl borderline risk Chol 240 mg/dl and greater high risk Performed By: #### L IPID, CMP, TSH3 wRFLX, CBC #### [facility] [address] [place] [address] [place] Cholesterol in LDL Calc [Mas s/Vol]Ordered By: Mary Lou Louie on 09-16-2023 Cholesterol in LDL [Mass/Vol] 68 mg/dL 0-100 [facility] Comment on above: LDL ATP III CLASSIFI CATIONLDL less than 100 mg/dL OptimalLDL 100-129 mg/dL Near or above optimalLDL 130-159 mg/dL Borderline highLDL 160-189 mg/dL HighLDL greater than 189 mg/dL Very high Cholesterol in VLDL Calc [Ma ss/Vol]Ordered By: Mary Lou Louie on 09-16-2023 Cholesterol in VLDL [Mass/Vol] 16 mg/dL [facility] Complete Blood Count Auto Di ffon 09-16-2023 Mean Corpuscular HGB Conc 33.6 g/dL Normal 32.5-35.6 [facility] Comment on above: Order Comment: Reaso n for Exam Essential (primary) hypertension Performed By: #### L IPID, CMP, TSH3 wRFLX, CBC #### [facility] [address] [place] [address] [place] NRBC% 0.1 /100{WBC} Normal 0-0.5 [facility] Comment on above: Order Comment: Reaso n for Exam Essential (primary) hypertension Performed By: #### L IPID, CMP, TSH3 wRFLX, CBC #### [facility] [address] Comprehensive Metabolic Pane rosemarie 09-16-2023 Albumin [Mass/Vol] 3.8 g/dL Normal 3.5-5.7 [facility] Comment on above: Order Comment: Reaso n for Exam Essential (primary) hypertension Performed By: #### L IPID, CMP, TSH3 wRFLX, CBC #### [facility] [address] [place] [address] [place] GFR/1.73 sq M.predicted MDRD (S/P/Bld) [Vol rate/Area] mL/min/{1.73_m2} Normal [facility] Comment on above: Order Comment: Reaso n for Exam Essential (primary) hypertension Performed By: #### L IPID, CMP, TSH3 wRFLX, CBC #### [facility] [address] [place] [address] Creatinine [Mass/volume] in Serum or PlasmaOrdered By: Mary Lou Louie on 09-16-2023 Creatinine [Mass/Vol] 1.10 mg/dL Normal 0.70-1.30 [facility] Comment on above: Order Comment: Reaso n for Exam Essential (primary) hypertension Performed By: #### L IPID, CMP, TSH3 wRFLX, CBC #### [facility] [address] [place] [address] Erythrocyte distribution wid th [Ratio] by Automated countOrdered By: Mary Lou Louie on 09-16-2023 Erythrocyte distribution width (RBC) [Ratio] 15.2 % High 12.0-14.8 [facility] Comment on above: Order Comment: Reaso n for Exam Essential (primary) hypertension Performed By: #### L IPID, CMP, TSH3 wRFLX, CBC #### [facility] [address] [place] [address] [place] Erythrocytes [#/volume] in B lood by Automated countOrdered By: Mary Lou Louie on 09-16-2023 RBC (Bld) [#/Vol] 5.27 10*6/uL Normal 3.90-5.60 [facility] Comment on above: Order Comment: Reaso n for Exam Essential (primary) hypertension Performed By: #### L IPID, CMP, TSH3 wRFLX, CBC #### [facility] [address] [place] [address] [place] Glucose [Mass/volume] in Ser um or PlasmaOrdered By: Mary Lou Louie on 09-16-2023 Glucose [Mass/Vol] 97 mg/dL Normal 70-100 [facility] Comment on above: ADA recommended refe rence rangeRandom Glucose Reference Range is dependent on time and content of last meal. Glucose of more than 200 mg/dL in a nonstressed, ambulatory subject supports the diagnosis of Diabetes Mellitus. Order Comment: Reaso n for Exam Essential (primary) hypertension Result Comment: [place] om Glucose Reference Range is dependent on time and content of last meal. Glucose of more than 200 mg/dL in a nonstressed, ambulatory subject supports the diagnosis of Diabetes Mellitus. ADA recommended reference range Performed By: #### L IPID, CMP, TSH3 wRFLX, CBC #### [facility] [address] [place] [address] [place] Hematocrit [Volume Fraction] of Blood by Automated countOrdered By: Mary Lou Louie on 09-16-2023 Hematocrit (Bld) [Volume fraction] 47.2 % Normal 38.8-50.0 [facility] Comment on above: Order Comment: Reaso n for Exam Essential (primary) hypertension Performed By: #### L IPID, CMP, TSH3 wRFLX, CBC #### [facility] [address] [place] [id number] [place] Hemoglobin [Mass/volume] in BloodOrdered By: Mary Lou Louie on 09-16-2023 Hemoglobin (Bld) [Mass/Vol] 15.9 g/dL Normal 13.0-17.0 [facility] Comment on above: Order Comment: Reaso n for Exam Essential (primary) hypertension Performed By: #### L IPID, CMP, TSH3 wRFLX, CBC #### [facility] [address] [place] [id number] [place] Leukocytes [#/volume] correc vinicio for nucleated erythrocytes in Blood by Automated counOrdered By: Mary Lou Louie on 09-16-2023 WBC corrected for nucl RBC Auto (Bld) [#/Vol] 15.2 10*3/uL 4.1-10.5 [facility] Leukocytes [#/volume] in Blo od by Automated countOrdered By: Mary Lou Louie on 09-16-2023 WBC (Bld) [#/Vol] 15.2 10*3/uL High 4.1-10.5 [facility] Comment on above: Order Comment: Reaso n for Exam Essential (primary) hypertension Performed By: #### L IPID, CMP, TSH3 wRFLX, CBC #### [facility] [address] Lipid Panelon 09-16-2023 LDL Cholesterol,Calculated 68 mg/dL Normal 0-100 [facility] Comment on above: Order Comment: Reaso n for Exam Essential (primary) hypertension Result Comment: LDL ATP III CLASSIFICATION LDL less than 100 mg/dL Optimal LDL 100-129 mg/dL Near or above optimal LDL 130-159 mg/dL Borderline high LDL 160-189 mg/dL High LDL greater than 189 mg/dL Very high Performed By: #### L IPID, CMP, TSH3 wRFLX, CBC #### [address] Triglyceride w/Reflex 81 mg/dL Normal 0-149 [facility] Comment on above: Order Comment: Reaso n for Exam Essential (primary) hypertension Result Comment: TRIG ATP III CLASSIFICATION TRIG less than 150 mg/dL Normal TRIG 150-199 mg/dL Borderline high TRIG 200-500 mg/dL High TRIG greater than 500 mg/dL Very high Standard traceable to the Center for Disease Conrtrol and Prevention (CDC) test method. Performed By: #### L IPID, CMP, TSH3 wRFLX, CBC #### [facility] [address] VLDL CHOLESTEROL 16 mg/dL Normal [facility] Comment on above: Order Comment: Reaso n for Exam Essential (primary) hypertension Performed By: #### L IPID, CMP, TSH3 wRFLX, CBC #### [facility] [address] Lymphocytes [#/volume] in Bl ood by Automated countOrdered By: Mary Lou Louie on 09-16-2023 Lymphocytes (Bld) [#/Vol] 2.9 10*3/uL Normal 1.00-4.8 [facility] Comment on above: Order Comment: Reaso n for Exam Essential (primary) hypertension Performed By: #### L IPID, CMP, TSH3 wRFLX, CBC #### [facility] [address] [place] [address] [place] Lymphocytes/100 leukocytes i n Blood by Automated countOrdered By: Mary Lou Louie on 09-16-2023 Lymphocytes/100 WBC (Bld) 18.9 % Normal . [facility] Comment on above: Order Comment: Reaso n for Exam Essential (primary) hypertension Performed By: #### L IPID, CMP, TSH3 wRFLX, CBC #### [facility] [address] [place] [address] MCH [Entitic mass] by Automa vinicio countOrdered By: Mary Lou Louie on 09-16-2023 MCH (RBC) [Entitic mass] 30.1 pg Normal 27.5-35.2 [facility] Comment on above: Order Comment: Reaso n for Exam Essential (primary) hypertension Performed By: #### L IPID, CMP, TSH3 wRFLX, CBC #### [facility] [address] [place] [address] MCHC Auto (RBC) [Mass/Vol]Or dered By: Mary Lou Louie on 09-16-2023 MCHC (RBC) [Mass/Vol] 33.6 g/dL 32.5-35.6 [facility] MCV [Entitic volume] by Auto mated countOrdered By: Mary Lou Louie on 09-16-2023 MCV (RBC) [Entitic vol] 89.7 fL Normal 83.5-101 F [facility] Comment on above: Order Comment: Reaso n for Exam Essential (primary) hypertension Performed By: #### L IPID, CMP, TSH3 wRFLX, CBC #### [facility] [address] [place] [id number] [place] Neutrophils [#/volume] in Bl ood by Automated countOrdered By: Mary Lou Louie on 09-16-2023 Neutrophils (Bld) [#/Vol] 10.9 10*3/uL High 1.8-7.7 [facility] Comment on above: Order Comment: Reaso n for Exam Essential (primary) hypertension Performed By: #### L IPID, CMP, TSH3 wRFLX, CBC #### [facility] [address] No Panel InformationOrdered By: Mary Lou Louie on 09-16-2023 Estimated GFR (CKD-EPI) > 60.0 mL/Min [facility] Creatinine Clearance (Chem N/A [facility] Nucleated erythrocytes [Pres ence] in Blood by Automated countOrdered By: Mary Lou Louie on 09-16-2023 Nucleated RBC Auto Ql (Bld) 0.1 /100{WBC} 0-0.5 [facility] Platelet mean volume [Entiti c volume] in Blood by Automated countOrdered By: Mary Lou Louie on 09-16-2023 Platelet mean volume (Bld) [Entitic vol] 9.1 fL Normal 6.6-10.1 [facility] Comment on above: Order Comment: Reaso n for Exam Essential (primary) hypertension Performed By: #### L IPID, CMP, TSH3 wRFLX, CBC #### [facility] [address] [place] [address] [place] Platelets [#/volume] in Bloo d by Automated countOrdered By: Mary Lou Louie on 09-16-2023 Platelets (Bld) [#/Vol] 329 10*3/uL Normal 150-450 [facility] Comment on above: Order Comment: Reaso n for Exam Essential (primary) hypertension Performed By: #### L IPID, CMP, TSH3 wRFLX, CBC #### [facility] [address] [place] [address] [place] Potassium [Moles/volume] in Serum or PlasmaOrdered By: Mary Lou Louie on 09-16-2023 Potassium [Moles/Vol] 4.0 mmol/L Normal 3.5-5.1 [facility] Comment on above: Lipemia is present a t a level that could interfere with the result.Hemolysis is present at a level that could interfere with the result. Order Comment: Reaso n for Exam Essential (primary) hypertension Result Comment: Rekha poppy is present at a level that could interfere with the result. Hemolysis is present at a level that could interfere with the result. Performed By: #### L IPID, CMP, TSH3 wRFLX, CBC #### [facility] [address] [place] [address] Protein [Mass/volume] in Ser um or PlasmaOrdered By: Mary Lou Louie on 09-16-2023 Protein [Mass/Vol] 8.3 g/dL Normal 6.4-8.9 [facility] Comment on above: Order Comment: Reaso n for Exam Essential (primary) hypertension Performed By: #### L IPID, CMP, TSH3 wRFLX, CBC #### [facility] [address] [place] [id number] [facility] Serum globulin measurement b y calculation (mass/volume)Ordered By: Mary Lou Louie on 09-16-2023 Globulin (S) [Mass/Vol] 4.5 g/dL Normal [facility] Comment on above: Order Comment: Reaso n for Exam Essential (primary) hypertension Performed By: #### L IPID, CMP, TSH3 wRFLX, CBC #### [facility] [address] [place], [place] [id number] [facility] Serum or plasma albumin/glob ulin mass ratioOrdered By: Mary Lou Louie on 09-16-2023 Albumin/Globulin [Mass ratio] 0.8 {ratio} Normal [facility] Comment on above: Order Comment: Reaso n for Exam Essential (primary) hypertension Performed By: #### L IPID, CMP, TSH3 wRFLX, CBC #### [facility] [address] [place] [id number] [place] Serum or plasma anion gap de terminationOrdered By: Mary Lou Louie on 09-16-2023 Anion gap [Moles/Vol] 17.2 mmol/L High 6.0-15.0 [facility] Comment on above: Order Comment: Reaso n for Exam Essential (primary) hypertension Performed By: #### L IPID, CMP, TSH3 wRFLX, CBC #### [facility] [address] Serum or plasma high density lipoprotein (HDL) cholesterol measurementOrdered By: Mary Lou Louie on 09-16-2023 Cholesterol in HDL [Mass/Vol] 39 mg/dL Normal 23-92 [facility] Comment on above: HDL CHOL ATP-III CLA SSIFICATION Cardiovascular RiskHDL > or equal to 60 mg/dL LOWHDL < 40 mg/dL HIGH Order Comment: Reaso n for Exam Essential (primary) hypertension Result Comment: HDL CHOL ATP-III CLASSIFICATION Cardiovascular Risk HDL > or equal to 60 mg/dL LOW HDL < 40 mg/dL HIGH Performed By: #### L IPID, CMP, TSH3 wRFLX, CBC #### [facility] [address] Serum or plasma total choles terol/high density lipoprotein (HDL) cholesterol mass ratOrdered By: Mary Lou Louie on 09-16-2023 Cholesterol.total/Choles terol in HDL [Mass ratio] 3.2 {ratio} Normal <5.0 [facility] Comment on above: Order Comment: Reaso n for Exam Essential (primary) hypertension Performed By: #### L IPID, CMP, TSH3 wRFLX, CBC #### [facility] [address] [place] [id number] [place] Sodium [Moles/volume] in Ser um or PlasmaOrdered By: Mary Lou Louie on 09-16-2023 Sodium [Moles/Vol] 137 mmol/L Normal 136-145 [facility] Comment on above: Lipemia is present a t a level that could interfere with the result.Hemolysis is present at a level that could interfere with the result. Order Comment: Reaso n for Exam Essential (primary) hypertension Result Comment: Rekha poppy is present at a level that could interfere with the result. Hemolysis is present at a level that could interfere with the result. Performed By: #### L IPID, CMP, TSH3 wRFLX, CBC #### [facility] [address] Thyroid Stim Hormone w/Rflxo n 09-16-2023 Thyroid Stim Hormone w/Rflx 1.78 u[iU]/mL Normal 0.45-5.33 [facility] Comment on above: Order Comment: Reaso n for Exam Essential (primary) hypertension Result Comment: PERF ORMED BY: [place] [address] PATHOLOGIST DIRECTOR REGULATORY AFFAIRS CECE DUNHAM M.D. Performed By: #### L IPID, CMP, TSH3 wRFLX, CBC #### [address] Thyrotropin [Units/volume] i n Serum or PlasmaOrdered By: Mary Lou Louie on 09-16-2023 TSH Qn 1.78 m[IU]/L 0.45-5.33 [facility] Triglyceride [Mass/volume] i n Serum or PlasmaOrdered By: Mary Lou Louie on 09-16-2023 Triglyceride [Mass/Vol] 81 mg/dL 0-149 [facility] Comment on above: TRIG ATP III CLASSIF ICATIONTRIG less than 150 mg/dL NormalTRIG 150-199 mg/dL Borderline highTRIG 200-500 mg/dL High TRIG greater than 500 mg/dL Very highStandard traceable to the Center for Disease Conrtrol and Prevention (CDC) test method. Urea nitrogen [Mass/volume] in Serum or PlasmaOrdered By: Mary Lou Louie on 09-16-2023 Urea nitrogen [Mass/Vol] 18 mg/dL Normal 7-25 [facility] Comment on above: Order Comment: Reaso n for Exam Essential (primary) hypertension Performed By: #### L IPID, CMP, TSH3 wRFLX, CBC #### [place] [address] [place] Albumin [Mass/volume] in Ser um or PlasmaOrdered By: Mary Lou Louie on 05-02-2022 Albumin [Mass/Vol] 3.4 g/dL 3.2-5.5 [facility] Basophils Auto (Bld) [#/Vol] Ordered By: Mary Lou Louie on 05-02-2022 Basophils (Bld) [#/Vol] 0.0 10*3/uL 0.0-0.2 [facility] Basophils/100 WBC Auto (Bld) Ordered By: Mary Lou Louie on 05-02-2022 Basophils/100 WBC (Bld) 0.4 % . [facility] Cholesterol [Mass/volume] in Serum or PlasmaOrdered By: Mary Lou Louie on 05-02-2022 Cholesterol [Mass/Vol] 140 mg/dL 140-200 [facility] Comment on above: Chol less than 200 m g/dl low riskChol 201-239 mg/dl borderline riskChol 240 mg/dl and greater high risk Cholesterol in LDL Calc [Mas s/Vol]Ordered By: Mary Lou Louie on 05-02-2022 Cholesterol in LDL [Mass/Vol] 94 mg/dL 0-100 [facility] Comment on above: LDL ATP III CLASSIFI CATIONLDL less than 100 mg/dL OptimalLDL 100-129 mg/dL Near or above optimalLDL 130-159 mg/dL Borderline highLDL 160-189 mg/dL HighLDL greater than 189 mg/dL Very high Cholesterol in VLDL Calc [Ma ss/Vol]Ordered By: Mary Lou Louie on 05-02-2022 Cholesterol in VLDL [Mass/Vol] 10 mg/dL [facility] Creatinine and Glomerular fi ltration rate.predicted panel (S/P/Bld)Ordered By: Mary Lou Louie on 05-02-2022 Creatinine [Mass/Vol] 1.10 mg/dL 0.64-1.27 [facility] Eosinophils Auto (Bld) [#/Vo l]Ordered By: Mary Lou Louie on 05-02-2022 Eosinophils (Bld) [#/Vol] 0.1 10*3/uL 0.0-0.45 [facility] Eosinophils/100 WBC Auto (Bl d)Ordered By: Mary Lou Louie on 05-02-2022 Eosinophils/100 WBC (Bld) 1.0 % . [facility] Erythrocyte distribution wid th Auto (RBC) [Ratio]Ordered By: Mary Lou Louie on 05-02-2022 Erythrocyte distribution width (RBC) [Ratio] 15.6 % 12.0-14.8 [facility] Estimated glomerular filtrat ion rate (GFR) non- AmericanOrdered By: Mary Lou Louie on 05-02-2022 GFR/1.73 sq M.predicted among non-blacks MDRD (S/P/Bld) [Vol rate/Area] > 60 mL/Min [facility] Globulin Calc (S) [Mass/Vol] Ordered By: Mary Lou Louie on 05-02-2022 Globulin (S) [Mass/Vol] 3.7 g/dL [facility] Hematocrit Auto (Bld) [Volum e fraction]Ordered By: Mary Lou Louie on 05-02-2022 Hematocrit (Bld) [Volume fraction] 48.4 % 38.8-50.0 [facility] Hemoglobin [Mass/volume] in BloodOrdered By: Mary Lou Louie on 05-02-2022 Hemoglobin (Bld) [Mass/Vol] 15.9 g/dL 13.0-17.0 [facility] Leukocytes [#/volume] correc vinicio for nucleated erythrocytes in Blood by Automated counOrdered By: Mary Lou Louie on 05-02-2022 WBC corrected for nucl RBC Auto (Bld) [#/Vol] 10.7 10*3/uL 4.1-10.5 [facility] Lymphocytes Auto (Bld) [#/Vo l]Ordered By: Mary Lou Louie on 05-02-2022 Lymphocytes (Bld) [#/Vol] 2.1 10*3/uL 1.00-4.8 [facility] Lymphocytes/100 WBC Auto (Bl d)Ordered By: Mary Lou Louie on 05-02-2022 Lymphocytes/100 WBC (Bld) 19.6 % . [facility] MCH Auto (RBC) [Entitic mass ]Ordered By: Mary Lou Louie on 05-02-2022 MCH (RBC) [Entitic mass] 29.2 pg 27.5-35.2 [facility] MCHC Auto (RBC) [Mass/Vol]Or dered By: Mary Lou Louie on 05-02-2022 MCHC (RBC) [Mass/Vol] 32.9 g/dL 32.5-35.6 [facility] MCV Auto (RBC) [Entitic vol] Ordered By: Mary Lou Louie on 05-02-2022 MCV (RBC) [Entitic vol] 88.6 fL 83.5-101 F [facility] Monocytes Auto (Bld) [#/Vol] Ordered By: Mary Lou Louie on 05-02-2022 Monocytes (Bld) [#/Vol] 0.8 10*3/uL 0.0-0.8 [facility] Monocytes/100 WBC Auto (Bld) Ordered By: Mary Lou Louie on 05-02-2022 Monocytes/100 WBC (Bld) 7.1 % . [facility] Neutrophils Auto (Bld) [#/Vo l]Ordered By: Mary Lou Louie on 05-02-2022 Neutrophils (Bld) [#/Vol] 7.7 10*3/uL 1.8-7.7 [facility] Neutrophils/100 WBC Auto (Bl d)Ordered By: Mary Lou Louie on 05-02-2022 Neutrophils/100 WBC (Bld) 71.9 % . [facility] No Panel InformationOrdered By: Mary Lou Louie on 05-02-2022 Estimated GFR () > 60 mL/Min [facility] Comment on above: GFR estimated refere nce range: According to KDOQI guidelines, <60 ml/min/1.73m2 is sufficient to diagnose a patient with chronic kidney disease. Pharmacy Creatinine Clearance (Chem N/A [facility] Nucleated erythrocytes [Pres ence] in Blood by Automated countOrdered By: Mary Lou Louie on 05-02-2022 Nucleated RBC Auto Ql (Bld) 0.1 /100{WBC} 0-0.5 [facility] Platelet mean volume Auto (B ld) [Entitic vol]Ordered By: Mary Lou Louie on 05-02-2022 Platelet mean volume (Bld) [Entitic vol] 9.3 fL 6.6-10.1 [facility] Platelets Auto (Bld) [#/Vol] Ordered By: Mary Lou Louie on 05-02-2022 Platelets (Bld) [#/Vol] 284 10*3/uL 150-450 [facility] Protein [Mass/volume] in Ser um or PlasmaOrdered By: Mary Lou Louie on 05-02-2022 Protein [Mass/Vol] 7.1 g/dL 6.1-7.9 [facility] RBC Auto (Bld) [#/Vol]Ordere d By: Mary Lou Louie on 05-02-2022 RBC (Bld) [#/Vol] 5.46 10*6/uL 3.90-5.60 [facility] Serum or plasma alanine balderas otransferase measurement without P-5'-P (enzymatic activiOrdered By: Mary Lou Louie on 05-02-2022 ALT No additional P-5'-P [Catalytic activity/Vol] 17 U/L 10-60 [facility] Serum or plasma albumin/glob ulin mass ratioOrdered By: Mary Lou Louie on 05-02-2022 Albumin/Globulin [Mass ratio] 0.9 {ratio} [facility] Serum or plasma alkaline jemal sphatase measurement (enzymatic activity/volume)Ordered By: Mary Lou Louie on 05-02-2022 ALP [Catalytic activity/Vol] 112 U/L 32-92 [facility] Serum or plasma anion gap de terminationOrdered By: Mary Lou Louie on 05-02-2022 Anion gap [Moles/Vol] 12.5 mmol/L 6.0-15.0 [facility] Serum or plasma aspartate am inotransferase measurement (enzymatic activity/volume)Ordered By: Mary Lou Louie on 05-02-2022 AST [Catalytic activity/Vol] 20 U/L 10-42 [facility] Serum or plasma calcium juliana urement (mass/volume)Ordered By: Mary Lou Louie on 05-02-2022 Calcium [Mass/Vol] 9.1 mg/dL 8.2-10.2 [facility] Serum or plasma chloride blanca surement (moles/volume)Ordered By: Mary Lou Louie on 05-02-2022 Chloride [Moles/Vol] 106 mmol/L 95-114 [facility] Serum or plasma glucose juliana urement (mass/volume)Ordered By: Mary Lou Louie on 05-02-2022 Glucose [Mass/Vol] 96 mg/dL 70-100 [facility] Comment on above: ADA recommended refe rence rangeRandom Glucose Reference Range is dependent on time and content of last meal. Glucose of more than 200 mg/dL in a nonstressed, ambulatory subject supports the diagnosis of Diabetes Mellitus. Serum or plasma high density lipoprotein (HDL) cholesterol measurementOrdered By: Mary Lou Louie on 05-02-2022 Cholesterol in HDL [Mass/Vol] 35 mg/dL 29-71 [facility] Comment on above: HDL CHOL ATP-III CLA SSIFICATION Cardiovascular RiskHDL > or equal to 60 mg/dL LOWHDL < 40 mg/dL HIGH Serum or plasma potassium me asurement (moles/volume)Ordered By: Mary Lou Louie on 05-02-2022 Potassium [Moles/Vol] 4.1 mmol/L 3.5-5.1 [facility] Serum or plasma sodium measu rement (moles/volume)Ordered By: Mary Lou Louie on 05-02-2022 Sodium [Moles/Vol] 137 mmol/L 136-146 [facility] Serum or plasma total biliru bin measurement (mass/volume)Ordered By: Mary Lou Louie on 05-02-2022 Bilirubin [Mass/Vol] 0.3 mg/dL 0.3-1.2 [facility] Serum or plasma total carbon dioxide measurement (moles/volume)Ordered By: Mary Lou Louie on 05-02-2022 CO2 [Moles/Vol] 22.6 mmol/L 22.0-30.0 [facility] Serum or plasma total choles terol/high density lipoprotein (HDL) cholesterol mass ratOrdered By: Mary Lou Louie on 05-02-2022 Cholesterol.total/Choles terol in HDL [Mass ratio] 4.0 {ratio} <5.0 [facility] Serum or plasma urea nitroge n measurement (mass/volume)Ordered By: Mary Lou Louie on 05-02-2022 Urea nitrogen [Mass/Vol] 16 mg/dL 9-23 [facility] TSH DL <= 0.005 mIU/L QnOrde red By: Mary Lou Louie on 05-02-2022 TSH Qn 2.26 m[IU]/L 0.45-5.33 [facility] Triglyceride [Mass/volume] i n Serum or PlasmaOrdered By: Mary Lou Louie on 05-02-2022 Triglyceride [Mass/Vol] 53 mg/dL 35-149 [facility] Comment on above: TRIG ATP III CLASSIF ICATIONTRIG less than 150 mg/dL NormalTRIG 150-199 mg/dL Borderline highTRIG 200-500 mg/dL High TRIG greater than 500 mg/dL Very highStandard traceable to the Center for Disease Conrtrol and Prevention (CDC) test method. WBC Auto (Bld) [#/Vol]Ordere d By: Mary Lou Louie on 05-02-2022 WBC (Bld) [#/Vol] 10.7 10*3/uL 4.1-10.5 [facility] Provider Letteron 05-08-2021 Provider Letter May 08, 2021 May 08, 2021 [facility] [address] [place] [address] JACQUES ANTOINE 1980 Dear _ , You [...] Sincerely, [facility] [address] [place] [address] Normal [facility] ED Note-Physicianon 02-18-20 ED Note-Physician [id number]:127 Normal [facility] Lab Reportson 02-17-2021 Lab Reports [id number]:127 Normal [facility] RAD - CT Reporton 02-17-2021 RAD - CT Report [id number]:127 Normal [facility] CBC AUTO DIFFon 02-03-2021 BASO # 0.1 103/ul Normal 0.0-0.1 [facility] Comment on above: Performed By: #### C BC #### [facility] [address] [place] [address] Dr. Thuan Enriquez Basophils/100 WBC (Bld) 0.5 % Normal 0.2-2.0 [facility] Comment on above: Performed By: #### C BC #### [facility] [address] [place] [address] Dr. Thuan Enriquez EO # 0.2 103/ul Normal 0.0-0.7 [facility] Comment on above: Performed By: #### C BC #### [facility] [address] [place] [address] Dr. Thuan Enriquez Eosinophils/100 WBC (Bld) 1.2 % Normal 0.9-7.0 [facility] Comment on above: Performed By: #### C BC #### [facility] [address] [place] [address] Dr. Thuan Enriquez Erythrocyte distribution width (RBC) [Ratio] 15.5 % Critically high 11.0-15.0 [facility] Comment on above: Performed By: #### C BC #### [facility] [address] [place] [address] Dr. Thuan Enriquez Hematocrit (Bld) [Volume fraction] 46.1 % Normal 42.0-54.0 [facility] Comment on above: Performed By: #### C BC #### [facility] [address] [place] [address] Dr. Thuan Enriquez Hemoglobin (Bld) [Mass/Vol] 15.3 g/dL Normal 14.0-18.0 [facility] Comment on above: Performed By: #### C BC #### [facility] [address] [place] [address] Dr. Thuan Enriquez IG # 0.10 10e3/ul Critically high 0.00-0.03 [facility] Comment on above: Performed By: #### C BC #### [facility] [address] [place] [address] Dr. Thuan Enriquez IG % 0.5 % Normal 0.0-0.5 [facility] Comment on above: Performed By: #### C BC #### [facility] [address] [place] [address] Dr. Thuan Enriquez LYMPH # 2.4 103/ul Normal 1.2-3.8 [facility] Comment on above: Performed By: #### C BC #### [facility] [address] [place] [address] Dr. Thuan Enriquez Lymphocytes/100 WBC (Bld) 18.7 % Critically low 20.5-60.0 [facility] Comment on above: Performed By: #### C BC #### [facility] [address] [place] [address] Dr. Thuan Enriquez MANUAL DIFF REQ NO Normal [facility] Comment on above: Performed By: #### C BC #### [facility] [address] [place] [address] Dr. Thuan Enriquez MCH (RBC) [Entitic mass] 29.5 pg Normal 25.9-34.0 [facility] Comment on above: Performed By: #### C BC #### [facility] [address] [address] [address] Thuan Enriquez MCHC (RBC) [Mass/Vol] 33.2 g/dL Normal 29.9-35.2 [facility] Comment on above: Performed By: #### C BC #### [facility] [address] [place] [address] Dr. Thuan Enriquez MCV (RBC) [Entitic vol] 89.0 fL Normal 80.0-94.0 [facility] Comment on above: Performed By: #### C BC #### [facility] [address] [address] [address] Thuan Enriquez MONO # 1.1 103/ul Critically high 0.3-0.8 [facility] Comment on above: Performed By: #### C BC #### [facility] [address] [place] [address] Dr. Thuan Enriquez Monocytes/100 WBC (Bld) 8.6 % Normal 1.7-12.0 [facility] Comment on above: Performed By: #### C BC #### [facility] [address] [place] [address] Dr. Thuan Enriquez NEUT # 9.1 103/ul Critically high 1.4-6.5 [facility] Comment on above: Performed By: #### C BC #### [facility] [address] [place] [address] Dr. Thuan Enriquez Neutrophils/100 WBC (Bld) 70.5 % Normal 43.0-75.0 [facility] Comment on above: Performed By: #### C BC #### [facility] [address] [place] [address] Dr. Thuan Enriquez Platelet mean volume (Bld) [Entitic vol] 10.7 fL Normal 9.5-13.5 [facility] Comment on above: Performed By: #### C BC #### [facility] [address] [place] [address] Dr. Thuan Enriquez PLT 332 103/ul Normal 150-450 [facility] Comment on above: Performed By: #### C BC #### [facility] [address] [place], [place] [address] Dr. Thuan Enriquez RBC 5.18 106/ul Normal 4.70-6.10 [facility] Comment on above: Performed By: #### C BC #### [facility] [id number] Thuan Enriquez WBC 12.8 103/ul Critically high 4.0-11.0 [facility] Comment on above: Performed By: #### C BC #### [facility] [address], [place] [address] ABD/PELVIS WO CONon [...] GUILLERMO CHAMBERS Date: 2021-02-03 12:08 Normal [facility] ER URINE PROFILEon Bilirubin Ql (U) Negative Normal NEGATIVE [facility] Comment on above: Performed By: #### POOJA GIANGRO #### [facility] [address] [place] [address] Dr. Thuan Enriquez Clarity (U) CLOUDY Abnormal CLEAR [facility] Comment on above: Performed By: #### Sury BLANC UMICRO #### [facility] [address] [place] [address] Dr. Thuan Enriquez Color (U) RED Abnormal YELLOW [facility] Comment on above: Performed By: #### AMPARO GIANGICRO #### [facility] [address] [place] [address] Dr. Thuan CHICAS A micrscopic examination will be performed if indicated. Normal [facility] Comment on above: Performed By: #### POOJA GIANGRO #### [facility] [address] [place] [address] Dr. Thuan Enriquez Glucose Ql (U) Negative Normal NEGATIVE [facility] Comment on above: Performed By: #### POOJA GIANGRO #### [facility] [address] [place] [address] Dr. Thuan Enriquez Hemoglobin Ql (U) LARGE Abnormal NEGATIVE [facility] Comment on above: Performed By: #### POOJA GIANGRO #### [facility] [address] [place] [address] Dr. Thuan Enriquez Ketones Ql (U) Negative Normal NEGATIVE [facility] Comment on above: Performed By: #### POOJA GIANGRO #### [facility] [address] [place] [address] Dr. Tuhan Enriquez LEUKOCYTES Negative Normal NEGATIVE [facility] Comment on above: Performed By: #### POOJA GIANGRO #### [facility] [address] [place] [address] Dr. Thuan Enriquez Nitrite Ql (U) Negative Normal NEGATIVE [facility] Comment on above: Performed By: #### AMPARO GIANGICRO #### [facility] [address] [place] [address] Dr. Thuan Enriquez pH (U) 6.0 [pH] Normal 5-9 [facility] Comment on above: Performed By: #### RESHMA GIANG #### [facility] [address] [place] [address] Dr. Thuan Enriquez Protein (U) [Mass/Vol] 30 mg/dL Abnormal NEGAT MONCHO/ TRACE [facility] Comment on above: Performed By: #### RESHMA GIANG #### [facility] [address] [place] [address] Dr. Thuan Enriquez SPEC GRAVITY >=1.030 Abnormal 1.005-<=1.02 5 [facility] Comment on above: Performed By: #### RESHMA GIANG #### [facility] [address] [place] [address] Dr. Thuan Enriquez UR MICRO IND INDICATED Normal [facility] Comment on above: Performed By: #### RESHMA GIANG #### [facility] [address] [place] [address] Dr. Thuan Enriquez Urobilinogen Qn (U) 1.0 {Leo'U}/dL Normal 0.2 - 1. 0 [facility] Comment on above: Performed By: #### RESHMA GIANG #### [facility] [address] [place] [address] Dr. Thuan Enriquez PROF CHEM 8 (BAS METB)on Anion gap [Moles/Vol] 14.6 mmol/L Normal [facility] Comment on above: Performed By: #### B MP #### [facility] [address] [place] [address] Dr. Thuan Enriquez Calcium [Mass/Vol] 8.7 mg/dL Normal 8.4-10.2 [facility] Comment on above: Performed By: #### B MP #### [facility] [address] [place] [address] Dr. Thuan Enriquez Chloride [Moles/Vol] 103 mmol/L Normal 98-107 [facility] Comment on above: Performed By: #### B MP #### [facility] [address] [address] [address] Thuan Enriquez CO2 [Moles/Vol] 22.8 mmol/L Normal 22.0-30.0 [facility] Comment on above: Performed By: #### B MP #### [facility] [address] [address] [address] Thuan Enriquez Creatinine [Mass/Vol] 1.13 mg/dL Normal 0.66-1.25 [facility] Comment on above: Performed By: #### B MP #### [facility] [address] [address] [address] Thuan Enriquez EGFR-AF ESTONIAN >60 Normal >=60 [facility] Comment on above: Performed By: #### B MP #### [facility] [address] [place] [address] Dr. Thuan Enriquez EGFR-NON AF ESTONIAN >60 Normal >=60 [facility] Comment on above: Performed By: #### B MP #### [facility] [address] [address] [address] Thuan Enriquez Glucose [Mass/Vol] 120 mg/dL Critically high 74-106 T [facility] Comment on above: Performed By: #### B MP #### [facility] [address] [address] [address] Thuan Enriquez Potassium [Moles/Vol] 3.4 mmol/L Normal 3.4-5.0 [facility] Comment on above: Performed By: #### B MP #### [facility] [address] [address] [address] Thuan Enriquez Sodium [Moles/Vol] 137 mmol/L Normal 137-145 [facility] Comment on above: Performed By: #### B MP #### [facility] [address] [place] [address] Dr. Thuan Enriquez Urea nitrogen [Mass/Vol] 15.0 mg/dL Normal 9.0-20.0 [facility] Comment on above: Performed By: #### B MP #### [facility] [address] [address] [address] Thuan Enriquez Urea nitrogen/Creatinine [Mass ratio] 13.3 mg/mg Normal [facility] Comment on above: Performed By: #### B MP #### [facility] [address] [place] [address] Dr. Thuan Enriquez URINE MICROSCOPIC ONLYon BACTERIA TRACE Abnormal NONE SEEN [facility] Comment on above: Performed By: #### E RUR, UMICRO #### [facility] [address] [place] [address] Dr. Thuan Enriquez Bacteria identified Cx Nom (U) NOT INDICATED Normal [facility] Comment on above: Performed By: #### E RUR, UMICRO #### [facility] [address] [place] [address] Dr. Thuan Enriquez CAST NONE SEEN Normal NONE SEEN [facility] Comment on above: Performed By: #### E RUR, UMICRO #### [facility] [address] [place] [address] Dr. Thuan Enriquez Crystals LM Nom (Urine sed) NONE SEEN Normal NONE SEEN [facility] Comment on above: Performed By: #### E RUR, UMICRO #### [facility] [address] [place] [address] Dr. Thuan Enriquez Epithelial cells LM Ql (Urine sed) FEW Abnormal NONE SEEN /RARE [facility] Comment on above: Performed By: #### E RUR, UMICRO #### [facility] [address] [place] [address] Dr. Thuan Enriquez MUCOUS MODERATE Abnormal NONE SEEN [facility] Comment on above: Performed By: #### E RUR, UMICRO #### [facility] [address] [place] [address] Dr. Thuan Enriquez RBC (U) [#/Vol] /uL Abnormal 0-2 [facility] Comment on above: Performed By: #### E RUR, UMICRO #### [facility] [address] [place] [address] Dr. Thuan Enriquez WBC 2-5 Abnormal NONE SEEN [facility] Comment on above: Performed By: #### E RUR, UMICRO #### [facility] [address] [address] [address] Thuan Enriquez Encounters Encounter Date Encounter Type Care Provider Facility Start: 09-16-2023 End: 09-16-2023 ambulatory Mary Lou Louie [facility] Work Phone: Start: 09-16-2023 End: 09-16-2023 Departed Referred [employer] Mary Lou Louie Work Phone: [facility] Start: 02-11-2023 End: 02-12-2023 ambulatory Frankie Bright MD Facility:[facility] Start: 02-04-2023 End: 02-05-2023 ambulatory Frankie Bright MD Facility:[facility] Start: 05-02-2022 End: 05-02-2022 ambulatory Services Family [facility] Work Phone: [facility] Work Phone: Start: 05-02-2022 End: 05-02-2022 Departed Referred Services [facility] Work Phone: [facility] Start: 01-09-2022 End: 01-10-[address] CRYSTAL STEINER Facility:[facility] Start: 01-02-[address] DOCTOR VICENTE Facility :[facility] Start: 02-03-2021 End: 02-03-2021 ambulatory FEDERICA EARLY Facility:[facility] Payers Date Payer Category Payer Private Health Insurance [id number] 2022 Private Health Insurance 1980 Unknown [id number] 1980 Unknown [id number] 1980 Unknown [id number] .[id number] [id number] 1980 Unknown [id number] .. [id number] 1980 Unknown [id number] 1959 Self-pay 1959 Unknown [id number] Unknown [id number] Social History Date Type Detail Facility Tobacco smoking stat [facility] Unknown if ever smoked [facility] Work Phone: Start: 1980 Sex Assigned At Male F [facility] Start: 04-23-2018 Tobacco smoking stat [facility] Never smoked tobacco (finding) [facility] Consultation note 01-09-2022 Note Date & Type Note Facility 01-09-2022 Note CONSULTATION CONSULTATION DATE: 01/09/2022 CHIEF COMPLAINT: Low back pain, bilateral lower extremity pain. HISTORY OF PRESENT ILLNESS: This is a 41-year-old gentleman, who was referred to us from [facility]. The patient states he stepped out [...] therapy treatments a few years ago in [place]. The patient's PAST MEDICAL HISTORY / SURGICAL [...] that Mary Lou Louie, nurse practitioner at [facility] has ordered an x-ray of his lumbar spine which is scheduled here at [place]. Subsequent to reviewing the x-ray, we will determine whether the patient would benefit from an MRI prior to being seen and interventional treatment started. The patient has significant pain behavior. One again, the ER consult was offered to the patient. CC: Mary Lou Louie, HEBER [facility] Evaluation note Note Date & Type Note Facility Evaluation note No assessment information availa [facility] Work Phone: Summary Purpose Family History No Family History Records Found Relationship Condition Age at Onset Recorded Date/T giovanna Not Specified Thrombus Unknown Diabetes mellitus Unknown Depression Unknown Hypertension Unknown Relationship Condition Age at Onset Recorded Date/T giovanna Not Specified Thrombus Unknown Diabetes mellitus Unknown Depression Unknown Not Specified Hypertension Unknown sister Type 2 diabetes mellitus Unknown Advance Directives No Advanced Directives Records Found Advance Directive Response Recorded Date/ Time Advance Directives No May 02, 2022 7:08pm Advance Directive Response Recorded Date/ Time Advance Directives No May 02, 2022 8:08pm Chief Complaint and Reason for Visit Chief Complaint Essential (primary) hypertension Additional Source Comments (unrecognized sect ion and content) No Status Records FoundNo Status Records FoundNo Status Records FoundNo Status Records Found INFORMATION SOURCE (unrecogn ized section and content) DATE CREATED AUTHOR 07/07/2021 [facility] DATE CREATED AUTHOR AUTHOR'S ORGANIZ ATION 01/14/2022 [facility] DATE CREATED AUTHOR AUTHOR'S ORGANIZ ATION 02/17/2023 [facility] DATE CREATED AUTHOR AUTHOR'S ORGANIZ ATION 09/21/2023 [facility] Care Teams (unrecognized sec tion and content) Team Status: Inactive Member Role Status Dates Services [facility] Primary Care Provider Active GAGE Dumont Attending Provider A ctive Team Status: Active Member Role Status Dates Services [facility] Primary Care Provider Active Team Status: Inactive Member Role Status Dates GAGE Dumont Attending Provider A ctive Start: September 16, 2023 End: September 16, 2023 Goals (unrecognized section and content) Goals may be documented in a n alternate sectionGoals may be documented in an alternate section FOR RECORDS PERTAINING TO PATIENTS [...] BE BASED ON THE PRIMARY CLINICAL RECORDS. [employer] provides no warranty or guarantee of the accuracy or completeness of information in this document.
--- NOTE | 2023-10-03 22:06 | XR_ITS ---
The [address] [address] Patient Name: SALVADOR ANTOINE MRN: [id number] date: 1980 Sex: M Assigned Patient Location: ER Current Patient Location: ER Accession/Order Number: [id number] Exam Date: 10/03/2023 22:30 Report Date: 10/03/2023 23:01 At the request of: TRISTON MARKER Procedure: XR chest 1V EXAM: XR chest 1V REASON FOR EXAM: Male, 43 years, SOB. TECHNIQUE: A single AP view of the chest is performed. COMPARISON: None. FINDINGS: Cardiac monitoring leads overlie the chest. The lungs are underinflated but clear. Normal pleura. Normal size heart. Normal mediastinum and zbigniew. Normal visualized pulmonary arteries. Normal visualized aortic arch and descending thoracic aorta. Normal visualized thoracic spine. Normal visualized ribs, clavicles, and shoulders. There is no demonstrated abnormality of the visualized soft tissue structures of the upper abdomen. XR/XR chest 1V IMPRESSION: Low lung volumes, without focal consolidation. Electronically authenticated by: WANDA BORGES Date: 10/03/2023 23:01
--- NOTE | 2023-10-03 22:08 | ED_ITS ---
HPI HPI - General Adult General Chief complaint: Shortness of Breath/Dyspnea Stated complaint: back pain Time Seen by Provider: 10/03/23 21:51 Source: patient and friend Mode of arrival: Wheelchair History of Present Illness HPI narrative: This 43-year-old male who is morbidly obese and lives with a friend of his locally is brought to the emergency department by his friend for evaluation of 3 days of generalized illness with fevers, chills, shortness of breath, diffuse body aches with back pain, mild nausea but no vomiting or diarrhea. No abdominal pain. He has a headache. He has no skin rash. He states he has been urinating a lot. He has mostly been sleeping for the past 3 days. He does not have a history of diabetes. He denies any sick contacts. He was treated here at the end of August for urinary tract infection. Related Data Home Medications ?Medication ?Instructions ?Recorded ?Confirmed amlodipine 10 mg tablet 10 mg PO .hs 02/04/23 09/06/23 fluticasone 500 mcg-salmeterol 50 1 inh inhalation BID 02/04/23 10/03/23 mcg/dose blistr powdr for inhalation (Advair Diskus) losartan 100 mg tablet 100 mg PO DAILY 02/04/23 09/13/23 topiramate 50 mg capsule,extended 50 mg PO DAILY 02/04/23 02/04/23 release 24 hr albuterol sulfate 90 mcg/actuation inhalation 10/03/23 aerosol inhaler brexpiprazole 1 mg tablet (Rexulti) mg 10/03/23 cetirizine 10 mg tablet mg 10/03/23 duloxetine 60 mg capsule,delayed mg PO 10/03/23 release methocarbamol 500 mg tablet mg 10/03/23 topiramate 50 mg tablet mg 10/03/23 Previous Rx's ?Medication ?Instructions ?Recorded amlodipine 10 mg tablet 10 mg PO DAILY #10 tabs 09/06/23 amoxicillin 500 mg capsule 500 mg PO TID 10 days #30 caps 09/06/23 valsartan 320 1 tab PO DAILY #10 tabs 09/06/23 mg-hydrochlorothiazide 25 mg tablet cephalexin 500 mg capsule 500 mg PO TID 7 days #21 caps 09/13/23 phenazopyridine 200 mg tablet 200 mg PO Q8H PRN pain #15 tabs 09/13/23 (Pyridium) methocarbamol 1,000 mg tablet 1,000 mg PO BID PRN spasms #60 tabs 09/26/23 Allergies Allergy/AdvReac Type Severity Reaction Status Date / Time No Known Drug Allergies Allergy Verified 10/03/23 21:43 Opioid HPI Opioid Management Most Recent Opioid Data: Last Pain Scale 8 10/03/23 21:50 Last Pain Assessment 10/04/23 03:37 Last MAR Pain Assessment 10/04/23 03:36 Last ORT Total Score 14 10/04/23 02:55 Last ORT Risk Category High Risk 10/04/23 02:55 Review of Systems ROS Status of ROS 10 or more systems reviewed and unremark able except as noted in history and [facility] History (Updated 10/04/23 @ 02:59 by Mady Moncada RN) Schizophrenia ?F20.9 - Schizophrenia, unspecified (ICD-10) Anxiety ?F41.9 - Anxiety disorder, unspecified (ICD-10) Depression ?F32.A - Depression, unspecified (ICD-10) Surgical History (Updated 10/04/23 @ 02:54 by Mady Moncada RN) History of foot surgery ?Z98.890 - Other specified postprocedural states (ICD-10) Social History (Updated 10/04/23 @ 02:55 by Mady Moncada RN) Within the past year, how often did you have a drink containing alcohol: monthly or less Within the past year, how many standard drinks containing alcohol did you have on a typical day: 10 or more Within the past year, how often did you have six or more drinks on one occasion: monthly Total score: 10 Score interpretation: A score of 4 or more indicates drinking is likely to affect patient's safety. Do you use any of these nicotine containing products: smokeless tobacco Non-prescribed substance use: cannabis (any form) Non-prescribed substance use details: smokes marijuana approx 4-5 days ago Known occupational exposures/hazards: No Highest level of school completed/degree received: GED or equivalent Do you want help with school or training: No Are you now , , , , never or living with a partner: never In a typical week, how many times do you talk on the telephone with family, friends, or neighbors: 3 or more times per week How often do you get together with friends or relatives: 3 or more times per week How often do you attend yazdanism or oriental orthodox services: never Do you belong to any clubs or organizations such as yazdanism groups unions, fraternal or athletic groups, or school groups: no Total score: 1 Score interpretation: A score of less than or equal to 1 indicates the most socially isolated. Little interest or pleasure in doing things: several days Feeling down, depressed, or hopeless: several days Feel stressed/tense/nervous/anxious/difficulty sleeping: rather much Life stressors: other Life stressor details: Health issues, living arrangements Do you think of yourself as: straight/heterosexual Gender Identity: male Exam Narrative Exam Narrative: Vital signs and Nursing Notes reviewed: Patient is febrile, tachycardic, tachypneic with an elevated blood pressure at 169/94 and mildly hypoxic with pulse ox of 92% on room air General: Poorly kempt, ill-appearing morbidly obese male, he is awake alert oriented, appears uncomfortable HEENT: Normocephalic atraumatic, mucous membranes are dry, vision is grossly intact, no swelling of the tongue, uvula or pharyngeal soft tissues Neck: Supple, no meningeal signs, no anterior or posterior cervical lymphadenopathy Chest: Faint rales at bilateral lung bases CVS: Regular rate and rhythm S1-S2, tachycardic with a pulse of 120 at triage, 115 on exam that increases to 125 when the patient sits up ABD: Soft, nondistended, nontender, no rebound guarding or rigidity, bowel sounds are normal, no pulsatile masses appreciated Extremities: Moving all extremities, no lower extremity tenderness or swelling noted, negative Homans' sign, pulses are brisk and equal bilaterally Skin: Normal in appearance without rash,pallor, petechiae or purpura Neuro: No focal deficits Constitutional Vital Signs, click to edit/add: Last Vital Signs Temp 99.5 F 10/04/23 03:36 Pulse 114 H 10/04/23 03:53 Resp 26 H 10/04/23 02:43 BP 162/84 H 10/04/23 02:43 Pulse Ox 88 L 10/04/23 04:00 O2 Del Method Room Air, Home BIPAP / CPAP 10/04/23 04:00 O2 Flow Rate 4 10/04/23 03:30 Course Vital Signs Vital signs: Vital Signs Temperature 99.5 F 10/03/23 21:43 Pulse Rate 120 H 10/03/23 21:43 Respiratory Rate 30 H 10/03/23 21:43 Blood Pressure 169/94 H 10/03/23 21:43 Pulse Oximetry 92 L 10/03/23 21:43 Oxygen Delivery Method Room Air 10/03/23 21:43 Temperature 99.5 F 10/04/23 03:36 Pulse Rate 114 H 10/04/23 03:53 Respiratory Rate 26 H 10/04/23 02:43 Blood Pressure 162/84 H 10/04/23 02:43 Pulse Oximetry 88 L 10/04/23 04:00 Oxygen Delivery Method Room Air, Home BIPAP / CPAP 10/04/23 04:00 Oxygen Delivery Flow Rate 4 10/04/23 03:30 Medical Decision Making MDM Narrative Medical decision making narrative: This 43-year-old male who is morbidly obese and has a history of hypertension, asthma, depression and gets frequent urinary tract infections is brought to the emergency department by his roommate for evaluation of 3 days of general illness. The patient states he has been sleeping for the past 3 days. He has not been eating or drinking. He has been urinating a lot. He does not think he is diabetic. He was seen at the end of August for urinary tract infection and prescribed Keflex. The patient has multiple physical complaints including headache, diffuse bodyaches, mild nausea with no vomiting or diarrhea, shortness of breath, dizziness and generalized weakness. His neuroexam is normal. His mucous membranes are dry, he was noted to be febrile and tachycardic and mildly hypoxic upon arrival. According to the patient and previous records he does have a history of a PE in the past. He is not having any leg pain or swelling but does complain of shortness of breath is febrile, tachycardic and hypoxic. He wears a CPAP at home for sleep. An EKG was done upon arrival is a sinus tachycardia at 115 bpm with an incomplete right bundle branch block and no acute changes. An IV was placed in the emergency department. He was placed on the alarm security or surveillance monitor. He was medicated with Tylenol for his fever, a [place] for his headache and Zofran. Toradol was withheld due to the elevated creatinine. a septic workup was ordered including CBC with differential, lactic acid, 2 sets of blood cultures, comprehensive metabolic profile, troponin, D-dimer, respiratory panel and urinalysis as well as chest x-ray. Patient has an elevated white count 21.3 with a stable hemoglobin. Sodium is mildly low at 132 and potassium is low at 3. Lactic acid was elevated. BUN and creatinine are elevated with a creatinine of 1.89. Respiratory panel was negative. Troponin was negative. D-dimer was elevated at 3.68. Urinalysis was positive for leukocyte Estrace and white blood cells. Culture is pending at this time. He was given 2 g of IV Rocephin for the urinary tract infection as his UTI at the end of August was sensitive to Rocephin. CT scan of the brain was done due to the history of headache and the CT scan of the brain was read by radiology and was normal. CTA of the chest was ordered due to the elevated D-dimer but the study was inadequate and there was no contrast in the pulmonary arteries. The remainder of the CT scan of the chest was read by radiology with no acute findings. He was empirically given a dose of Lovenox due to the history of shortness of breath, tachycardia and elevated D-dimer. CT scan of the abdomen pelvis shows sludge in the gallbladder, 4.1 cm cystic hepatic ovoid mass, and a 2.9 cm cystic mass in the left kidney. It also shows bladder inflammation consistent with the patient's urinary tract infection. The patient was given 2 L of saline, lactic acid was repeated and was normal at 1.3. The patient's clinical status improved while in the emergency department. His roommate went home to get his CPAP machine. The case was discussed with the hospitalist and the patient accepted for admission. Medical Records Medical records narrative: [place] [address] CT Scan Report Signed Patient: SALVADOR ANTOINE MR#: [id number] : 1980 Acct:[id number] Age/Sex: 43 / M ADM Date: 10/03/23 Loc: ER Attending Dr: Ordering Physician: Melissa Juarez Date of Service: 10/03/23 Procedure(s): CT head/brain wo con Accession Number(s): [id number] cc: Physician,Non-Staff MKwaku~ [facility] [place] [id number] Patient Name: SALVADOR ANTOINE MRN: [id number] date: 1980 Sex: M Assigned Patient Location: ER Current Patient Location: ER Accession/Order Number: [id number] Exam Date: 10/03/2023 23:50 Report Date: 10/04/2023 00:42 At the request of: MARKER Procedure: CT head/brain wo con INDICATION: 43 years old; Male. Headache. Fever. TECHNIQUE: CT Head (ax/cor/sag reformats). Ionizing radiation dose reduced via iterative reconstruction/FBP blend and body size kV/mA adjustment. Comparison: Head CT dated 10/20/2017. FINDINGS: POSTOPERATIVE CHANGES: None. BRAIN PARENCHYMA: No intraparenchymal or extra-axial hemorrhage. No mass effect. No midline shift or herniation. Normal khanna/white differentiation. VENTRICLES/EXTRA-AXIAL SPACES: Normal for patient's age. SINUSES/MASTOIDS: Cyst or polyp formation the maxillary sinus on the left. Thickening within frontal sinus on the left. Maxillary sinuses not completely included. Mastoids and middle ears are clear. MSK: No displaced or depressed calvarial fracture. OTHER: No hyperdense intraluminal thrombus. CT/CT head/brain wo con IMPRESSION: 1. No acute intracranial abnormality. No hemorrhage or mass effect. Electronically authenticated by: HEIDY BEAR Date: 10/04/2023 00:42 [place] [address] CT Scan Report Signed Patient: SALVADOR ANTOINE MR#: [id number] : 1980 Acct:[id number] Age/Sex: 43 / M ADM Date: 10/03/23 Loc: ER Attending Dr: Ordering Physician: Melissa Juarez Date of Service: 10/03/23 Procedure(s): CT abdomen pelvis w con Accession Number(s): [id number] cc: Physician,Non-Staff Jeimy~ The [address] [address] Patient Name: SALVADOR ANTOINE MRN: [id number] date: 1980 Sex: M Assigned Patient Location: ER Current Patient Location: ER Accession/Order Number: [id number] Exam Date: 10/03/2023 23:50 Report Date: 10/04/2023 01:21 At the request of: MARKER Procedure: CT abdomen pelvis w con EXAM: CT angio chest, CT abdomen pelvis w con HISTORY: SOB, elevated d dimer , fever abdominal pain. COMPARISON: Chest x-ray 10/03/2023, most recent available comparison CT abdomen pelvis 02/03/2021 TECHNIQUE: Multiple axial views CT angiogram chest and CT abdomen pelvis performed after administration of 100 cc Visipaque 270 IV contrast. Coronal sagittal reformats performed. MIPS and/or similar series performed. 3-D reconstruction of the thoracic abdominal aorta performed. FINDINGS: VASCULAR: No thoracic abdominal aortic aneurysm, dissection, or rupture. The pulmonary arteries are not opacified by IV contrast and cannot be evaluated. The intra-abdominal arterial vasculature is patent. CHEST: Central airway is patent. Mosaic attenuation of the bilateral lungs. No lung consolidation, large pleural effusion, or pneumothorax. No enlarged heart size or large pericardial effusion. No acute bony abnormality. ABDOMEN AND PELVIS: Diffuse severe hepatic steatosis and hepatosplenomegaly. Right hepatic lobe measures 23 cm craniocaudal length. Spleen measures 13 cm craniocaudal length. 4.1 cm oval cystic mass at the left hepatic lobe (image 110 series 6), previously 2.[address] 02/03/2021. Mildly fluid-filled distended gallbladder with minimal gallbladder biliary sludge and/or stones. No pericholecystic fluid or inflammatory stranding. Pancreas, adrenal glands, right kidney, and appendix are unremarkable. Focal hypodensity/striated nephrogram at the left inferior renal cortex (image 131 series 6). An enlarging 2.9 cm oval low-density cystic mass at the left posterior superior renal cortex (image 106 series 6), previously 1.[address] 02/03/2021. There is currently slight internal density within the renal mass. Mild circumferential urinary bladder wall thickening. Prostate measures 3.4 cm transverse diameter. Moderate amount of stool within the right colon. Stomach is underdistended. No evidence for small bowel obstruction, large ascites, or free air. Multilevel lumbar disc osteophyte complexes/disc bulges and facet arthropathy throughout the lumbar levels. Multilevel lumbar moderate lumbar spinal canal narrowing at L1-L2 L3-L4 and L4-L5. CT/CT abdomen pelvis w con IMPRESSION: VASCULAR: 1. No thoracic abdominal aortic aneurysm, dissection, or rupture. 2. The pulmonary arteries are not opacified by IV contrast and cannot be evaluated. CHEST: 1. Mosaic attenuation of the bilateral lungs raising the suspicion for sequela of small reactive airway inflammation and/or airway trapping. 2. No suspicious lung consolidation, lung infiltrates, or large effusions. ABDOMEN AND PELVIS: 1. Mildly fluid-filled distended gallbladder with minimal gallbladder biliary sludge and/or stones. No pericholecystic fluid or inflammatory stranding. Recommend close clinical attention for signs and symptoms of right upper quadrant abdominal pain/cholecystitis. Ultrasound to further evaluate as indicated. 2. Focal hypodensity/striated nephrogram at the left inferior renal cortex (image 131 series 6). Recommend clinical correlation and with urinalysis for sequela of pyelonephritis. 3. An enlarging 2.9 cm oval low-density cystic mass at the left posterior superior renal cortex (image 106 series 6), previously 1.[address] 02/03/2021. There is currently slight internal density within the renal mass which requires further evaluation with nonemergency MRI abdomen with contrast renal mass protocol and/or ultrasound to further evaluate for any developing internal solid/vascular neoplastic component. 4. Mild circumferential urinary bladder wall thickening reflect sequela of bladder underdistention versus sequela of urinary tract inflammation/infection. Correlate clinically and with urinalysis as indicated. 5. Diffuse severe hepatic steatosis and hepatosplenomegaly. 6. 4.1 cm oval cystic mass at the left hepatic lobe (image 110 series 6), previously 2.[address] 02/03/2021. 7. Multilevel lumbar disc osteophyte complexes/disc bulges and facet arthropathy throughout the lumbar levels. Multilevel lumbar moderate lumbar spinal canal narrowing at L1-L2 L3-L4 and L4-L5. Findings are as similar to minimally progressed when compared to CT 02/03/2021. Electronically authenticated by: YAEL ROLAND Date: 10/04/2023 01:21 Lab Data Lab results reviewed: Yes I reviewed the patient's lab results Labs: Lab Results 10/03/23 10/03/23 10/04/23 Range/Units 21:50 22:22 00:56 WBC 21.3 H (4.0-11.0) 10^3/uL RBC 5.04 (4.70-6.10) 10^6/uL Hgb 15.1 (14.0-18.0) g/dL Hct 44.9 (42.0-54.0) % MCV 89.1 (80.0-94.0) fL MCH 30.0 (25.9-34.0) pg MCHC 33.6 (29.9-35.2) g/dL RDW 15.1 H (11.0-15.0) % Plt Count 272 (150-450) 10^3/uL MPV 10.5 (9.5-13.5) fL Seg Neuts % (Manual) 80.0 Lymphocytes % (Manual) 4.0 L (20.5-60.0) % Atypical Lymphs % (Man) 3.0 % Monocytes % (Manual) 9.0 (1.7-12.0) % Eosinophils % (Manual) 0.0 L (0.9-7.0) % Basophils % (Manual) 0.0 L (0.2-2.0) % Myelocytes % 4.0 Neutrophils # (Manual) 17.04 H (1.4-6.5) 10^3/uL Lymphocytes # (Manual) 0.85 L (1.20-3.80) 10^3/uL Abs Atypical Lymphs Man 0.63 Monocytes # (Manual) 1.91 H (0.30-0.80) 10^3/uL Eosinophils # (Manual) 0.00 (0.00-0.70) 10^3/uL Basophils # (Manual) 0.00 (0.00-0.10) 10^3/uL Myelocytes # 0.85 D-Dimer 3.86 H* (<=0.59) mg/L FEU Sodium 132 L (136-145) mmol/L Potassium 3.0 L (3.5-5.1) mmol/L Chloride 98 (98-107) mmol/L Carbon Dioxide 22.6 (21.0-32.0) mmol/L Anion Gap 14.4 BUN 18.0 (7.0-18.0) mg/dL Creatinine 1.89 H (0.70-1.30) mg/dL Est GFR ( Amer) 47 L (>=60) Est GFR (Non-Af Amer) 39 L (>=60) BUN/Creatinine Ratio 9.5 Glucose 111 H (74-106) mg/dL Lactate 1.6 (0.4-2.0) mmol/L Calcium 8.7 (8.5-10.1) mg/dL Total Bilirubin 1.9 H (0.2-1.0) mg/dL AST 26 (15-37) U/L ALT 26 (16-63) U/L Alkaline Phosphatase 104 (46-116) U/L Troponin I High Sens 19.8 (4.0-76.1) pg/mL Total Protein 8.6 H (6.4-8.2) g/dL Albumin 3.0 L (3.4-5.0) g/dL Globulin 5.6 g/dL Albumin/Globulin Ratio 0.5 Urine Color Yellow (YELLOW) Urine Clarity Clear (CLEAR) Urine pH 6.0 (5.0-9.0) Ur Specific Vaughn 1.010 (1.005-1.025) Urine Protein 100 A (NEG/TRACE) mg/dL Urine Glucose (UA) Negative (NEGATIVE) mg/dL Urine Ketones Negative (NEGATIVE) mg/dL Urine Occult Blood Large A (NEGATIVE) Urine Nitrite Negative (NEGATIVE) Urine Bilirubin Small A (NEGATIVE) Urine Urobilinogen 1.0 (0.2-1.0) EU/dL Ur Leukocyte Esterase Moderate A (NEGATIVE) Urine RBC 2-5 A (0-2) #/HPF Urine WBC 10-20 A (NONE SEEN) #/HPF Ur Squamous Epith Cells Rare (NONE/RARE) #/LPF Urine Crystals Seen A (None Seen) #/HPF Amorphous Sediment Moderate Urine Bacteria Small A (NONE SEEN) #/HPF Urine Casts None seen (NONE SEEN) #/LPF Urine Mucus None seen (NONE SEEN) Ur Culture Indicated? Yes Adenovirus (PCR) Not detected (NOT DETECTE) B. pertussis DNA (PCR) Not detected (NOT DETECTE) B.parapertussis DNA PCR Not detected (NOT DETECTE) C. pneumoniae DNA (PCR) Not detected (NOT DETECTE) Coronavirus Type OC43 Not detected (NOT DETECTE) Coronavirus Type HKU1 Not detected (NOT DETECTE) Coronavirus Type 229E Not detected (NOT DETECTE) Coronavirus Type NL63 Not detected (NOT DETECTE) Monoscreen Negative (NEGATIVE) Human Metapneumovir PCR Not detected (NOT DETECTE) Influenza Type A (PCR) Not detected (NOT DETECTE) Influenza Type B (PCR) Not detected (NOT DETECTE) M. pneumoniae (PCR) Not detected (NOT DETECTE) Parainfluenza PCR Not detected (NOT DETECTE) Parainfluenza 2 (PCR) Not detected (NOT DETECTE) Parainfluenza 3 (PCR) Not detected (NOT DETECTE) Parainfluenza 4 (PCR) Not detected (NOT DETECTE) RSV (RT-PCR) Not detected (NOT DETECTE) Entero/Rhino (PCR) Not detected (NOT DETECTE) SARS-CoV-2 (PCR) Not detected (NOT DETECTE) Streptococcus Screen Negative 10/04/23 Range/Units 01:44 WBC (4.0-11.0) 10^3/uL RBC (4.70-6.10) 10^6/uL Hgb (14.0-18.0) g/dL Hct (42.0-54.0) % MCV (80.0-94.0) fL MCH (25.9-34.0) pg MCHC (29.9-35.2) g/dL RDW (11.0-15.0) % Plt Count (150-450) 10^3/uL MPV (9.5-13.5) fL Seg Neuts % (Manual) Lymphocytes % (Manual) (20.5-60.0) % Atypical Lymphs % (Man) % Monocytes % (Manual) (1.7-12.0) % Eosinophils % (Manual) (0.9-7.0) % Basophils % (Manual) (0.2-2.0) % Myelocytes % Neutrophils # (Manual) (1.4-6.5) 10^3/uL Lymphocytes # (Manual) (1.20-3.80) 10^3/uL Abs Atypical Lymphs Man Monocytes # (Manual) (0.30-0.80) 10^3/uL Eosinophils # (Manual) (0.00-0.70) 10^3/uL Basophils # (Manual) (0.00-0.10) 10^3/uL Myelocytes # D-Dimer (<=0.59) mg/L FEU Sodium (136-145) mmol/L Potassium (3.5-5.1) mmol/L Chloride (98-107) mmol/L Carbon Dioxide (21.0-32.0) mmol/L Anion Gap BUN (7.0-18.0) mg/dL Creatinine (0.70-1.30) mg/dL Est GFR ( Amer) (>=60) Est GFR (Non-Af Amer) (>=60) BUN/Creatinine Ratio Glucose (74-106) mg/dL Lactate 1.3 (0.4-2.0) mmol/L Calcium (8.5-10.1) mg/dL Total Bilirubin (0.2-1.0) mg/dL AST (15-37) U/L ALT (16-63) U/L Alkaline Phosphatase (46-116) U/L Troponin I High Sens (4.0-76.1) pg/mL Total Protein (6.4-8.2) g/dL Albumin (3.4-5.0) g/dL Globulin g/dL Albumin/Globulin Ratio Urine Color (YELLOW) Urine Clarity (CLEAR) Urine pH (5.0-9.0) Ur Specific Vaughn (1.005-1.025) Urine Protein (NEG/TRACE) mg/dL Urine Glucose (UA) (NEGATIVE) mg/dL Urine Ketones (NEGATIVE) mg/dL Urine Occult Blood (NEGATIVE) Urine Nitrite (NEGATIVE) Urine Bilirubin (NEGATIVE) Urine Urobilinogen (0.2-1.0) EU/dL Ur Leukocyte Esterase (NEGATIVE) Urine RBC (0-2) #/HPF Urine WBC (NONE SEEN) #/HPF Ur Squamous Epith Cells (NONE/RARE) #/LPF Urine Crystals (None Seen) #/HPF Amorphous Sediment Urine Bacteria (NONE SEEN) #/HPF Urine Casts (NONE SEEN) #/LPF Urine Mucus (NONE SEEN) Ur Culture Indicated? Adenovirus (PCR) (NOT DETECTE) B. pertussis DNA (PCR) (NOT DETECTE) B.parapertussis DNA PCR (NOT DETECTE) C. pneumoniae DNA (PCR) (NOT DETECTE) Coronavirus Type OC43 (NOT DETECTE) Coronavirus Type HKU1 (NOT DETECTE) Coronavirus Type 229E (NOT DETECTE) Coronavirus Type NL63 (NOT DETECTE) Monoscreen (NEGATIVE) Human Metapneumovir PCR (NOT DETECTE) Influenza Type A (PCR) (NOT DETECTE) Influenza Type B (PCR) (NOT DETECTE) M. pneumoniae (PCR) (NOT DETECTE) Parainfluenza PCR (NOT DETECTE) Parainfluenza 2 (PCR) (NOT DETECTE) Parainfluenza 3 (PCR) (NOT DETECTE) Parainfluenza 4 (PCR) (NOT DETECTE) RSV (RT-PCR) (NOT DETECTE) Entero/Rhino (PCR) (NOT DETECTE) SARS-CoV-2 (PCR) (NOT DETECTE) Streptococcus Screen ECG Data Attestation: I personally reviewed and interpreted this ECG as follows: (Sinus tachycardia at 115 bpm, normal axis, incomplete right bundle branch block, no acute ST segment elevation or T wave inversion) Critical Care Time Critical Care Time Critical Care Time: Yes Total Critical Care Time: 40 Attestation: . Discharge Plan Discharge Chief Complaint: Shortness of Breath/Dyspnea Clinical Impression: Sepsis, Acute UTI, Hypokalemia, Fatty liver, Acute kidney injury Patient Disposition: Admitted As Inpatient Time of Disposition Decision: 02:58 Condition: Fair Discharge Date/Time: 10/04/23 02:35
[2023-10-03 22:14] LABS: Hematocrit 44.9 % (42.0-54.0); Hemoglobin 15.1 g/dL (14.0-18.0); Mean Corpuscular HGB Conc 33.6 g/dL (29.9-35.2); Mean Corpuscular Volume 89.1 fL (80.0-94.0); Mean Platelet Volume 10.5 fL (9.5-13.5); Platelet Count 272 10^3/uL (150-450); Red Blood Count 5.04 10^6/uL (4.70-6.10); Red Cell Distribution Width 15.1 % (11.0-15.0); White Blood Count 21.3 10^3/uL (4.0-11.0)
[2023-10-03 22:20] LABS: Internal Control Within Normal Limits; Mono Screen NEGATIVE (NEGATIVE)
[2023-10-03 22:29] LABS: Lactate/Lactic Acid 1.6 mmol/L (0.4-2.0)
[2023-10-03 22:33] LABS: Adenovirus NOT DETECTED (NOT DETECTE); Bordetella parapertussis NOT DETECTED (NOT DETECTE); Coronavirus 229E NOT DETECTED (NOT DETECTE); Coronavirus HKU1 NOT DETECTED (NOT DETECTE); Coronavirus NL63 NOT DETECTED (NOT DETECTE); Coronavirus OC43 NOT DETECTED (NOT DETECTE); Human Metapneumovirus NOT DETECTED (NOT DETECTE); Human Rhinovirus/Enterovirus NOT DETECTED (NOT DETECTE); Influenza A NOT DETECTED (NOT DETECTE); Influenza B NOT DETECTED (NOT DETECTE); Mycoplasma pneumoniae NOT DETECTED (NOT DETECTE); Parainfluenza Virus 1 NOT DETECTED (NOT DETECTE); Parainfluenza Virus 2 NOT DETECTED (NOT DETECTE); Parainfluenza Virus 3 NOT DETECTED (NOT DETECTE); Parainfluenza Virus 4 NOT DETECTED (NOT DETECTE); Respiratory Syncytial Virus NOT DETECTED (NOT DETECTE); SARS-CoV-2 NOT DETECTED (NOT DETECTE)
[2023-10-03 22:34] LABS: Atypical Lymphocytes Abs Man 0.63; Lymphocytes Absolute Manual 0.85 10^3/uL (1.20-3.80); Monocytes Absolute Manual 1.91 10^3/uL (0.30-0.80); Myelocytes Absolute Manual 0.85; Segmented Neut Absolute Manual 17.04 10^3/uL (1.4-6.5)
[2023-10-03 22:35] LABS: Alanine Aminotransferase 26 U/L (16-63); Albumin Globulin Ratio 0.5; Alkaline Phosphatase 104 U/L (46-116); Anion Gap 14.4; Aspartate Amino Transferase 26 U/L (15-37); BUN Creatinine Ratio 9.5; Bilirubin Total 1.9 mg/dL (0.2-1.0); Calcium 8.7 mg/dL (8.5-10.1); Carbon Dioxide 22.6 mmol/L (21.0-32.0); Chloride 98 mmol/L (98-107); Estimated GFR (African America 47 (>=60); Estimated GFR (Non-African Ame 39 (>=60); Globulin 5.6 g/dL; Glucose 111 mg/dL (74-106); Sodium 132 mmol/L (136-145); Total Protein 8.6 g/dL (6.4-8.2); Troponin I High Sensitivity 19.8 pg/mL (4.0-76.1)
[2023-10-03 22:40] LABS: D Dimer 3.86 mg/L FEU (<=0.59)
[2023-10-03 22:43] LABS: Internal Control Within Normal Limits; Strep A Antigen Screen Negative
[2023-10-03] MEDS: ONDANSETRON PF 4 MG/2 ML VIAL IV (22:44)
[2023-10-03] MEDS: ACETAMINOPHEN 325 MG TABLET 650 MG PO (22:44)
[2023-10-03] MEDS: 0.9 % SODIUM CHLORIDE 1,000 ML 1000 ML IV (22:44)
--- NOTE | 2023-10-03 22:48 | CT_ITS ---
[address] [address] Patient Name: SALVADOR ANTOINE MRN: [id number] date: 1980 Sex: M Assigned Patient Location: ER Current Patient Location: ER Accession/Order Number: [id number] Exam Date: 10/03/2023 23:50 Report Date: 10/04/2023 01:21 At the request of: TRISTON MARKER Procedure: CT angio chest EXAM: CT angio chest, CT abdomen pelvis w con HISTORY: SOB, elevated d dimer , fever abdominal pain. COMPARISON: Chest x-ray 10/03/2023, most recent available comparison CT abdomen pelvis 02/03/2021 TECHNIQUE: Multiple axial views CT angiogram chest and CT abdomen pelvis performed after administration of 100 cc Visipaque 270 IV contrast. Coronal sagittal reformats performed. MIPS and/or similar series performed. 3-D reconstruction of the thoracic abdominal aorta performed. FINDINGS: VASCULAR: No thoracic abdominal aortic aneurysm, dissection, or rupture. The pulmonary arteries are not opacified by IV contrast and cannot be evaluated. The intra-abdominal arterial vasculature is patent. CHEST: Central airway is patent. Mosaic attenuation of the bilateral lungs. No lung consolidation, large pleural effusion, or pneumothorax. No enlarged heart size or large pericardial effusion. No acute bony abnormality. ABDOMEN AND PELVIS: Diffuse severe hepatic steatosis and hepatosplenomegaly. Right hepatic lobe measures 23 cm craniocaudal length. Spleen measures 13 cm craniocaudal length. 4.1 cm oval cystic mass at the left hepatic lobe (image 110 series 6), previously 2.[address] 02/03/2021. Mildly fluid-filled distended gallbladder with minimal gallbladder biliary sludge and/or stones. No pericholecystic fluid or inflammatory stranding. Pancreas, adrenal glands, right kidney, and appendix are unremarkable. Focal hypodensity/striated nephrogram at the left inferior renal cortex (image 131 series 6). An enlarging 2.9 cm oval low-density cystic mass at the left posterior superior renal cortex (image 106 series 6), previously 1.[address] 02/03/2021. There is currently slight internal density within the renal mass. Mild circumferential urinary bladder wall thickening. Prostate measures 3.4 cm transverse diameter. Moderate amount of stool within the right colon. Stomach is underdistended. No evidence for small bowel obstruction, large ascites, or free air. Multilevel lumbar disc osteophyte complexes/disc bulges and facet arthropathy throughout the lumbar levels. Multilevel lumbar moderate lumbar spinal canal narrowing at L1-L2 L3-L4 and L4-L5. CT/CT angio chest IMPRESSION: VASCULAR: 1. No thoracic abdominal aortic aneurysm, dissection, or rupture. 2. The pulmonary arteries are not opacified by IV contrast and cannot be evaluated. CHEST: 1. Mosaic attenuation of the bilateral lungs raising the suspicion for sequela of small reactive airway inflammation and/or airway trapping. 2. No suspicious lung consolidation, lung infiltrates, or large effusions. ABDOMEN AND PELVIS: 1. Mildly fluid-filled distended gallbladder with minimal gallbladder biliary sludge and/or stones. No pericholecystic fluid or inflammatory stranding. Recommend close clinical attention for signs and symptoms of right upper quadrant abdominal pain/cholecystitis. Ultrasound to further evaluate as indicated. 2. Focal hypodensity/striated nephrogram at the left inferior renal cortex (image 131 series 6). Recommend clinical correlation and with urinalysis for sequela of pyelonephritis. 3. An enlarging 2.9 cm oval low-density cystic mass at the left posterior superior renal cortex (image 106 series 6), previously 1.[address] 02/03/2021. There is currently slight internal density within the renal mass which requires further evaluation with nonemergency MRI abdomen with contrast renal mass protocol and/or ultrasound to further evaluate for any developing internal solid/vascular neoplastic component. 4. Mild circumferential urinary bladder wall thickening reflect sequela of bladder underdistention versus sequela of urinary tract inflammation/infection. Correlate clinically and with urinalysis as indicated. 5. Diffuse severe hepatic steatosis and hepatosplenomegaly. 6. 4.1 cm oval cystic mass at the left hepatic lobe (image 110 series 6), previously 2.[address] 02/03/2021. 7. Multilevel lumbar disc osteophyte complexes/disc bulges and facet arthropathy throughout the lumbar levels. Multilevel lumbar moderate lumbar spinal canal narrowing at L1-L2 L3-L4 and L4-L5. Findings are as similar to minimally progressed when compared to CT 02/03/2021. Electronically authenticated by: YAEL ROLAND Date: 10/04/2023 01:21
--- NOTE | 2023-10-03 22:48 | CT_ITS ---
The [address] [address] Patient Name: SALVADOR ANTOINE MRN: [id number] date: 1980 Sex: M Assigned Patient Location: ER Current Patient Location: Accession/Order Number: [id number] Exam Date: 10/03/2023 23:50 Report Date: 10/04/2023 00:42 At the request of: TRISTON MARKER Procedure: CT head/brain wo con INDICATION: 43 years old; Male. Headache. Fever. TECHNIQUE: CT Head (ax/cor/sag reformats). Ionizing radiation dose reduced via iterative reconstruction/FBP blend and body size kV/mA adjustment. Comparison: Head CT dated 10/20/2017. FINDINGS: POSTOPERATIVE CHANGES: None. BRAIN PARENCHYMA: No intraparenchymal or extra-axial hemorrhage. No mass effect. No midline shift or herniation. Normal khanna/white differentiation. VENTRICLES/EXTRA-AXIAL SPACES: Normal for patient's age. SINUSES/MASTOIDS: Cyst or polyp formation the maxillary sinus on the left. Thickening within frontal sinus on the left. Maxillary sinuses not completely included. Mastoids and middle ears are clear. MSK: No displaced or depressed calvarial fracture. OTHER: No hyperdense intraluminal thrombus. CT/CT head/brain wo con IMPRESSION: 1. No acute intracranial abnormality. No hemorrhage or mass effect. Electronically authenticated by: HEIDY BEAR Date: 10/04/2023 00:42
--- NOTE | 2023-10-03 23:39 | CT_ITS ---
[address] [address] Patient Name: SALVADOR ANTOINE MRN: [id number] date: 1980 Sex: M Assigned Patient Location: ER Current Patient Location: ER Accession/Order Number: [id number] Exam Date: 10/03/2023 23:50 Report Date: 10/04/2023 01:21 At the request of: TRISTON MARKER Procedure: CT abdomen pelvis w con EXAM: CT angio chest, CT abdomen pelvis w con HISTORY: SOB, elevated d dimer , fever abdominal pain. COMPARISON: Chest x-ray 10/03/2023, most recent available comparison CT abdomen pelvis 02/03/2021 TECHNIQUE: Multiple axial views CT angiogram chest and CT abdomen pelvis performed after administration of 100 cc Visipaque 270 IV contrast. Coronal sagittal reformats performed. MIPS and/or similar series performed. 3-D reconstruction of the thoracic abdominal aorta performed. FINDINGS: VASCULAR: No thoracic abdominal aortic aneurysm, dissection, or rupture. The pulmonary arteries are not opacified by IV contrast and cannot be evaluated. The intra-abdominal arterial vasculature is patent. CHEST: Central airway is patent. Mosaic attenuation of the bilateral lungs. No lung consolidation, large pleural effusion, or pneumothorax. No enlarged heart size or large pericardial effusion. No acute bony abnormality. ABDOMEN AND PELVIS: Diffuse severe hepatic steatosis and hepatosplenomegaly. Right hepatic lobe measures 23 cm craniocaudal length. Spleen measures 13 cm craniocaudal length. 4.1 cm oval cystic mass at the left hepatic lobe (image 110 series 6), previously 2.[address] 02/03/2021. Mildly fluid-filled distended gallbladder with minimal gallbladder biliary sludge and/or stones. No pericholecystic fluid or inflammatory stranding. Pancreas, adrenal glands, right kidney, and appendix are unremarkable. Focal hypodensity/striated nephrogram at the left inferior renal cortex (image 131 series 6). An enlarging 2.9 cm oval low-density cystic mass at the left posterior superior renal cortex (image 106 series 6), previously 1.[address] 02/03/2021. There is currently slight internal density within the renal mass. Mild circumferential urinary bladder wall thickening. Prostate measures 3.4 cm transverse diameter. Moderate amount of stool within the right colon. Stomach is underdistended. No evidence for small bowel obstruction, large ascites, or free air. Multilevel lumbar disc osteophyte complexes/disc bulges and facet arthropathy throughout the lumbar levels. Multilevel lumbar moderate lumbar spinal canal narrowing at L1-L2 L3-L4 and L4-L5. CT/CT abdomen pelvis w con IMPRESSION: VASCULAR: 1. No thoracic abdominal aortic aneurysm, dissection, or rupture. 2. The pulmonary arteries are not opacified by IV contrast and cannot be evaluated. CHEST: 1. Mosaic attenuation of the bilateral lungs raising the suspicion for sequela of small reactive airway inflammation and/or airway trapping. 2. No suspicious lung consolidation, lung infiltrates, or large effusions. ABDOMEN AND PELVIS: 1. Mildly fluid-filled distended gallbladder with minimal gallbladder biliary sludge and/or stones. No pericholecystic fluid or inflammatory stranding. Recommend close clinical attention for signs and symptoms of right upper quadrant abdominal pain/cholecystitis. Ultrasound to further evaluate as indicated. 2. Focal hypodensity/striated nephrogram at the left inferior renal cortex (image 131 series 6). Recommend clinical correlation and with urinalysis for sequela of pyelonephritis. 3. An enlarging 2.9 cm oval low-density cystic mass at the left posterior superior renal cortex (image 106 series 6), previously 1.[address] 02/03/2021. There is currently slight internal density within the renal mass which requires further evaluation with nonemergency MRI abdomen with contrast renal mass protocol and/or ultrasound to further evaluate for any developing internal solid/vascular neoplastic component. 4. Mild circumferential urinary bladder wall thickening reflect sequela of bladder underdistention versus sequela of urinary tract inflammation/infection. Correlate clinically and with urinalysis as indicated. 5. Diffuse severe hepatic steatosis and hepatosplenomegaly. 6. 4.1 cm oval cystic mass at the left hepatic lobe (image 110 series 6), previously 2.[address] 02/03/2021. 7. Multilevel lumbar disc osteophyte complexes/disc bulges and facet arthropathy throughout the lumbar levels. Multilevel lumbar moderate lumbar spinal canal narrowing at L1-L2 L3-L4 and L4-L5. Findings are as similar to minimally progressed when compared to CT 02/03/2021. Electronically authenticated by: YAEL ROLAND Date: 10/04/2023 01:21
--- NOTE | 2023-10-03 23:55 | PC.NURSE ---
Patient was 91% spo2 on room air. Oxygen initiated at 2LPM for patient comfort due to tachypnea and feeling SOB.
[2023-10-04] VITALS (81 sets, daily range): BP systolic 109–164; BP diastolic 53–100; PULSE 100–140; RESP 16; TEMP 36.7–38.4; O2SAT 82–98; BMI 62.3
[2023-10-04] MEDS: HYDROCODONE/ACET 5-325 MG TABLET 1 TAB PO (00:15)
[2023-10-04] MEDS: 0.9 % SODIUM CHLORIDE 1,000 ML 1000 ML IV (00:23)
[2023-10-04] MEDS: CEFTRIAXONE 2,000 MG in 0.9 % SODIUM CHLORIDE 100 ML 200 MG IV (00:23)
--- NOTE | 2023-10-04 00:32 | PC.NURSE ---
spo2 dropped down to 85% when patient was brought back from CT without oxygen on. He was put back on O2 and it was increased to 4LPM
[2023-10-04 01:02] LABS: Bilirubin Urine SMALL (NEGATIVE); Blood Urine LARGE (NEGATIVE); Clarity Urine CLEAR (CLEAR); Color Urine YELLOW (YELLOW); Glucose Urine UA NEGATIVE (NEGATIVE); Ketones Urine NEGATIVE (NEGATIVE); Leukocyte Esterase Urine MODERATE (NEGATIVE); Nitrite Urine NEGATIVE (NEGATIVE); Protein Urine 100 mg/dL (NEG/TRACE)
[2023-10-04 01:09] LABS: Amorphous Sediment Urine MODERATE; Bacteria Urine SMALL #/HPF (NONE SEEN); Crystals Seen? Seen #/HPF (None Seen); Mucus Urine NONE SEEN (NONE SEEN); Squamous Epithelial Cell Urine RARE #/LPF (NONE/RARE)
[2023-10-04 01:10] LABS: Cast Seen? NONE SEEN #/LPF (NONE SEEN); Urine Culture Indicated YES
[2023-10-04] MEDS: POTASSIUM CHLORIDE 10 MEQ ER TABLET 40 MEQ PO (01:52)
[2023-10-04] MEDS: ENOXAPARIN SODIUM 100 MG/ML SYRINGE SUBQ (01:52)
[2023-10-04 02:05] LABS: Lactate/Lactic Acid 1.3 mmol/L (0.4-2.0)
--- OUTSIDE RECORDS SUMMARY | 2023-10-04 02:34 | XMS_ITS | CCD ---
Author Organization [facility] Care Team Providers Care Pick Remover Name Role Phone FEDERICA EARLY Attending Unavailable CINTHIA, DR DUARTE Primary Care Unavailable FEDERICA EARLY Admitting Unavailable ZIEBGOLD, DR GUILLERMO Huang Consulting Unavailable FEDERICA EARLY Consulting Unavailable JATIN, DR CRYSTAL Ramirez Admitting Unavailable [facility] Primary Care Unavaila ble STEINER, DR CRYSTAL Ramirez Attending Unavailable JATIN, DR CRYSTAL Ramirez Consulting Unavailable CINTHIA, DR DUARTE Attending Unavailable [facility] Primary Care Unavaila ble MISC, DR DUARTE Admitting Unavailable [facility] Primary Care Provider GAGE Louie Attending Provider Kaila MASON, Frankie Casas Attending Unavailable Kaila MASON, Frankie Casas Attending Unavailable GAGE Louie Attending Provider Mary Lou Louie Admitting Unavailab Mary Lou Shetty Attending Unavailab [facility] Primary Care Unavaila ble Medications Current Medications Medication Drug Class(es) Dates Sig (Normalized) Sig (Original) [id number] 200 actuat albuterol 0.09 mg/actuat metered dose [...] ALT [Catalytic activity/Vol] 26 U/L Normal 7-[address] [facility] Comment on above: Order Comment: Reaso n for Exam Essential (primary) hypertension Performed By: #### L IPID, CMP, TSH3 wRFLX, CBC #### [address] Albumin [Mass/volume] in Ser um or Plasma by Bromocresol green (BCG) dye binding methoOrdered By: Mary Lou Louie on 09-16-2023 Albumin BCG dye [Mass/Vol] 3.8 g/dL 3.5-5.[address] [facility] Alkaline phosphatase [Enzyma tic activity/volume] in Serum or PlasmaOrdered By: Mary Louashleigh Louie on 09-16-2023 ALP [Catalytic activity/Vol] 99 U/L Normal 34-[address] [facility] Comment on above: Order Comment: Reaso n for Exam Essential (primary) hypertension Performed By: #### L IPID, CMP, TSH3 wRFLX, CBC #### [facility] [address] [place] [address] Aspartate aminotransferase [ Enzymatic activity/volume] in Serum or PlasmaOrdered By: Mary Lou Louie on 09-16-2023 AST [Catalytic activity/Vol] 35 U/L Normal 13-[address] [facility] Comment on above: Order Comment: Reaso n for Exam Essential (primary) hypertension Performed By: #### L IPID, CMP, TSH3 wRFLX, CBC #### [address] Automated basophil %Ordered By: Mary Lou Louie on 09-16-2023 Basophils/100 WBC (Bld) 0.7 % Normal . [facility] Comment on above: Order Comment: Reaso n for Exam Essential (primary) hypertension Performed By: #### L IPID, CMP, TSH3 wRFLX, CBC #### [facility] [address] [place] [address] Automated basophil countOrde red By: Mary Lou Louie on 09-16-2023 Basophils (Bld) [#/Vol] 0.1 10*3/uL Normal 0.0-0.[address] [facility] Comment on above: Order Comment: Reaso n for Exam Essential (primary) hypertension Result Comment: PERF ORMED BY: [place] [address] PATHOLOGIST WET CLEANER MACHINE CECE DUNHAM M.D. Performed By: #### L IPID, CMP, TSH3 wRFLX, CBC #### [facility] [address] [place] [address] Automated blood monocyte cou ntOrdered By: Mary Lou Louie on 09-16-2023 Monocytes (Bld) [#/Vol] 1.2 10*3/uL High 0.0-0.[address] [facility] Comment on above: Order Comment: Reaso n for Exam Essential (primary) hypertension Performed By: #### L IPID, CMP, TSH3 wRFLX, CBC #### [facility] [address] Automated eosinophil %Ordere d By: Mary Lou Louie on 09-16-2023 Eosinophils/100 WBC (Bld) 1.0 % Normal . [facility] Comment on above: Order Comment: Reaso n for Exam Essential (primary) hypertension Performed By: #### L IPID, CMP, TSH3 wRFLX, CBC #### [facility] [address] [place] [address] Automated eosinophil countOr dered By: Mary Lou Louie on 09-16-2023 Eosinophils (Bld) [#/Vol] 0.1 10*3/uL Normal 0.0-0.[address] [facility] Comment on above: Order Comment: Reaso n for Exam Essential (primary) hypertension Performed By: #### L IPID, CMP, TSH3 wRFLX, CBC #### [facility] [address] Automated monocyte %Ordered By: Mary Lou Louie on 09-16-2023 Monocytes/100 WBC (Bld) 7.6 % Normal . [facility] Comment on above: Order Comment: Reaso n for Exam Essential (primary) hypertension Performed By: #### L IPID, CMP, TSH3 wRFLX, CBC #### [facility] [address] [place] [address] [place] Automated neutrophil %Ordere d By: Mary Lou Louie on 09-16-2023 Neutrophils/100 WBC (Bld) 71.8 % Normal . [facility] Comment on above: Order Comment: Reaso n for Exam Essential (primary) hypertension Performed By: #### L IPID, CMP, TSH3 wRFLX, CBC #### [facility] [address] [place] [address] [place] Bilirubin.total [Mass/volume ] in Serum or PlasmaOrdered By: Mary Lou Louie on 09-16-2023 Bilirubin [Mass/Vol] 0.7 mg/dL Normal 0.3-1.0 [facility] Comment on above: Order Comment: Reaso n for Exam Essential (primary) hypertension Performed By: #### L IPID, CMP, TSH3 wRFLX, CBC #### [facility] [address] [place] [id number] [place] Calcium [Mass/volume] in Ser um or PlasmaOrdered By: Mary Lou Louie on 09-16-2023 Calcium [Mass/Vol] 9.4 mg/dL Normal 8.6-10.3 [facility] Comment on above: Order Comment: Reaso n for Exam Essential (primary) hypertension Performed By: #### L IPID, CMP, TSH3 wRFLX, CBC #### [facility] [address] [place] [id number] [facility] Carbon dioxide, total [Moles /volume] in Serum or PlasmaOrdered By: Mary Lou Louie on 09-16-2023 CO2 [Moles/Vol] 22.8 mmol/L Normal 21.0-31.0 [facility] Comment on above: Order Comment: Reaso n for Exam Essential (primary) hypertension Performed By: #### L IPID, CMP, TSH3 wRFLX, CBC #### [facility] [address] [place] [id number] [place] Chloride [Moles/volume] in S da or PlasmaOrdered By: Mary Lou Louie on 09-16-2023 Chloride [Moles/Vol] 101 mmol/L Normal 98-107 [facility] Comment on above: Lipemia is present [...] L IPID, CMP, TSH3 wRFLX, CBC #### [facility] [address] Cholesterol [Mass/volume] in Serum or PlasmaOrdered By: Mary Lou Louie on 09-16-2023 Cholesterol [Mass/Vol] 123 mg/dL Low 140-200 [facility] Comment on above: Chol less than 200 m g/dl low riskChol 201-239 mg/dl borderline riskChol 240 mg/dl and greater high risk Order Comment: Reaso n for Exam Essential (primary) hypertension Result Comment: Chol less than 200 mg/dl low risk Chol 201-239 mg/dl borderline risk Chol 240 mg/dl and greater high risk Performed By: #### L IPID, CMP, TSH3 wRFLX, CBC #### [facility] [address] [place] [address] [place] Cholesterol in LDL Calc [Mas s/Vol]Ordered By: Mary Lou Louie on 09-16-2023 Cholesterol in LDL [Mass/Vol] 68 mg/dL 0-[address] [facility] Comment on above: LDL ATP III CLASSIFI CATIONLDL less than 100 mg/dL OptimalLDL 100-129 mg/dL Near or above optimalLDL 130-159 mg/dL Borderline highLDL 160-189 mg/dL HighLDL greater than 189 mg/dL Very high Cholesterol in VLDL Calc [Ma ss/Vol]Ordered By: Mary Lou Louie on 09-16-2023 Cholesterol in VLDL [Mass/Vol] 16 mg/dL [facility] Complete Blood Count Auto Di ffon 09-16-2023 Mean Corpuscular HGB Conc 33.6 g/dL Normal 32.5-35.6 [facility] Comment on above: Order Comment: Reaso n for Exam Essential (primary) hypertension Performed By: #### L IPID, CMP, TSH3 wRFLX, CBC #### [facility] [address] [place] [address] [place] NRBC% 0.1 /100{WBC} Normal 0-0.5 [facility] Comment on above: Order Comment: Reaso n for Exam Essential (primary) hypertension Performed By: #### L IPID, CMP, TSH3 wRFLX, CBC #### [facility] [address] Comprehensive Metabolic Pane rosemarie 09-16-2023 Albumin [Mass/Vol] 3.8 g/dL Normal 3.5-5.7 [facility] Comment on above: Order Comment: Reaso n for Exam Essential (primary) hypertension Performed By: #### L IPID, CMP, TSH3 wRFLX, CBC #### [facility] [address] [place] [address] [place] GFR/1.73 sq M.predicted MDRD (S/P/Bld) [Vol rate/Area] mL/min/{1.73_m2} Normal [facility] Comment on above: Order Comment: Reaso n for Exam Essential (primary) hypertension Performed By: #### L IPID, CMP, TSH3 wRFLX, CBC #### [facility] [address] [place] [address] Creatinine [Mass/volume] in Serum or PlasmaOrdered By: Mary Lou Louie on 09-16-2023 Creatinine [Mass/Vol] 1.10 mg/dL Normal 0.70-1.30 [facility] Comment on above: Order Comment: Reaso n for Exam Essential (primary) hypertension Performed By: #### L IPID, CMP, TSH3 wRFLX, CBC #### [facility] [address] [place] [address] Erythrocyte distribution wid th [Ratio] by Automated countOrdered By: Mary Lou Louie on 09-16-2023 Erythrocyte distribution width (RBC) [Ratio] 15.2 % High 12.0-14.[address] [facility] Comment on above: Order Comment: Reaso n for Exam Essential (primary) hypertension Performed By: #### L IPID, CMP, TSH3 wRFLX, CBC #### [facility] [address] [place] [address] [place] Erythrocytes [#/volume] in B lood by Automated countOrdered By: Mary Lou Louie on 09-16-2023 RBC (Bld) [#/Vol] 5.27 10*6/uL Normal 3.90-5.60 [facility] Comment on above: Order Comment: Reaso n for Exam Essential (primary) hypertension Performed By: #### L IPID, CMP, TSH3 wRFLX, CBC #### [facility] [address] [place] [address] [place] Glucose [Mass/volume] in Ser um or PlasmaOrdered By: Mary Lou Louie on 09-16-2023 Glucose [Mass/Vol] 97 mg/dL Normal 70-100 [facility] Comment on above: ADA recommended refe rence rangeRandom Glucose Reference Range is dependent on time and content of last meal. Glucose of more than 200 mg/dL in a nonstressed, ambulatory subject supports the diagnosis of Diabetes Mellitus. Order Comment: Reaso n for Exam Essential (primary) hypertension Result Comment: [place] om Glucose Reference Range is dependent on time and content of last meal. Glucose of more than 200 mg/dL in a nonstressed, ambulatory subject supports the diagnosis of Diabetes Mellitus. ADA recommended reference range Performed By: #### L IPID, CMP, TSH3 wRFLX, CBC #### [facility] [address] [place] [address] [place] Hematocrit [Volume Fraction] of Blood by Automated countOrdered By: Mary Lou Louie on 09-16-2023 Hematocrit (Bld) [Volume fraction] 47.2 % Normal 38.8-50.[address] [facility] Comment on above: Order Comment: Reaso n for Exam Essential (primary) hypertension Performed By: #### L IPID, CMP, TSH3 wRFLX, CBC #### [facility] [address] [place] [id number] [place] Hemoglobin [Mass/volume] in BloodOrdered By: Mary Lou Louie on 09-16-2023 Hemoglobin (Bld) [Mass/Vol] 15.9 g/dL Normal 13.0-17.[address] [facility] Comment on above: Order Comment: Reaso n for Exam Essential (primary) hypertension Performed By: #### L IPID, CMP, TSH3 wRFLX, CBC #### [facility] [address] [place] [id number] [place] Leukocytes [#/volume] correc vinicio for nucleated erythrocytes in Blood by Automated counOrdered By: Mary Lou Louie on 09-16-2023 WBC corrected for nucl RBC Auto (Bld) [#/Vol] 15.2 10*3/uL 4.1-10.[address] [facility] Leukocytes [#/volume] in Blo od by Automated countOrdered By: Mary Lou Louie on 09-16-2023 WBC (Bld) [#/Vol] 15.2 10*3/uL High 4.1-10.5 [facility] Comment on above: Order Comment: Reaso n for Exam Essential (primary) hypertension Performed By: #### L IPID, CMP, TSH3 wRFLX, CBC #### [facility] [address] Lipid Panelon 09-16-2023 LDL Cholesterol,Calculated 68 mg/dL Normal 0-100 [facility] Comment on above: Order Comment: Reaso n for Exam Essential (primary) hypertension Result Comment: LDL ATP III CLASSIFICATION LDL less than 100 mg/dL Optimal LDL 100-129 mg/dL Near or above optimal LDL 130-159 mg/dL Borderline high LDL 160-189 mg/dL High LDL greater than 189 mg/dL Very high Performed By: #### L IPID, CMP, TSH3 wRFLX, CBC #### [address] Triglyceride w/Reflex 81 mg/dL Normal 0-149 [facility] Comment on above: Order Comment: [...] L IPID, CMP, TSH3 wRFLX, CBC #### [facility] [address] VLDL CHOLESTEROL 16 mg/dL Normal [facility] Comment on above: Order Comment: Reaso n for Exam Essential (primary) hypertension Performed By: #### L IPID, CMP, TSH3 wRFLX, CBC #### [facility] [address] Lymphocytes [#/volume] in Bl ood by Automated countOrdered By: Mary Lou Louie on 09-16-2023 Lymphocytes (Bld) [#/Vol] 2.9 10*3/uL Normal 1.00-4.[address] [facility] Comment on above: Order Comment: Reaso n for Exam Essential (primary) hypertension Performed By: #### L IPID, CMP, TSH3 wRFLX, CBC #### [facility] [address] [place] [address] [place] Lymphocytes/100 leukocytes i n Blood by Automated countOrdered By: Mary Lou Louie on 09-16-2023 Lymphocytes/100 WBC (Bld) 18.9 % Normal . [facility] Comment on above: Order Comment: Reaso n for Exam Essential (primary) hypertension Performed By: #### L IPID, CMP, TSH3 wRFLX, CBC #### [facility] [address] [place] [address] MCH [Entitic mass] by Automa vinicio countOrdered By: Mary Lou Louie on 09-16-2023 MCH (RBC) [Entitic mass] 30.1 pg Normal 27.5-35.[address] [facility] Comment on above: Order Comment: Reaso n for Exam Essential (primary) hypertension Performed By: #### L IPID, CMP, TSH3 wRFLX, CBC #### [facility] [address] [place] [address] MCHC Auto (RBC) [Mass/Vol]Or dered By: Mary Lou Louie on 09-16-2023 MCHC (RBC) [Mass/Vol] 33.6 g/dL 32.5-35.6 [facility] MCV [Entitic volume] by Auto mated countOrdered By: Mary Lou Louie on 09-16-2023 MCV (RBC) [Entitic vol] 89.7 fL Normal 83.5-101 F [facility] Comment on above: Order Comment: Reaso n for Exam Essential (primary) hypertension Performed By: #### L IPID, CMP, TSH3 wRFLX, CBC #### [facility] [address] [place] [id number] [place] Neutrophils [#/volume] in Bl ood by Automated countOrdered By: Mary Lou Louie on 09-16-2023 Neutrophils (Bld) [#/Vol] 10.9 10*3/uL High 1.8-7.[address] [facility] Comment on above: Order Comment: Reaso n for Exam Essential (primary) hypertension Performed By: #### L IPID, CMP, TSH3 wRFLX, CBC #### [facility] [address] No Panel InformationOrdered By: Mary Lou Louie on 09-16-2023 Estimated GFR (CKD-EPI) > 60.0 mL/Min [facility] Creatinine Clearance (Chem N/A [facility] Nucleated erythrocytes [Pres ence] in Blood by Automated countOrdered By: Mary Lou Louie on 09-16-2023 Nucleated RBC Auto Ql (Bld) 0.1 /100{WBC} 0-0.[address] [facility] Platelet mean volume [Entiti c volume] in Blood by Automated countOrdered By: Mary Lou Louie on 09-16-2023 Platelet mean volume (Bld) [Entitic vol] 9.1 fL Normal 6.6-10.[address] [facility] Comment on above: Order Comment: Reaso n for Exam Essential (primary) hypertension Performed By: #### L IPID, CMP, TSH3 wRFLX, CBC #### [facility] [address] [place] [address] [place] Platelets [#/volume] in Bloo d by Automated countOrdered By: Mary Lou Louie on 09-16-2023 Platelets (Bld) [#/Vol] 329 10*3/uL Normal 150-[address] [facility] Comment on above: Order Comment: Reaso n for Exam Essential (primary) hypertension Performed By: #### L IPID, CMP, TSH3 wRFLX, CBC #### [facility] [address] [place] [address] [place] Potassium [Moles/volume] in Serum or PlasmaOrdered By: Mary Lou Louie on 09-16-2023 Potassium [Moles/Vol] 4.0 mmol/L Normal 3.5-5.1 [facility] Comment on above: Lipemia is present [...] L IPID, CMP, TSH3 wRFLX, CBC #### [facility] [address] [place] [address] Protein [Mass/volume] in Ser um or PlasmaOrdered By: Mary Lou Louie on 09-16-2023 Protein [Mass/Vol] 8.3 g/dL Normal 6.4-8.9 [facility] Comment on above: Order Comment: Reaso n for Exam Essential (primary) hypertension Performed By: #### L IPID, CMP, TSH3 wRFLX, CBC #### [facility] [address] [place] [id number] [facility] Serum globulin measurement b y calculation (mass/volume)Ordered By: Mary Lou Louie on 09-16-2023 Globulin (S) [Mass/Vol] 4.5 g/dL Normal [facility] Comment on above: Order Comment: Reaso n for Exam Essential (primary) hypertension Performed By: #### L IPID, CMP, TSH3 wRFLX, CBC #### [facility] [address] [place], [place] [id number] [facility] Serum or plasma albumin/glob ulin mass ratioOrdered By: Mary Lou Louie on 09-16-2023 Albumin/Globulin [Mass ratio] 0.8 {ratio} Normal [facility] Comment on above: Order Comment: Reaso n for Exam Essential (primary) hypertension Performed By: #### L IPID, CMP, TSH3 wRFLX, CBC #### [facility] [address] [place] [id number] [place] Serum or plasma anion gap de terminationOrdered By: Mary Lou Louie on 09-16-2023 Anion gap [Moles/Vol] 17.2 mmol/L High 6.0-15.0 [facility] Comment on above: Order Comment: Reaso n for Exam Essential (primary) hypertension Performed By: #### L IPID, CMP, TSH3 wRFLX, CBC #### [facility] [address] Serum or plasma high density lipoprotein (HDL) cholesterol measurementOrdered By: Mary Lou Louie on 09-16-2023 Cholesterol in HDL [Mass/Vol] 39 mg/dL Normal 23-[address] [facility] Comment on above: HDL CHOL ATP-III CLA SSIFICATION Cardiovascular RiskHDL > or equal to 60 mg/dL LOWHDL < 40 mg/dL HIGH Order Comment: Reaso n for Exam Essential (primary) hypertension Result Comment: HDL CHOL ATP-III CLASSIFICATION Cardiovascular Risk HDL > or equal to 60 mg/dL LOW HDL < 40 mg/dL HIGH Performed By: #### L IPID, CMP, TSH3 wRFLX, CBC #### [facility] [address] Serum or plasma total choles terol/high density lipoprotein (HDL) cholesterol mass ratOrdered By: Mary Lou Louie on 09-16-2023 Cholesterol.total/Choles terol in HDL [Mass ratio] 3.2 {ratio} Normal <5.[address] [facility] Comment on above: Order Comment: Reaso n for Exam Essential (primary) hypertension Performed By: #### L IPID, CMP, TSH3 wRFLX, CBC #### [facility] [address] [place] [id number] [place] Sodium [Moles/volume] in Ser um or PlasmaOrdered By: Mary Lou Louie on 09-16-2023 Sodium [Moles/Vol] 137 mmol/L Normal 136-145 [facility] Comment on above: Lipemia is present a [...] L IPID, CMP, TSH3 wRFLX, CBC #### [facility] [address] Thyroid Stim Hormone w/Rflxo n 09-16-2023 Thyroid Stim Hormone w/Rflx 1.78 u[iU]/mL Normal 0.45-5.33 [facility] Comment on above: Order Comment: Reaso n for Exam Essential (primary) hypertension Result Comment: PERF ORMED BY: [place] [address] PATHOLOGIST WET CLEANER MACHINE CECE DUNHAM M.D. Performed By: #### L IPID, CMP, TSH3 wRFLX, CBC #### [address] Thyrotropin [Units/volume] i n Serum or PlasmaOrdered By: Mary Lou Louie on 09-16-2023 TSH Qn 1.78 m[IU]/L 0.45-5.[address] [facility] Triglyceride [Mass/volume] i n Serum or PlasmaOrdered By: Mary Lou Louie on 09-16-2023 Triglyceride [Mass/Vol] 81 mg/dL 0-149 F [facility] Comment on above: TRIG ATP III CLASSIF ICATIONTRIG less than 150 mg/dL NormalTRIG 150-199 mg/dL Borderline highTRIG 200-500 mg/dL High TRIG greater than 500 mg/dL Very highStandard traceable to the Center for Disease Conrtrol and Prevention (CDC) test method. Urea nitrogen [Mass/volume] in Serum or PlasmaOrdered By: Mary Lou Louie on 09-16-2023 Urea nitrogen [Mass/Vol] 18 mg/dL Normal 7-[address] [facility] Comment on above: Order Comment: Reaso n for Exam Essential (primary) hypertension Performed By: #### L IPID, CMP, TSH3 wRFLX, CBC #### [place] [address] [place] Albumin [Mass/volume] in Ser um or PlasmaOrdered By: Mary Lou Louie on 05-02-2022 Albumin [Mass/Vol] 3.4 g/dL 3.2-5.5 [facility] Basophils Auto (Bld) [#/Vol] Ordered By: Mary Lou Louie on 05-02-2022 Basophils (Bld) [#/Vol] 0.0 10*3/uL 0.0-0.[address] [facility] Basophils/100 WBC Auto (Bld) Ordered By: Mary Lou Louie on 05-02-2022 Basophils/100 WBC (Bld) 0.4 % . F [facility] Cholesterol [Mass/volume] in Serum or PlasmaOrdered By: Mary Lou Louie on 05-02-2022 Cholesterol [Mass/Vol] 140 mg/dL 140-200 [facility] Comment on above: Chol less than 200 m g/dl low riskChol 201-239 mg/dl borderline riskChol 240 mg/dl and greater high risk Cholesterol in LDL Calc [Mas s/Vol]Ordered By: Mary Lou Louie on 05-02-2022 Cholesterol in LDL [Mass/Vol] 94 mg/dL 0-[address] [facility] Comment on above: LDL ATP III CLASSIFI CATIONLDL less than 100 mg/dL OptimalLDL 100-129 mg/dL Near or above optimalLDL 130-159 mg/dL Borderline highLDL 160-189 mg/dL HighLDL greater than 189 mg/dL Very high Cholesterol in VLDL Calc [Ma ss/Vol]Ordered By: Mary Lou Louie on 05-02-2022 Cholesterol in VLDL [Mass/Vol] 10 mg/dL [facility] Creatinine and Glomerular fi ltration rate.predicted panel (S/P/Bld)Ordered By: Mary Lou Louie on 05-02-2022 Creatinine [Mass/Vol] 1.10 mg/dL 0.64-1.27 [facility] Eosinophils Auto (Bld) [#/Vo l]Ordered By: Mary Lou Louie on 05-02-2022 Eosinophils (Bld) [#/Vol] 0.1 10*3/uL 0.0-0.[address] [facility] Eosinophils/100 WBC Auto (Bl d)Ordered By: Mary Lou Louie on 05-02-2022 Eosinophils/100 WBC (Bld) 1.0 % . [facility] Erythrocyte distribution wid th Auto (RBC) [Ratio]Ordered By: Mary Lou Louie on 05-02-2022 Erythrocyte distribution width (RBC) [Ratio] 15.6 % 12.0-14.[address] [facility] Estimated glomerular filtrat ion rate (GFR) non- AmericanOrdered By: Mary Lou Louie on 05-02-2022 GFR/1.73 sq M.predicted among non-blacks MDRD (S/P/Bld) [Vol rate/Area] > 60 mL/Min [facility] Globulin Calc (S) [Mass/Vol] Ordered By: Mary Lou Louie on 05-02-2022 Globulin (S) [Mass/Vol] 3.7 g/dL F [facility] Hematocrit Auto (Bld) [Volum e fraction]Ordered By: Mary Lou Louie on 05-02-2022 Hematocrit (Bld) [Volume fraction] 48.4 % 38.8-50.[address] [facility] Hemoglobin [Mass/volume] in BloodOrdered By: Mary Lou Louie on 05-02-2022 Hemoglobin (Bld) [Mass/Vol] 15.9 g/dL 13.0-17.[address] [facility] Leukocytes [#/volume] correc vinicio for nucleated erythrocytes in Blood by Automated counOrdered By: Mary Lou Louie on 05-02-2022 WBC corrected for nucl RBC Auto (Bld) [#/Vol] 10.7 10*3/uL 4.1-10.[address] [facility] Lymphocytes Auto (Bld) [#/Vo l]Ordered By: Mary Lou Louie on 05-02-2022 Lymphocytes (Bld) [#/Vol] 2.1 10*3/uL 1.00-4.[address] [facility] Lymphocytes/100 WBC Auto (Bl d)Ordered By: Mary Lou Louie on 05-02-2022 Lymphocytes/100 WBC (Bld) 19.6 % . [facility] MCH Auto (RBC) [Entitic mass ]Ordered By: Mary Lou Louie on 05-02-2022 MCH (RBC) [Entitic mass] 29.2 pg 27.5-35.[address] [facility] MCHC Auto (RBC) [Mass/Vol]Or dered By: Mary Lou Louie on 05-02-2022 MCHC (RBC) [Mass/Vol] 32.9 g/dL 32.5-35.6 [facility] MCV Auto (RBC) [Entitic vol] Ordered By: Mary Lou Louie on 05-02-2022 MCV (RBC) [Entitic vol] 88.6 fL 83.5-101 F [facility] Monocytes Auto (Bld) [#/Vol] Ordered By: Mary Lou Louie on 05-02-2022 Monocytes (Bld) [#/Vol] 0.8 10*3/uL 0.0-0.[address] [facility] Monocytes/100 WBC Auto (Bld) Ordered By: Mary Lou Louie on 05-02-2022 Monocytes/100 WBC (Bld) 7.1 % . F [facility] Neutrophils Auto (Bld) [#/Vo l]Ordered By: Mary Lou Louie on 05-02-2022 Neutrophils (Bld) [#/Vol] 7.7 10*3/uL 1.8-7.[address] [facility] Neutrophils/100 WBC Auto (Bl d)Ordered By: Mary Lou Louie on 05-02-2022 Neutrophils/100 WBC (Bld) 71.9 % . [facility] No Panel InformationOrdered By: Mary Lou Louie on 05-02-2022 Estimated GFR () > 60 mL/Min [facility] Comment on above: GFR estimated refere nce range: According to KDOQI guidelines, <60 ml/min/1.73m2 is sufficient to diagnose a patient with chronic kidney disease. Pharmacy Creatinine Clearance (Chem N/A [facility] Nucleated erythrocytes [Pres ence] in Blood by Automated countOrdered By: Mary Lou Louie on 05-02-2022 Nucleated RBC Auto Ql (Bld) 0.1 /100{WBC} 0-0.[address] [facility] Platelet mean volume Auto (B ld) [Entitic vol]Ordered By: Mary Lou Louie on 05-02-2022 Platelet mean volume (Bld) [Entitic vol] 9.3 fL 6.6-10.[address] [facility] Platelets Auto (Bld) [#/Vol] Ordered By: Mary Lou Louie on 05-02-2022 Platelets (Bld) [#/Vol] 284 10*3/uL 150-[address] [facility] Protein [Mass/volume] in Ser um or PlasmaOrdered By: Mary Lou Louie on 05-02-2022 Protein [Mass/Vol] 7.1 g/dL 6.1-7.9 [facility] RBC Auto (Bld) [#/Vol]Ordere d By: Mary Lou Louie on 05-02-2022 RBC (Bld) [#/Vol] 5.46 10*6/uL 3.90-5.60 [facility] Serum or plasma alanine balderas otransferase measurement without P-5'-P (enzymatic activiOrdered By: Mary Lou Louie on 05-02-2022 ALT No additional P-5'-P [Catalytic activity/Vol] 17 U/L 10-60 [facility] Serum or plasma albumin/glob ulin mass ratioOrdered By: Mary Lou Louie on 05-02-2022 Albumin/Globulin [Mass ratio] 0.9 {ratio} [facility] Serum or plasma alkaline jemal sphatase measurement (enzymatic activity/volume)Ordered By: Mary Lou Louie on 05-02-2022 ALP [Catalytic activity/Vol] 112 U/L 32-[address] [facility] Serum or plasma anion gap de terminationOrdered By: Mary Lou Louie on 05-02-2022 Anion gap [Moles/Vol] 12.5 mmol/L 6.0-15.0 [facility] Serum or plasma aspartate am inotransferase measurement (enzymatic activity/volume)Ordered By: Mary Lou Louie on 05-02-2022 AST [Catalytic activity/Vol] 20 U/L 10-[address] [facility] Serum or plasma calcium juliana urement (mass/volume)Ordered By: Mary Lou Louie on 05-02-2022 Calcium [Mass/Vol] 9.1 mg/dL 8.2-10.2 [facility] Serum or plasma chloride blanca surement (moles/volume)Ordered By: Mary Lou Louie on 05-02-2022 Chloride [Moles/Vol] 106 mmol/L 95-114 [facility] Serum or plasma glucose juliana urement (mass/volume)Ordered By: Mary Lou Louie on 05-02-2022 Glucose [Mass/Vol] 96 mg/dL 70-100 [facility] Comment on above: ADA recommended refe rence rangeRandom Glucose Reference Range is dependent on time and content of last meal. Glucose of more than 200 mg/dL in a nonstressed, ambulatory subject supports the diagnosis of Diabetes Mellitus. Serum or plasma high density lipoprotein (HDL) cholesterol measurementOrdered By: Mary Lou Louie on 05-02-2022 Cholesterol in HDL [Mass/Vol] 35 mg/dL 29-[address] [facility] Comment on above: HDL CHOL ATP-III CLA SSIFICATION Cardiovascular RiskHDL > or equal to 60 mg/dL LOWHDL < 40 mg/dL HIGH Serum or plasma potassium me asurement (moles/volume)Ordered By: Mary Lou Louie on 05-02-2022 Potassium [Moles/Vol] 4.1 mmol/L 3.5-5.1 [facility] Serum or plasma sodium measu rement (moles/volume)Ordered By: Mary Lou Louie on 05-02-2022 Sodium [Moles/Vol] 137 mmol/L 136-146 [facility] Serum or plasma total biliru bin measurement (mass/volume)Ordered By: Mary Lou Louie on 05-02-2022 Bilirubin [Mass/Vol] 0.3 mg/dL 0.3-1.2 [facility] Serum or plasma total carbon dioxide measurement (moles/volume)Ordered By: Mary Lou Louie on 05-02-2022 CO2 [Moles/Vol] 22.6 mmol/L 22.0-30.0 [facility] Serum or plasma total choles terol/high density lipoprotein (HDL) cholesterol mass ratOrdered By: Mary Lou Louie on 05-02-2022 Cholesterol.total/Choles terol in HDL [Mass ratio] 4.0 {ratio} <5.[address] [facility] Serum or plasma urea nitroge n measurement (mass/volume)Ordered By: Mary Lou Louie on 05-02-2022 Urea nitrogen [Mass/Vol] 16 mg/dL 9-[address] [facility] TSH DL <= 0.005 mIU/L QnOrde red By: Mary Lou Louie on 05-02-2022 TSH Qn 2.26 m[IU]/L 0.45-5.[address] [facility] Triglyceride [Mass/volume] i n Serum or PlasmaOrdered By: Mary Lou Louie on 05-02-2022 Triglyceride [Mass/Vol] 53 mg/dL 35-149 F [facility] Comment on above: TRIG ATP III CLASSIF ICATIONTRIG less than 150 mg/dL NormalTRIG 150-199 mg/dL Borderline highTRIG 200-500 mg/dL High TRIG greater than 500 mg/dL Very highStandard traceable to the Center for Disease Conrtrol and Prevention (CDC) test method. WBC Auto (Bld) [#/Vol]Ordere d By: Mary Lou Louie on 05-02-2022 WBC (Bld) [#/Vol] 10.7 10*3/uL 4.1-10.5 [facility] Provider Letteron 05-08-2021 Provider Letter May 08, 2021 May 08, 2021 [facility]AC[facility]TO[facility] [address] [place] [address] JACQUES ANTOINE 1980 Dear _ , You [...] Sincerely, [facility] [address] [place] [address] Normal [facility] ED Note-Physicianon 02-18-20 ED Note-Physician [id number] .[id number]:127 Normal [facility] Lab Reportson 02-17-2021 Lab Reports [id number] .[id number]:127 Normal [facility] RAD - CT Reporton 02-17-2021 RAD - CT Report [id number] .[id number]:127 Normal [facility] CBC AUTO DIFFon 02-03-2021 BASO # 0.1 103/ul Normal 0.0-0.1 [facility] Comment on above: Performed By: #### C BC #### [facility] [address] [place] [address] Dr. Thuan Enriquez Basophils/100 WBC (Bld) 0.5 % Normal 0.2-2.0 [facility] Comment on above: Performed By: #### C BC #### [facility] [address] [place] [address] Dr. Thuan Enriquez EO # 0.2 103/ul Normal 0.0-0.7 [facility] Comment on above: Performed By: #### C BC #### [facility] [address] [place] [address] Dr. Thuan Enriquez Eosinophils/100 WBC (Bld) 1.2 % Normal 0.9-7.0 [facility] Comment on above: Performed By: #### C BC #### [facility] [address] [place] [address] Dr. Thuan Enriquez Erythrocyte distribution width (RBC) [Ratio] 15.5 % Critically high 11.0-15.0 [facility] Comment on above: Performed By: #### C BC #### [facility] [address] [place] [address] Dr. Thuan Enriquez Hematocrit (Bld) [Volume fraction] 46.1 % Normal 42.0-54.0 [facility] Comment on above: Performed By: #### C BC #### [facility] [address] [place] [address] Dr. Thuan Enriquez Hemoglobin (Bld) [Mass/Vol] 15.3 g/dL Normal 14.0-18.0 [facility] Comment on above: Performed By: #### C BC #### [facility] [address] [place] [address] Dr. Thuan Enriquez IG # 0.10 10e3/ul Critically high 0.00-0.03 [facility] Comment on above: Performed By: #### C BC #### [facility] [address] [place] [address] Dr. Thuan Enriquez IG % 0.5 % Normal 0.0-0.5 [facility] Comment on above: Performed By: #### C BC #### [facility] [address] [place] [address] Dr. Thuan Enriquez LYMPH # 2.4 103/ul Normal 1.2-3.8 [facility] Comment on above: Performed By: #### C BC #### [facility] [address] [place] [address] Dr. Thuan Enriquez Lymphocytes/100 WBC (Bld) 18.7 % Critically low 20.5-60.0 [facility] Comment on above: Performed By: #### C BC #### [facility] [address] [place] [address] Dr. Thuan Enriquez MANUAL DIFF REQ NO Normal [facility] Comment on above: Performed By: #### C BC #### [facility] [address] [place] [address] Dr. Thuan Enriquez MCH (RBC) [Entitic mass] 29.5 pg Normal 25.9-34.0 [facility] Comment on above: Performed By: #### C BC #### [facility] [address] [address] [address] Thuan Enriquez MCHC (RBC) [Mass/Vol] 33.2 g/dL Normal 29.9-35.2 [facility] Comment on above: Performed By: #### C BC #### [facility] [address] [place] [address] Dr. Thuan Enriqeuz MCV (RBC) [Entitic vol] 89.0 fL Normal 80.0-94.0 [facility] Comment on above: Performed By: #### C BC #### [facility] [address] [address] [address] Thuan Enriquez MONO # 1.1 103/ul Critically high 0.3-0.8 [facility] Comment on above: Performed By: #### C BC #### [facility] [address] [place] [address] Dr. Thuan Enriquez Monocytes/100 WBC (Bld) 8.6 % Normal 1.7-12.0 [facility] Comment on above: Performed By: #### C BC #### [facility] [address] [place] [address] Dr. Thuan Enriquez NEUT # 9.1 103/ul Critically high 1.4-6.5 [facility] Comment on above: Performed By: #### C BC #### [facility] [address] [place] [address] Dr. Thuan Enriquez Neutrophils/100 WBC (Bld) 70.5 % Normal 43.0-75.0 [facility] Comment on above: Performed By: #### C BC #### [facility] [address] [place] [address] Dr. Thuan Enriquez Platelet mean volume (Bld) [Entitic vol] 10.7 fL Normal 9.5-13.5 [facility] Comment on above: Performed By: #### C BC #### [facility] [address] [place] [address] Dr. Thuan Enriquez PLT 332 103/ul Normal 150-450 [facility] Comment on above: Performed By: #### C BC #### [facility] [address] [place], [place] [address] Dr. Thuan Enriquez RBC 5.18 106/ul Normal 4.70-6.10 [facility] Comment on above: Performed By: #### C BC #### [facility] [id number] Thuan Enriquez WBC 12.8 103/ul Critically high 4.0-11.[address] [facility] Comment on above: Performed By: #### C BC #### [facility] [address] [place], [place] [address] ABD/PELVIS WO CONon [...] GUILLERMO CHAMBERS Date: 2021-02-03 12:08 Normal [facility] ER URINE PROFILEon Bilirubin Ql (U) Negative Normal NEGATIVE [facility] Comment on above: Performed By: #### POOJA GIANGRO #### [facility] [address] [place] [address] Dr. Thuan Enriquez Clarity (U) CLOUDY Abnormal CLEAR [facility] Comment on above: Performed By: #### Sury BLANC UMICRO #### [facility] [address] [place] [address] Dr. Thuan Enriquez Color (U) RED Abnormal YELLOW [facility] Comment on above: Performed By: #### AMPARO GIANGICRO #### [facility] [address] [place] [address] Dr. Thuan CHICAS A micrscopic examination will be performed if indicated. Normal [facility] Comment on above: Performed By: #### POOJA GIANGRO #### [facility] [address] [place] [address] Dr. Thuan Enriquez Glucose Ql (U) Negative Normal NEGATIVE [facility] Comment on above: Performed By: #### POOJA GIANGRO #### [facility] [address] [place] [address] Dr. Thuan Enriquez Hemoglobin Ql (U) LARGE Abnormal NEGATIVE [facility] Comment on above: Performed By: #### POOJA GIANGRO #### [facility] [address] [place] [address] Dr. Thuan Enriquez Ketones Ql (U) Negative Normal NEGATIVE [facility] Comment on above: Performed By: #### POOJA GIANGRO #### [facility] [address] [place] [address] Dr. Thuan Enriquez LEUKOCYTES Negative Normal NEGATIVE [facility] Comment on above: Performed By: #### POOJA GIANGRO #### [facility] [address] [place] [address] Dr. Thuan Enriquez Nitrite Ql (U) Negative Normal NEGATIVE [facility] Comment on above: Performed By: #### AMPARO GIANGICRO #### [facility] [address] [place] [address] Dr. Thuan Enriquez pH (U) 6.0 [pH] Normal 5-9 [facility] Comment on above: Performed By: #### RESHMA GIANG #### [facility] [address] [place] [address] Dr. Thuan Enriquez Protein (U) [Mass/Vol] 30 mg/dL Abnormal NEGAT MONCHO/ TRACE [facility] Comment on above: Performed By: #### RESHMA GIANG #### [facility] [address] [place] [address] Dr. Thuan Enriquez SPEC GRAVITY >=1.030 Abnormal 1.005-<=1.02 5 [facility] Comment on above: Performed By: #### RESHMA GIANG #### [facility] [address] [place] [address] Dr. Thuan Enriquez UR MICRO IND INDICATED Normal [facility] Comment on above: Performed By: #### RESHMA GIANG #### [facility] [address] [place] [address] Dr. Thuan Enriquez Urobilinogen Qn (U) 1.0 {Leo'U}/dL Normal 0.2 - 1. 0 [facility] Comment on above: Performed By: #### RESHMA GIANG #### [facility] [address] [place] [address] Dr. Thuan Enriquez PROF CHEM 8 (BAS METB)on Anion gap [Moles/Vol] 14.6 mmol/L Normal [facility] Comment on above: Performed By: #### B MP #### [facility] [address] [place] [address] Dr. Thuan Enriquez Calcium [Mass/Vol] 8.7 mg/dL Normal 8.4-10.2 [facility] Comment on above: Performed By: #### B MP #### [facility] [address] [place] [address] Dr. Thuan Enriquez Chloride [Moles/Vol] 103 mmol/L Normal 98-107 [facility] Comment on above: Performed By: #### B MP #### [facility] [address] [address] [address] Thuan Enriquez CO2 [Moles/Vol] 22.8 mmol/L Normal 22.0-30.0 [facility] Comment on above: Performed By: #### B MP #### [facility] [address] [address] [address] Thuan Enriquez Creatinine [Mass/Vol] 1.13 mg/dL Normal 0.66-1.25 [facility] Comment on above: Performed By: #### B MP #### [facility] [address] [address] [address] Thuan Enriquez EGFR-AF URUGUAYAN >60 Normal >=60 [facility] Comment on above: Performed By: #### B MP #### [facility] [address] [place] [address] Dr. Thuan Enriquez EGFR-NON AF URUGUAYAN >60 Normal >=60 [facility] Comment on above: Performed By: #### B MP #### [facility] [address] [address] [address] Thuan Enriquez Glucose [Mass/Vol] 120 mg/dL Critically high 74-106 [facility] Comment on above: Performed By: #### B MP #### [facility] [address] [address] [address] Thuan Enriquez Potassium [Moles/Vol] 3.4 mmol/L Normal 3.4-5.0 [facility] Comment on above: Performed By: #### B MP #### [facility] [address] [address] [address] Thuan Enriquez Sodium [Moles/Vol] 137 mmol/L Normal 137-145 [facility] Comment on above: Performed By: #### B MP #### [facility] [address] [place] [address] Dr. Thuan Enriquez Urea nitrogen [Mass/Vol] 15.0 mg/dL Normal 9.0-20.0 [facility] Comment on above: Performed By: #### B MP #### [facility] [address] [address] [address] Thuan Enriquez Urea nitrogen/Creatinine [Mass ratio] 13.3 mg/mg Normal [facility] Comment on above: Performed By: #### B MP #### [facility] [address] [place] [address] Dr. Thuan Enriquez URINE MICROSCOPIC ONLYon BACTERIA TRACE Abnormal NONE SEEN [facility] Comment on above: Performed By: #### E RUR, UMICRO #### [facility] [address] [place] [address] Dr. Thuan Enriquez Bacteria identified Cx Nom (U) NOT INDICATED Normal [facility] Comment on above: Performed By: #### E RUR, UMICRO #### [facility] [address] [place] [address] Dr. Thuan Enriquez CAST NONE SEEN Normal NONE SEEN [facility] Comment on above: Performed By: #### E RUR, UMICRO #### [facility] [address] [place] [address] Dr. Thuan Enriquez Crystals LM Nom (Urine sed) NONE SEEN Normal NONE SEEN [facility] Comment on above: Performed By: #### E RUR, UMICRO #### [facility] [address] [place] [address] Dr. Thuan Enriquez Epithelial cells LM Ql (Urine sed) FEW Abnormal NONE SEEN /RARE [facility] Comment on above: Performed By: #### E RUR, UMICRO #### [facility] [address] [place] [address] Dr. Thuan Enriquez MUCOUS MODERATE Abnormal NONE SEEN [facility] Comment on above: Performed By: #### E RUR, UMICRO #### [facility] [address] [place] [address] Dr. Thuan Enriquez RBC (U) [#/Vol] /uL Abnormal 0-2 [facility] Comment on above: Performed By: #### E RUR, UMICRO #### [facility] [address] [place] [address] Dr. Thuan Enriquez WBC 2-5 Abnormal NONE SEEN [facility] Comment on above: Performed By: #### E RUR, UMICRO #### [facility] [address] [address] [address] Thuan Enriquez Encounters Encounter Date Encounter Type Care Provider Facility Start: 09-16-2023 End: 09-16-2023 ambulatory Mary Lou Louie [facility] Work Phone: Start: 09-16-2023 End: 09-16-2023 Departed Referred BLOWER INSTALLER Mary Lou Louie Work Phone: [facility] Start: 02-11-2023 End: 02-12-2023 ambulatory Frankie Bright MD Facility:[facility] Start: 02-04-2023 End: 02-05-2023 ambulatory Frankie Bright MD Facility:[facility] Start: 05-02-2022 End: 05-02-2022 ambulatory Services Family [facility] Work Phone: [facility] Work Phone: Start: 05-02-2022 End: 05-02-2022 Departed Referred Services [facility] Work Phone: [facility] Start: 01-09-2022 End: 01-10-[address] CRYSTAL STEINER Facility:[facility] Start: 01-02-[address] DOCTOR VICENTE Facility :[facility] Start: 02-03-2021 End: 02-03-2021 ambulatory FEDERICA EARLY Facility:[facility] Payers Date Payer Category Payer Private Health Insurance [id number] 2022 Private Health Insurance 1980 Unknown [id number] .16.84 [id number] 1980 Unknown [id number] .16.84 [id number] 1980 Unknown [id number] .16.84 [id number] 1980 Unknown [id number] .. [id number] 1980 Unknown [id number] 1959 Self-pay 1959 Unknown [id number] Unknown [id number] Social History Date Type Detail Facility Tobacco smoking stat [facility] Unknown if ever smoked [facility] Work Phone: Start: 1980 Sex Assigned At Male F [facility] Start: 04-23-2018 Tobacco smoking stat [facility] Never smoked tobacco (finding) [facility] Consultation note 01-09-2022 Note Date & Type Note Facility 01-09-2022 Note CONSULTATION CONSULTATION DATE: 01/09/2022 CHIEF COMPLAINT: Low back pain, bilateral lower extremity pain. HISTORY OF PRESENT ILLNESS: This is a 41-year-old gentleman, who was referred to us from [facility]. The patient states he stepped out of [...] therapy treatments a few years ago in [place]. The patient's PAST MEDICAL HISTORY / SURGICAL [...] that Mary Lou Louie, nurse practitioner at [facility] has ordered an x-ray of his lumbar spine which is scheduled here at [place]. Subsequent to reviewing the x-ray, we will determine whether the patient would benefit from an MRI prior to being seen and interventional treatment started. The patient has significant pain behavior. One again, the ER consult was offered to the patient. CC: Mary Lou Louie, HEBER [facility] Evaluation note Note Date & Type Note Facility Evaluation note No assessment information availa [facility] Work Phone: Summary Purpose [...] and content) DATE CREATED AUTHOR 07/07/2021 [facility] DATE CREATED AUTHOR AUTHOR'S ORGANIZ ATION 01/14/2022 [facility] DATE CREATED AUTHOR AUTHOR'S ORGANIZ ATION 02/17/2023 [facility] DATE CREATED AUTHOR AUTHOR'S ORGANIZ ATION 09/21/2023 [facility] Care Teams (unrecognized sec tion and content) Team Status: Inactive Member Role Status Dates Services [facility] Primary Care Provider Active GAGE Dumont Attending Provider A ctive Team Status: Active Member Role Status Dates Services [facility] Primary Care Provider Active Team Status: Inactive [...] BE BASED ON THE PRIMARY CLINICAL RECORDS. IS [employer] provides no warranty or guarantee of the accuracy or completeness of information in this document.
[2023-10-04] MEDS: 0.9 % SODIUM CHLORIDE 1,000 ML 100 ML IV ×2 (03:33→11:40)
[2023-10-04] MEDS: HYDRALAZINE HCL 20 MG/ML VIAL 10 MG IVP (03:36)
[2023-10-04] MEDS: ACETAMINOPHEN 325 MG TABLET 650 MG PO ×4 (03:36→23:52)
[2023-10-04] MEDS: ALBUTEROL SULFATE 2.5 MG/3 ML VIAL NEB IH ×4 (05:13→20:32)
[2023-10-04 05:32] LABS: Basophils Percent Auto 0.2 % (0.2-2.0); Eosinophils Percent Auto 0.1 % (0.9-7.0); Hematocrit 43.1 % (42.0-54.0); Hemoglobin 14.2 g/dL (14.0-18.0); Immature Granulocytes Abs Auto 0.08 10^3/uL (0.00-0.03); Immature Granulocytes Pct Auto 0.5 % (0.0-0.5); Lymphocytes Percent Auto 5.9 % (20.5-60.0); Mean Corpuscular HGB Conc 32.9 g/dL (29.9-35.2); Mean Corpuscular Hemoglobin 29.9 pg (25.9-34.0); Mean Corpuscular Volume 90.7 fL (80.0-94.0); Mean Platelet Volume 10.6 fL (9.5-13.5); Monocytes Absolute Auto 1.2 10^3/uL (0.3-0.8); Monocytes Percent Auto 6.9 % (1.7-12.0); Neutrophils Absolute Auto 14.7 10^3/uL (1.4-6.5); Neutrophils Percent Auto 86.4 % (43.0-75.0); Platelet Count 220 10^3/uL (150-450); Red Blood Count 4.75 10^6/uL (4.70-6.10); Red Cell Distribution Width 15.1 % (11.0-15.0)
[2023-10-04 05:40] LABS: Estimated Average Glucose 111 mg/dL; Glycohemoglobin A1C 5.5 % (4.5-6.2)
[2023-10-04 05:58] LABS: Alanine Aminotransferase 24 U/L (16-63); Albumin Globulin Ratio 0.5; Albumin Level 2.6 g/dL (3.4-5.0); Alkaline Phosphatase 95 U/L (46-116); Anion Gap 12.9; Aspartate Amino Transferase 28 U/L (15-37); BUN Creatinine Ratio 8.9; Bilirubin Total 2.1 mg/dL (0.2-1.0); Calcium 8.1 mg/dL (8.5-10.1); Carbon Dioxide 25.4 mmol/L (21.0-32.0); Chloride 99 mmol/L (98-107); Chol HDL Ratio 2.1; Cholesterol 88 mg/dL (<=200); Estimated GFR (African America 41 (>=60); Estimated GFR (Non-African Ame 34 (>=60); Globulin 5.4 g/dL; Glucose 89 mg/dL (74-106); HDL Cholesterol 42 mg/dL (40-60); LDL Cholesterol Calculated 35.6 mg/dL; Potassium 3.3 mmol/L (3.5-5.1); Sodium 134 mmol/L (136-145); Triglycerides 52 mg/dL (<=150); VLDL CHOLESTEROL 10.4 mg/dL
--- NOTE | 2023-10-04 08:29 | PM.HP ---
HPI H&P: HPI History of Present Illness Chief complaint: back pain UROSEPSIS ELEVATED D DIMER Narrative: Patient is a 43 y.o severely morbidly obese white male with past medical history of Sleep apnea on CPAP, Schizophrenia, HTN, Asthma who presented to the ER yesterday with increased mid/lower back pain bilaterally, Left abdominal pain, weakness and reports sleeping most of the day. He also notes fevers and chills. He sees [facility] for his PCP needs. He was also in the ER a few weeks ago and treated for ECOLI UTI with cipro. Since that time he continued to get worse. He says he lays around most days, he doesn't drive or go to the store but has a friend that takes him places if needs to. Last sleep study was august years ago, CPAP and supplies he has been getting from [employer]. He is compliant with his CPAP and home medications. He has no N/V/D just lack of appetite. ER Findings: CT finds as listed below, CT head negative, CTA inconclusive for PE but looks more like asthma inflammatory changes. ABD: hepatic steatosis, cyst, left renal mass and pyelonephritis. WBC's 21.3, temp 99.5, HR 120, Lactate 1.3. At the time of admission exam patient is resting comfortably in bed, he denies any shortness of breath or chest pain. Has 4L NC on currently. He has been having chills with temp of 99. He also has been having urinary frequency. Denies blood. I went through each finding on CT as there were many. Patient did not know about the fatty liver, hepatic cyst. He also did not know about the left renal mass. He has never had GB issues before and i discussed the sludge found. He is aware of Lumbar and thoracic spine findings as he follows with pain management. Discussed getting Echocardiogram today since CTA was inconclusive on PE. Also with RUQ ultrasound to further evaluate the liver and GB, and renal US to further evaluated left renal mass and pyelonephritis. Opioid HPI Opioid Management Most Recent Pain and Opioid Data: Last Pain Scale 9 10/04/23 12:37 Last Pain Assessment 10/04/23 12:00 Last MAR Pain Assessment 10/04/23 12:37 Last ORT Total Score 14 10/04/23 02:55 Last ORT Risk Category High Risk 06/21/24 02:55 Review of Systems ROS Narrative ROS: a complete review of systems were reviewed with patient and are positive as below or listed in History of Chief Complaint. General:fever, chills, night sweats Head: no headache, trauma, visual changes, nausea or vomiting Skin: no reported rashes, itching or sores Eyes: no blurriness of vision Ears: no reported hearing loss, vertigo, earache, or tinnitus Throat: no sore throat, hoarseness, swelling of neck, or tongue pain Heart: no chest pain Lungs:shortness of breath yesterday, no cough GI: no diarrhea or vomiting/nausea, decreased appetite Urinary: urinary urgency, frequency and pain Neuro: no numbness or tingling HEM: no bleeding issues or bruising ENDO: no thyroid problems Psych: no anxiety or depression, schizophrenia [facility] Medical History (Updated 10/04/23 @ 13:01 by Maureen Whiting DO) Sleep apnea treated with continuous positive airway pressure (CPAP) ?G47.30 - Sleep apnea, unspecified (ICD-10) Amputation of foot, left, traumatic ?S98.912A - Complete traumatic amputation of left foot, level unspecified, initial encounter (ICD-10) Lumbar spondylosis ?M47.816 - Spondylosis without myelopathy or radiculopathy, lumbar region (ICD-10) Obesity ?E66.9 - Obesity, unspecified (ICD-10) Hypertension ?I10 - Essential (primary) hypertension (ICD-10) Schizophrenia ?F20.9 - Schizophrenia, unspecified (ICD-10) Anxiety ?F41.9 - Anxiety disorder, unspecified (ICD-10) Depression ?F32.A - Depression, unspecified (ICD-10) Surgical History History of foot surgery ?Z98.890 - Other specified postprocedural states (ICD-10) Social History Within the past year, how often did you have a drink containing alcohol: monthly or less Within the past year, how many standard drinks containing alcohol did you have on a typical day: 10 or more Within the past year, how often did you have six or more drinks on one occasion: monthly Total score: 10 Score interpretation: A score of 4 or more indicates drinking is likely to affect patient's safety. Do you use any of these nicotine containing products: smokeless tobacco Non-prescribed substance use: cannabis (any form) Non-prescribed substance use details: smokes marijuana approx 4-5 days ago Known occupational exposures/hazards: No Highest level of school completed/degree received: GED or equivalent Do you want help with school or training: No Are you now , , , , never or living with a partner: never In a typical week, how many times do you talk on the telephone with family, friends, or neighbors: 3 or more times per week How often do you get together with friends or relatives: 3 or more times per week How often do you attend confucianist or presybeterian services: never Do you belong to any clubs or organizations such as confucianist groups unions, [employer] or athletic groups, or school groups: no Total score: 1 Score interpretation: A score of less than or equal to 1 indicates the most socially isolated. Little interest or pleasure in doing things: several days Feeling down, depressed, or hopeless: several days Feel stressed/tense/nervous/anxious/difficulty sleeping: rather much Life stressors: other Life stressor details: Health issues, living arrangements Do you think of yourself as: straight/heterosexual Gender Identity: male Meds Home Medications and Allergies Home Medications ?Medication ?Instructions ?Recorded ?Confirmed ?Type amlodipine 10 mg tablet 10 mg PO DAILY #10 tabs 09/06/23 10/03/23 Rx valsartan 320 1 tab PO DAILY #10 tabs 09/06/23 10/03/23 Rx mg-hydrochlorothiazide 25 mg tablet albuterol sulfate 90 mcg/actuation 2 puff inhalation Q4H PRN 10/03/23 10/04/23 History aerosol inhaler shortness of breath or wheezing brexpiprazole 1 mg tablet (Rexulti) 1 mg PO DAILY 10/03/23 10/04/23 History cetirizine 10 mg tablet 10 mg PO DAILY 10/03/23 10/04/23 History duloxetine 60 mg capsule,delayed 60 mg PO BID 10/03/23 10/04/23 History release methocarbamol 500 mg tablet 500 mg PO Q6H PRN spasms 10/03/23 10/04/23 History topiramate 50 mg tablet 50 mg PO DAILY 10/03/23 10/04/23 History Allergies Allergy/AdvReac Type Severity Reaction Status Date / Time No Known Drug Allergies Allergy Verified 10/03/23 21:43 Exam Narrative Exam Narrative: General: Patient is alert, and oriented to person, place and time with normal affect, proper hygiene, morbid obesity Skin: no visible rashes, or ulcers Head: atraumatic, acephalic Eyes: PERRLA, no nystagmus present, conjunctiva clear, no scleral icterus Ears: normal Tympanic Membrane, normal gross auditory acuity Nose: symmetric, no discharge, no maxillary or frontal sinus tenderness Mouth/Throat: no erythema, exudate, or tonsillar enlargement, normal dentition Neck: no masses palpated, normal thyroid Heart: Normal rate and rhythm, no murmurs/rubs/gallops Lungs: no audible wheezes, crackles and normal breath sounds all lung oakes Abdomen: Normal audible bowel sounds, no distension, No palpable masses, no organomegaly, diffuse tenderness to palpation of the left side of abdomen Musculoskeletal: no swelling bilateral lower extremities, patient with all toes missing from the 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 foot 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 Neuro: CN II-X grossly intact Constitutional Vital Signs, click to edit/add: Last Vital Signs Temp 99.9 F 10/04/23 05:28 Pulse 108 H 10/04/23 08:04 Resp 22 H 10/04/23 06:24 BP 142/74 H 10/04/23 04:39 Pulse Ox 88 L 10/04/23 08:04 O2 Del Method CPAP 10/04/23 06:24 O2 Flow Rate 4 10/04/23 06:24 Results Labs Labs: Short CBC 10/03/23 10/04/23 Range/Units 21:50 04:23 WBC 21.3 H 17.0 H (4.0-11.0) 10^3/uL Hgb 15.1 14.2 (14.0-18.0) g/dL Hct 44.9 43.1 (42.0-54.0) % Plt Count 272 220 (150-450) 10^3/uL BMP 10/03/23 10/04/23 21:50 04:23 Sodium 132 L 134 L Potassium 3.0 L 3.3 L Chloride 98 99 Carbon Dioxide 22.6 25.4 BUN 18.0 19.0 H Creatinine 1.89 H 2.13 H Glucose 111 H 89 Calcium 8.7 8.1 L Liver Function 10/03/23 10/04/23 Range/Units 21:50 04:23 Total Bilirubin 1.9 H 2.1 H (0.2-1.0) mg/dL AST 26 28 (15-37) U/L ALT 26 24 (16-63) U/L Alkaline Phosphatase 104 95 (46-116) U/L Albumin 3.0 L 2.6 L (3.4-5.0) g/dL Urine 10/04/23 Range/Units 00:56 Urine Color Yellow (YELLOW) Urine Clarity Clear (CLEAR) Urine pH 6.0 (5.0-9.0) Ur Specific Weed 1.010 (1.005-1.025) Urine Protein 100 A (NEG/TRACE) mg/dL Urine Glucose (UA) Negative (NEGATIVE) mg/dL Assessment and Plan Assessment and Plan (1) Pyelonephritis of left kidney: Assessment and Plan: Patient with elevation of BUN and CR, last Urine culture was positive for Ecoli. Continue Rocephin IV but at 1gram BID. Awaiting new blood and cultures. Will check US renal today. (2) Sepsis: Assessment and Plan: secondary to #1 with renal involvement. Tachycardic, febrile and leukocytosis. Normal lactate, cultures pending, I am continuing on Rocephin but going to place on additional Levaquin until cultures resulted. Qualifiers: Acute renal failure type: unspecified Sepsis acute organ dysfunction status: with acute organ dysfunction Sepsis type: sepsis due to unspecified organism Severe sepsis acute organ dysfunction type: acute renal failure Severe sepsis shock status: without septic shock Qualified Code(s): A41.9 - Sepsis, unspecified organism; R65.20 - Severe sepsis without septic shock; N17.9 - Acute kidney failure, unspecified (3) MOHAN (acute kidney injury): Assessment and Plan: most likely ATN from sepsis and pyelo but also received contrast for CTA. continue IVF NS @100, avoid nephrotoxic medications. (4) Acute respiratory failure with hypoxia: Assessment and Plan: Patient with 88% while on CPAP, CTA not definitive for PE, check ECHO, proBNP normal. Could be from uncontrolled sleep apnea, Obesity related hypoventilation syndrome, PE less likely. Echo today should help evaluate pulmonary pressures. (5) Hypokalemia: Assessment and Plan: continue daily checks and replace as indicated. Holding home Valsartan/hctz (6) Left renal mass: Assessment and Plan: as seen on CT, will start with US to further evaluate (7) Hepatic steatosis: Assessment and Plan: Lipid panel within normal limits, check RUQ ultrasound, patient NPO, normal liver enzymes and bilirubin (8) Hepatic cyst: Assessment and Plan: check US, has increased in size to prior study 2020 (9) Gallbladder calculus without cholecystitis: Assessment and Plan: RUQ ultrasound, currently not having any symptoms of acute cholecystitis Qualifiers: Biliary obstruction: without biliary obstruction Qualified Code(s): K80.20 - Calculus of gallbladder without cholecystitis without obstruction (10) Hypertension: Assessment and Plan: continue home amlodipine, monitor. Holding valsartan/hctz due to renal impairment Qualifiers: Hypertension type: primary hypertension Qualified Code(s): I10 - Essential (primary) hypertension (11) Lumbar spondylosis: Assessment and Plan: follows with pain management, no acute issue (12) Obesity: Assessment and Plan: would benefit from significant weight loss Qualifiers: Body mass index: BMI 60.0-69.9 Obesity classification: adult class 3 (BMI >= 40) Obesity type: due to excess calories Serious obesity comorbidity presence: with serious comorbidity Qualified Code(s): E66.01 - Morbid (severe) obesity due to excess calories; Z68.44 - Body mass index [BMI] 60.0-69.9, adult (13) Schizophrenia: Assessment and Plan: continue home medications Qualifiers: Schizophrenia type: unspecified Qualified Code(s): F20.9 - Schizophrenia, unspecified (14) Amputation of foot, left, traumatic: Assessment and Plan: happened from trauma at 18 months of age. Qualifiers: Encounter type: subsequent encounter Qualified Code(s): S98.912D - Complete traumatic amputation of left foot, level unspecified, subsequent encounter (15) Sleep apnea treated with continuous positive airway pressure (CPAP): Assessment and Plan: Patient will need updated sleep study as outpatient but will place on our cpap and have respiratory titrate as feel settings inaccurate. Will get ABG if oxygen saturations continue to decline on cpap. (16) Elevated d-dimer: Assessment and Plan: CTA not definitive, patient with Mohan but with hypoxia, Will check Echo, continue therapeutic lovenox. Plan Patient is a full code Patient is on therapeutic Lovenox for possible PE Patient is inpatient status, Patient is critical given the severity of symptoms and decline in oxygen status he was transferred to ICU today Critical Care time was 75 minutes.
[2023-10-04] MEDS: TOPIRAMATE 25 MG TABLET 50 MG PO (08:49)
[2023-10-04] MEDS: AMLODIPINE BESYLATE 5 MG TABLET 10 MG PO (08:49)
--- NOTE | 2023-10-04 08:51 | US_ITS ---
The [address] [address] Patient Name: SALVADOR ANTOINE MRN: [id number] date: 1980 Sex: M Assigned Patient Location: ICU Current Patient Location: ICU Accession/Order Number: [id number] Exam Date: 10/04/2023 11:10 Report Date: 10/04/2023 12:47 At the request of: BROOKS CHENG Procedure: US renal bladder EXAMINATION: US renal bladder HISTORY: please correlate with CT, left renal mass, pylelo COMPARISON: 10/04/2023 TECHNIQUE: Ultrasound examination was performed of the bladder. FINDINGS: Right Kidney: Normal in size, contour and echotexture Height: 7.42 cm Length: 12.18 cm Width: 5.98 cm Left Kidney: Normal in size and contour. Identified along the upper pole is a 3.1 x 2.8 x 2.6 cm mass Height: 6.14 cm Length: 12.47 cm Width: 6.63 cm Urinary bladder wall measures 6 mm, thickened. Prevoid volume 848 mL. Post void volume 252 mL Ureteral jets: Visualized bilaterally US/US renal bladder IMPRESSION: 3.1 cm left renal cortical mass, indeterminate Large post void urinary bladder residual 252 mL Electronically authenticated by: LIZET KINNEY Date: 10/04/2023 12:47
--- NOTE | 2023-10-04 08:51 | US_ITS ---
The [address] [address] Patient Name: SALVADOR ANTOINE MRN: [id number] date: 1980 Sex: M Assigned Patient Location: ICU Current Patient Location: ICU Accession/Order Number: [id number] Exam Date: 10/04/2023 11:40 Report Date: 10/04/2023 12:49 At the request of: BROOKS CHENG Procedure: US right upper quadrant EXAM: US right upper quadrant HISTORY: please correlate with CT: Hepatic mass, steatosis COMPARISON: None. TECHNIQUE: Grayscale, color and Doppler FINDINGS: The liver is enlarged in size measuring 23.3 cm in length. Ill-defined left hepatic lobe is an hypoechogenic mass measuring 4.4 x 3.7 x 4.5 cm, no definite internal blood flow. Hepatopedal flow in the main portal vein. The gallbladder wall measures 2.9 mm, normal. No pericholecystic fluid. Negative sonographic Rivera sign. Common duct measures 6.1 mm. Layering hyperdensity within the gallbladder likely sludge. The right kidney is normal measuring 4.5 x 5.3 x 7.4 cm Limited exam due to patient body habitus US/US right upper quadrant IMPRESSION: 4.5 cm left hepatic lobe mass, favor a complex cyst : Moderate sludge with no evidence of acute cholecystitis Electronically authenticated by: LIZET KINNEY Date: 10/04/2023 12:49
--- NOTE | 2023-10-04 08:54 | CA_ITS ---
Patient Name: SALVADOR ANTOINE MR#: [id number] : 1980 Exam Date: 10/04/2023 Ordering Doctor: BROOKS CHENG . ECHOCARDIOGRAM REPORT PROCEDURE: CA ECHO DOPPLER COMPLETE INDICATIONS: hypoxia, sleep apnea, evaluation for pulmonary htn COMPARISON: None. DESCRIPTION: COMPLETE ECHOCARDIOGRAM Real-time transthoracic echocardiography with 2D, M-mode, spectral and color flow Doppler performed. QUALITY: Technically difficult due to patients condition. 71 , 446#, 139/89 LEFT VENTRICLE: Normal chamber size. Moderate concentric left ventricular hypertrophy. Normal systolic function. LV EF: Normal left ventricular ejection fraction, (>55%). DIASTOLIC: Normal diastolic function. ATRIAL SEPTUM: LEFT ATRIUM: Normal chamber size. RIGHT ATRIUM: Mild dilatation. RIGHT VENTRICLE: Normal chamber size. Normal right ventricular systolic function. TRICUSPID VALVE: Normal mobility and thickness. No stenosis with no regurgitation. MITRAL VALVE: Normal mobility and thickness. There is no mitral annular calcification. No mitral regurgitation. AORTIC VALVE: Normal trileaflet appearance. No visible sclerosis. Normal leaflet mobility. No aortic regurgitation. AORTIC ROOT: Normal diameter and appearance. PULMONIC VALVE: Not well visualized. No stenosis. No regurgitation. PERICARDIUM: No evidence of pericardial effusion. IVC: Not well visualized. PLEURA: CONCLUSION: 1. Moderate concentric left ventricular hypertrophy with normal systolic function. LVEF is estimated at 60%. 2. Normal right ventricular size and systolic function. 3. No significant valvular dysfunction. 4. Poor sound transmission reduces the diagnostic accuracy of the test. Adult Echocardiography Procedure Report Left Ventricle LVEDD (3.7 - 5.6 cm): 4.87 cm LVESD (2.2 - 4.0 cm): 3.26 cm LVIVS thickness (0.6 - 1.2 cm): 1.43 cm LVPW thickness (0.5 - 1.0 cm): 1.44 cm e': 0.15 m/s E - e': 5.49 LVOT Max Gradient: 3.89 mm[Hg] LVOT Area (cm2): 0.99 m/s Peak Velocity (LVOT): 0.99 m/s LVOT Diameter 2.75 cm Left Atrium LA Volume Index (2D A2C): 24.28 ml/m2 Left Atrium Systolic Dimension: 4.33 cm Mitral Valve MV E to A Ratio: 1.03 Mitral Valve A-Wave Peak Velocity: 0.80 m/s Mitral Valve E-Wave Peak Velocity: 0.82 m/s Right Ventricle Aorta AO Root Diam: 3.52 cm Aortic Valve AoV Area (Peak Maninder): 5.08 cm2, 5.08 cm2 Peak Velocity(Antegrade Flow): 1.15 m/s Peak Gradient(Antegrade Flow): 5.31 mm[Hg] Tricuspid Valve Pulmonic Valve Peak Velocity: 0.79 m/s Peak Gradient: 2.68 mm[Hg], 2.31 mm[Hg] Right Atrium Right Atrium Systolic Pressure: 61.26 ml, 61.26 ml Dictated by: Tirso Puga M.D. on 10/04/2023 at 13:38 Approved by: Tirso Puga M.D. on 10/04/2023 at 13:41
--- NOTE | 2023-10-04 09:23 | PC.NURSE ---
0910 Pt status discussed with hospitalist. order to transfer to ICU. Report called to Patricia ARMENTA . Transferred per bed with oxygen [address]
[2023-10-04] MEDS: BUDESONIDE 0.5 MG/2 ML AMPULE NEB IH ×2 (10:58→20:32)
--- NOTE | 2023-10-04 11:13 | CM.NOTE ---
Rounds made with Dr. Whiting. Dr. Whiting reviews CT and labs with Jacques. Also reviews plan of care for today-medication changes and Ultrasound. Jacques verbalzises understanding.
[2023-10-04] MEDS: POTASSIUM CHLORIDE 10 MEQ ER TABLET 20 MEQ PO ×2 (11:38→20:16)
[2023-10-04] MEDS: CEFTRIAXONE 1,000 MG in 0.9 % SODIUM CHLORIDE 50 ML 100 MG IV ×2 (11:38→23:18)
[2023-10-04] MEDS: DULOXETINE HCL 60 MG CAPSULE.DR PO ×2 (11:39→20:15)
[2023-10-04] MEDS: ENOXAPARIN SODIUM 100 MG/ML SYRINGE 150 MG SUBQ ×2 (11:40→20:15)
[2023-10-04 13:45] LABS: ABG PCO2 33.7 mmHg (35.0-45.0); Base Excess ABG -3.5 mmol/L (-2.0-2.0); HCO3 ABG 21.2 mmol/L (22.0-26.0); pH ABG 7.406 (7.350-7.450)
[2023-10-04 13:46] LABS: Allen Test POSITIVE (POSITIVE); Liters per Minute 4; O2 Mode NASAL CANNULA; Oxygen Saturation ABG 89.7 %; Puncture Site R RADIAL
[2023-10-04 13:48] LABS: PO2 ABG 52.5 mmHg (80.0-100.0)
[2023-10-04] MEDS: MORPHINE SULFATE 2 MG/ML SYRINGE IV (13:55)
[2023-10-04] MEDS: KETOROLAC TROMETHAMINE 30 MG/ML VIAL IVP (14:52)
[2023-10-04] MEDS: LEVOFLOXACIN IN DEXTROSE 5 % 500 MG/100 ML PIGGYBACK 100 MG IV (15:15)
[2023-10-04 15:56] LABS: Lactate/Lactic Acid 1.8 mmol/L (0.4-2.0)
[2023-10-04] MEDS: LACTATED RINGER'S SOLUTION 1,000 ML 200 ML IV ×2 (16:16→20:27)
[2023-10-04 18:46] LABS: A. calcoaceticus-baumannii Cpx NOT DETECTED (NOT DETECTE); Bacteroides fragilis NOT DETECTED (NOT DETECTE); Candida albicans NOT DETECTED (NOT DETECTE); Candida auris NOT DETECTED (NOT DETECTE); Candida glabrata NOT DETECTED (NOT DETECTE); Candida krusei NOT DETECTED (NOT DETECTE); Candida parapsilosis NOT DETECTED (NOT DETECTE); Candida tropicalis NOT DETECTED (NOT DETECTE); Cryptococcus neoformans/gattii NOT DETECTED (NOT DETECTE); Enterobacter cloacae complex NOT DETECTED (NOT DETECTE); Enterobacterales NOT DETECTED (NOT DETECTE); Enterococcus faecalis NOT DETECTED (NOT DETECTE); Enterococcus faecium NOT DETECTED (NOT DETECTE); Haemophilus influenzae NOT DETECTED (NOT DETECTE); Klebsiella aerogenes NOT DETECTED (NOT DETECTE); Klebsiella pneumoniae group NOT DETECTED (NOT DETECTE); Listeria monocytogenes NOT DETECTED (NOT DETECTE); Neisseria meningitidis NOT DETECTED (NOT DETECTE); Proteus spp. NOT DETECTED (NOT DETECTE); Pseudomonas aeruginosa NOT DETECTED (NOT DETECTE); Salmonella spp. NOT DETECTED (NOT DETECTE); Serratia marcescens NOT DETECTED (NOT DETECTE); Staphylococcus lugdunensis NOT DETECTED (NOT DETECTE); Stenotrophomonas maltophilia NOT DETECTED (NOT DETECTE); Streptococcus agalactiae NOT DETECTED (NOT DETECTE); Streptococcus pneumoniae NOT DETECTED (NOT DETECTE); Streptococcus pyogenes NOT DETECTED (NOT DETECTE); Streptococcus spp. NOT DETECTED (NOT DETECTE)
[2023-10-04 20:12] LABS: Source BLOOD
[2023-10-04 20:13] LABS: Staphylococcus epidermidis DETECTED (NOT DETECTE); Staphylococcus spp. DETECTED (NOT DETECTE)
[2023-10-05] VITALS (62 sets, daily range): BP systolic 94–160; BP diastolic 55–93; PULSE 87–157; RESP 16; TEMP 36.4–38.6; O2SAT 85–98
[2023-10-05] MEDS: LACTATED RINGER'S SOLUTION 1,000 ML 200 ML IV ×3 (01:40→17:32)
[2023-10-05] MEDS: LIDOCAINE 2% JELLY 10 ML UR (03:48)
[2023-10-05 04:58] LABS: Basophils Percent Auto 0.1 % (0.2-2.0); Hemoglobin 13.7 g/dL (14.0-18.0); Immature Granulocytes Abs Auto 0.13 10^3/uL (0.00-0.03); Immature Granulocytes Pct Auto 0.6 % (0.0-0.5); Lymphocytes Absolute Auto 0.4 10^3/uL (1.2-3.8); Lymphocytes Percent Auto 1.8 % (20.5-60.0); Mean Corpuscular HGB Conc 33.4 g/dL (29.9-35.2); Mean Corpuscular Hemoglobin 29.9 pg (25.9-34.0); Mean Corpuscular Volume 89.5 fL (80.0-94.0); Mean Platelet Volume 11.4 fL (9.5-13.5); Monocytes Percent Auto 9.4 % (1.7-12.0); Neutrophils Absolute Auto 18.4 10^3/uL (1.4-6.5); Neutrophils Percent Auto 88.1 % (43.0-75.0); Platelet Count 172 10^3/uL (150-450); Red Blood Count 4.58 10^6/uL (4.70-6.10); Red Cell Distribution Width 15.4 % (11.0-15.0); White Blood Count 20.8 10^3/uL (4.0-11.0)
[2023-10-05] MEDS: ALBUTEROL SULFATE 2.5 MG/3 ML VIAL NEB IH (05:12)
[2023-10-05 05:27] LABS: Alanine Aminotransferase 26 U/L (16-63); Albumin Globulin Ratio 0.4; Albumin Level 2.2 g/dL (3.4-5.0); Alkaline Phosphatase 78 U/L (46-116); Anion Gap 14.9; Aspartate Amino Transferase 33 U/L (15-37); BUN Creatinine Ratio 9.7; Bilirubin Total 2.1 mg/dL (0.2-1.0); Carbon Dioxide 21.6 mmol/L (21.0-32.0); Chloride 101 mmol/L (98-107); Estimated GFR (African America 37 (>=60); Estimated GFR (Non-African Ame 30 (>=60); Globulin 5.2 g/dL; Glucose 119 mg/dL (74-106); Potassium 3.5 mmol/L (3.5-5.1); Sodium 134 mmol/L (136-145); Total Protein 7.4 g/dL (6.4-8.2)
[2023-10-05] MEDS: ACETAMINOPHEN 325 MG TABLET 650 MG PO (06:00)
--- NOTE | 2023-10-05 08:34 | P.PN_ITS ---
Progress Note: Subjective Subjective Interval history: Talked with patient while wearing BiPAP, no new issues. Breathing he is at was slightly better. Exam Constitutional Vital Signs, click to edit/add: Last Vital Signs Temp 98.9 F 10/05/23 06:00 Pulse 105 H 10/05/23 06:00 Resp 30 H 10/05/23 06:00 BP 111/64 10/05/23 06:00 Pulse Ox 94 L 10/05/23 06:00 O2 Del Method BIPAP 10/05/23 06:00 O2 Flow Rate 4 10/04/23 21:15 FiO2 35 10/05/23 05:12 Documenting provider has reviewed patient's vital signs: yes Common normals: apparent distress (Moderate respiratory distress) Chest Common normals: inspection of chest normal, palpation of chest normal and i nspection of breasts normal Respiratory Common normals: no use of accessory muscles and clear to auscultation bilaterally; abnormal respiratory effort (Moderate respiratory distress) Cardio Common normals: regular rhythm; irregular rate Rate: tachycardic GI Common normals: Normal to inspection, nondistended, normoactive bowel sounds present and soft to palpation; tender Palpation: tender Details: RUQ Extremity Common normals: normal to inspection, full ROM and no clubbing, cyanosis or edema Progress Note: Objective Labs Labs: Short CBC 10/05/23 Range/Units 03:50 WBC 20.8 H (4.0-11.0) 10^3/uL Hgb 13.7 L (14.0-18.0) g/dL Hct 41.0 L (42.0-54.0) % Plt Count 172 (150-450) 10^3/uL BMP 10/05/23 03:50 Sodium 134 L Potassium 3.5 Chloride 101 Carbon Dioxide 21.6 BUN 23.0 H Creatinine 2.37 H Glucose 119 H Calcium 8.0 L Liver Function 10/05/23 Range/Units 03:50 Total Bilirubin 2.1 H (0.2-1.0) mg/dL AST 33 (15-37) U/L ALT 26 (16-63) U/L Alkaline Phosphatase 78 (46-116) U/L Albumin 2.2 L (3.4-5.0) g/dL Progress Note: A&P Assessment and Plan (1) Pyelonephritis of left kidney: (2) Sepsis: Qualifiers: Acute renal failure type: unspecified Sepsis acute organ dysfunction status: with acute organ dysfunction Sepsis type: sepsis due to unspecified organism Severe sepsis acute organ dysfunction type: acute renal failure Severe sepsis shock status: without septic shock Qualified Code(s): A41.9 - Sepsis, unspecified organism; R65.20 - Severe sepsis without septic shock; N17.9 - Acute kidney failure, unspecified (3) MOHAN (acute kidney injury): (4) Acute respiratory failure with hypoxia: (5) Hypokalemia: (6) Left renal mass: (7) Hepatic steatosis: (8) Hepatic cyst: (9) Gallbladder calculus without cholecystitis: Qualifiers: Biliary obstruction: without biliary obstruction Qualified Code(s): K80.20 - Calculus of gallbladder without cholecystitis without obstruction (10) Hypertension: Qualifiers: Hypertension type: primary hypertension Qualified Code(s): I10 - Essential (primary) hypertension (11) Lumbar spondylosis: (12) Obesity: Qualifiers: Body mass index: BMI 60.0-69.9 Obesity classification: adult class 3 (BMI >= 40) Obesity type: due to excess calories Serious obesity comorbidity presence: with serious comorbidity Qualified Code(s): E66.01 - Morbid (severe) obesity due to excess calories; Z68.44 - Body mass index [BMI] 60.0-69.9, adult (13) Schizophrenia: Qualifiers: Schizophrenia type: unspecified Qualified Code(s): F20.9 - Schizophrenia, unspecified (14) Amputation of foot, left, traumatic: Qualifiers: Encounter type: subsequent encounter Qualified Code(s): S98.912D - Complete traumatic amputation of left foot, level unspecified, subsequent encounter (15) Sleep apnea treated with continuous positive airway pressure (CPAP): (16) Elevated d-dimer: Plan Fever, respiratory distress, sinus tachycardia, positive procalcitonin, acute kidney injury, leukocytosis secondary to pyelonephritis of left kidney resulting in severe sepsis. Fever spike again yesterday. Adjusted antibiotics today. Blood cultures should be finalized later today or tomorrow. Continue with fluid resuscitation. Patient has no peripheral edema. With acute kidney injury worse today, continue fluid resuscitation MOHAN (acute kidney injury): Due to sepsis and complicated by IV contrast. Continue to monitor. Continue with fluid resuscitation as outlined above Acute hypoxic respiratory failure requiring BiPAP. CTA was not definitive on pulmonary embolism. BNP and troponin were negative. Consider repeat BNP in AM. Try to wean off of BiPAP today. [id number] Renal mass-repeat testing as an outpatient Fatty liver disease with mild tenderness right upper quadrant, ultrasound not consistent with acute cholecystitis but is currently on antibiotics. Hepatic cyst: Follow-up as an outpatient Gallbladder calculus without cholecystitis: If pain becomes worse, consider repeat testing Hypertension: By history-concern for watching for possible hypotension secondary to the severe sepsis as outlined above Lumbar spondylosis: Continue with pain medication Obesity: Morbid obesity-diet management Schizophrenia: Appears fairly stable, continue to monitor Amputation of foot, left, traumatic: Continue to monitor Sleep apnea treated with continuous positive airway pressure maintain at sleep, hoping to wean to nasal cannula later today Elevated d-dimer: CTA not definitive, but now with significant hematuria so we will hold off on blood thinners Severe protein calorie malnutrition-diet management Hematuria likely secondary to the infection but mass is a potential etiology as well, we will hold off on blood thinners Plan Admission status: Patient with severe sepsis and acute hypoxic respiratory failure secondary to acute pyelonephritis. Medically necessary treatment will span 2 midnights. Inpatient status. Critical Care time was 75 minutes with assessing patient, discussing care with nursing staff, coordinating medications.. Urinary Catheter Management Urinary Catheter Management Urethral: Cath placed during this visit: yes Urethral indwelling: Yes Reason for continuing: acute urinary retention Insertion date: 10/05/23 Insertion time: 03:30
[2023-10-05] MEDS: POTASSIUM CHLORIDE 10 MEQ ER TABLET 20 MEQ PO ×2 (09:14→20:51)
[2023-10-05] MEDS: TOPIRAMATE 25 MG TABLET 50 MG PO (09:15)
[2023-10-05] MEDS: AMLODIPINE BESYLATE 5 MG TABLET 10 MG PO (09:15)
[2023-10-05] MEDS: DULOXETINE HCL 60 MG CAPSULE.DR PO ×2 (09:15→20:52)
[2023-10-05] MEDS: IPRATROPIUM/ALBUTEROL SULFATE 3 ML AMPUL.NEB IH ×3 (11:07→19:31)
[2023-10-05] MEDS: BUDESONIDE 0.5 MG/2 ML AMPULE NEB IH ×2 (11:07→23:00)
[2023-10-05] MEDS: MORPHINE SULFATE 2 MG/ML SYRINGE IV ×2 (11:30→17:32)
[2023-10-05 11:55] LABS: mecA/C NOT DETECTED (NOT DETECTE)
[2023-10-05] MEDS: PIPERACILLIN SODIUM/TAZOBACTAM 3.375 GM in 0.9 % SODIUM CHLORIDE 50 ML IV ×2 (11:56→19:23)
--- NOTE | 2023-10-05 13:58 | PC.NURSE ---
11:00 RT Sim in with patient, Patient taken off BIPap and placed on high flow NC at 11L, Patient SP02 dropped to 82%, Placed back on the Bipap, settings 14/7 via 35%. Patient RR at 44 and diaphoretic. Patient stated he was in pain 8/10 in his lower back. BIpap increased to 14/7 via 50%. Patient encouraged to breath slowly while wearing the mask. O2 sat is 94% Patient given Morphine PRN for lower back pain. Dynamic Access begins PICC insertion at 11:22. Patient becomes diaphoretic and complains of being hot. Axillary temperature taken, 101.6. 12:00 Patient states that he is having a panic attack. HR 135, BP 160/93 RR 40. 12:03 Dr. Meza notified and states he will put an order in shortly. Patient is being coached by nurse to breath to alleviate anxiety. Picc insertion completed at 12:10. Patient sits up at the end of the bed. Ice and fan provided. Patient able to calm down and lower his RR to 24. Nurse put patient back on High flow NC at 15 L and educated on nasal breathing. BP 118/62, RR 22, HR 109, O2Sat 94%. Patient able to stand and walk to the chair, X1 minimal assist. Patient O2sat holding above 91%. Full bed change, Tele-electrodes changed, gown changed. Patient stood and walked back to the bed unassisted to lay down. Patient adjusted to the bed, given the call light. Nurse consulted with RT Montemaoyr and placed back on BIpap while sleeping. Settings 14/7 via 40%. Patients O2sat 91% while sleeping.
[2023-10-05] MEDS: LEVOFLOXACIN IN DEXTROSE 5 % 500 MG/100 ML PIGGYBACK 100 MG IV (14:56)
[2023-10-05] MEDS: 0.9 % SODIUM CHLORIDE 1,000 ML 500 ML IV (14:57)
[2023-10-05] MEDS: ACETAMINOPHEN 500 MG TABLET 1000 MG PO (19:24)
--- NOTE | 2023-10-05 22:14 | XR_ITS ---
The [address] [address] Patient Name: SALVADOR ANTOINE MRN: [id number] date: 1980 Sex: M Assigned Patient Location: ICU Current Patient Location: ICU Accession/Order Number: [id number] Exam Date: 10/05/2023 22:20 Report Date: 10/05/2023 23:50 At the request of: LAURA ROCHE Procedure: XR chest 1V EXAM: XR chest 1V HISTORY: Increased heart rate COMPARISON: Chest radiograph dated 10/03/2023. TECHNIQUE: One view of the chest was obtained. FINDINGS: The cardiac silhouette is enlarged. There are mixed interstitial and airspace opacities throughout both lungs. There is no significant pneumothorax or pleural effusion. No acute osseous abnormality is seen. A right upper extremity PICC is noted. XR/XR chest 1V IMPRESSION: 1. Enlarged cardiac silhouette with mixed interstitial and airspace opacities that could represent pulmonary edema and/or multifocal pneumonia. Electronically authenticated by: Ann CARMEN Date: 10/05/2023 23:50
[2023-10-05] MEDS: FUROSEMIDE 20 MG/2 ML VIAL IVP (22:39)
[2023-10-05 22:50] LABS: Alanine Aminotransferase 18 U/L (16-63); Albumin Globulin Ratio 0.4; Albumin Level 1.7 g/dL (3.4-5.0); Alkaline Phosphatase 65 U/L (46-116); Aspartate Amino Transferase 32 U/L (15-37); BUN Creatinine Ratio 10.2; Bilirubin Total 1.2 mg/dL (0.2-1.0); Calcium 7.4 mg/dL (8.5-10.1); Carbon Dioxide 20.5 mmol/L (21.0-32.0); Chloride 101 mmol/L (98-107); Estimated GFR (African America 28 (>=60); Estimated GFR (Non-African Ame 23 (>=60); Globulin 4.6 g/dL; Glucose 106 mg/dL (74-106); Potassium 3.5 mmol/L (3.5-5.1); Sodium 136 mmol/L (136-145); Total Protein 6.3 g/dL (6.4-8.2)
[2023-10-05 22:51] LABS: Troponin I High Sensitivity 43.8 pg/mL (4.0-76.1)
[2023-10-05 22:51] LABS: ABG PCO2 34.8 mmHg (35.0-45.0); PO2 ABG 67.6 mmHg (80.0-100.0); pH ABG 7.354 (7.350-7.450)
[2023-10-05 22:52] LABS: Allen Test POSITIVE (POSITIVE); Base Excess ABG -6.1 mmol/L (-2.0-2.0); Fractionated Inspired Oxygen 60 %; HCO3 ABG 19.4 mmol/L (22.0-26.0); O2 Mode BIPAP; Oxygen Saturation ABG 94.3 %; Puncture Site RR
[2023-10-05 22:53] LABS: BIPAP Pressure 14/7; Rate 16
--- NOTE | 2023-10-05 22:54 | ECG_ITS ---
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
[2023-10-05] MEDS: LEVALBUTEROL HCL 0.63 MG/3 ML VIAL.NEB 0.630000000000000004 MG IH (23:00)
[2023-10-05] MEDS: LORAZEPAM 2 MG/ML VIAL 0.5 MG IV (23:11)
[2023-10-05] MEDS: METHYLPREDNISOLONE SOD SUCC PF 125 MG/2 ML VIAL 40 MG IVP (23:12)
[2023-10-05] MEDS: METOPROLOL TARTRATE 5 MG/5 ML VIAL IVP (23:14)
[2023-10-06] VITALS (60 sets, daily range): BP systolic 70–217; BP diastolic 49–142; PULSE 92–155; RESP 16; TEMP 36.8–37.1; O2SAT 90–93
[2023-10-06] MEDS: LEVALBUTEROL HCL 0.63 MG/3 ML VIAL.NEB 0.630000000000000004 MG IH ×3 (03:30→09:35)
--- NOTE | 2023-10-06 03:58 | ECG_ITS ---
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
[2023-10-06] MEDS: PIPERACILLIN SODIUM/TAZOBACTAM 3.375 GM in 0.9 % SODIUM CHLORIDE 50 ML IV ×2 (04:00→14:35)
--- NOTE | 2023-10-06 04:01 | P.EN_ITS ---
Event Note Event Note: Callled by RN for sustained HR 140-150s and Metiprolol IV 5mg given x2 with not much effect, and SBP drop to 88/68. CXR done which showed interstitial edema vs opacity and Lasix given 20mg IV, patient felt better and increase urine output. Labs done and trop 43.8, Cr 3.03(2.37 10/04 0330). Lung sounds coarse per nurse and patient on Bipap per Resp. EKG showed SR W/incomplete RBBB now showing AFib RVR(152) and started Amiodorone drip 150mg for firs 10min followed by continuous drip 360mg over next 6hrs and Levophed drip for SBP 86/50 per RN. HAve contacted [facility] for ICU transfer bed and spoke to Dr Benavides(anatomy teacher) and he accepted patient but waiting list until daytime. [facility] transfer center contacted regarding ICU transfer bed and waiting for return call from Dobby Looms Pegger, ABGs done earilier evening w/pH 7.34, CO2 34, O2 67, HCO3 19, WBC today 16.1(20 10/04). Spoke with Dr. Coles for [facility] Transfer to [facility] and patient accepted to medical ICU and transfer center will contact ELECTROMAGNET CRANE OPERATOR Yany for further information and bed number. Levophed drip initiated and SBP now 110 and patient has received Amiodorone bolus 150mg continuous drip initiated as directed. Patient appears more comfortable per RN w/sats 94% on Bipap 60%, T 98.5F.
[2023-10-06 04:33] LABS: Basophils Percent Auto 0.1 % (0.2-2.0); Hematocrit 42.9 % (42.0-54.0); Hemoglobin 14.1 g/dL (14.0-18.0); Immature Granulocytes Abs Auto 0.07 10^3/uL (0.00-0.03); Immature Granulocytes Pct Auto 0.4 % (0.0-0.5); Lymphocytes Absolute Auto 0.4 10^3/uL (1.2-3.8); Lymphocytes Percent Auto 2.4 % (20.5-60.0); Mean Corpuscular HGB Conc 32.9 g/dL (29.9-35.2); Mean Corpuscular Hemoglobin 29.9 pg (25.9-34.0); Mean Corpuscular Volume 90.9 fL (80.0-94.0); Monocytes Absolute Auto 0.5 10^3/uL (0.3-0.8); Monocytes Percent Auto 2.8 % (1.7-12.0); Neutrophils Absolute Auto 15.2 10^3/uL (1.4-6.5); Neutrophils Percent Auto 94.3 % (43.0-75.0); Platelet Count 180 10^3/uL (150-450); Red Blood Count 4.72 10^6/uL (4.70-6.10); Red Cell Distribution Width 15.9 % (11.0-15.0); White Blood Count 16.1 10^3/uL (4.0-11.0)
[2023-10-06 04:49] LABS: Ammonia <10 umol/L (11-32)
[2023-10-06 04:52] LABS: Alanine Aminotransferase 26 U/L (16-63); Albumin Globulin Ratio 0.4; Albumin Level 2.1 g/dL (3.4-5.0); Alkaline Phosphatase 82 U/L (46-116); Anion Gap 16.6; Aspartate Amino Transferase 37 U/L (15-37); BUN Creatinine Ratio 10.4; Bilirubin Total 1.4 mg/dL (0.2-1.0); Calcium 8.5 mg/dL (8.5-10.1); Carbon Dioxide 21.8 mmol/L (21.0-32.0); Chloride 100 mmol/L (98-107); Estimated GFR (African America 21 (>=60); Estimated GFR (Non-African Ame 17 (>=60); Globulin 5.8 g/dL; Glucose 140 mg/dL (74-106); Potassium 4.4 mmol/L (3.5-5.1); Sodium 134 mmol/L (136-145); Total Protein 7.9 g/dL (6.4-8.2)
[2023-10-06] MEDS: AMIODARONE IN DEXTROSE,ISO-OSM 150 MG/100 ML PIGGYBACK 600 MG IV (05:01)
[2023-10-06] MEDS: AMIODARONE IN DEXTROSE,ISO-OSM 360 MG/200 ML PLAST..BAG 33.3329999999999984 MG IV (05:15)
--- NOTE | 2023-10-06 06:08 | PC.NURSE ---
0500 Patient's emergency contact, Josué Good called and updated on patient condition. Notified of possible transfer of patient and update will be called once more information is received. 0550 Emergency Contact Josué Good called and updated that patient has received a bed at [facility], Room A904. Contact aware transport is planned to arrive tentatively at 0930 to move patient to that facility.
--- NOTE | 2023-10-06 06:19 | ECG_ITS ---
The 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1980 Requested By: 2080 Order Number: [id number] Reading MD: JOSE CARLOS WHALEN Measurements Intervals [place] Rate: 147 P: -[id number] WI: -[id number] QRS: 66 QRSD: 116 T: -36 QT: 374 QTc: 458 Interpretive Statements 1420 Undetermined rhythm (Possible supraventricular tachycardia) 2440 Incomplete right bundle branch block [address] depression 4364 Twave abnormality, possible anterolateral ischemia 4664 Twave abnormality, possible inferior ischemia 9150 abnormal ECG Compared to ECG 10/06/2023 04:00:43 ST (T wave) deviation now present Possible ischemia now present Atrial fibrillation no longer present Electronically Signed On 10-06-2023 7:02:10 EDT by JOSE CARLOS WHALEN
--- NOTE | 2023-10-06 06:26 | PC.NURSE ---
Patient was desatting around shift change while he was on 6l n.c. I notified RT and she said to get an order for Vapotherm. I received order for Vapotherm. Patient was only able to wear for short while before bed bc he was desatting again. I applied Bipap and his sats were 90-91 % Then not long afterwards Patients heart rate started to increase 150-160 bpm. His UOP was only 100 cc before 2200. I received orders from Tirso HICKEY for Lasix,CRX,solumedrol ivp,lopressor 5mg ivp x1,Ativan 0.5 ivp, Xopenex,labs,ABG. Patient's heart rate did respond to Lopressor. However, his resp were still increased even after solumedrol,Xopenex,and Ativan was given while on bipap. Then around 430 his heart rate increased again to 150s and he did not respond to ivp lopressor 5mg.Received orders from Tirso to start Amiodarone bolus then a drip. Shortly, afterwards Patient's bp dropped to 70/55. Notified Tirso and received order for Levo and to transfer Patient to a higher level of care. Patient will be going to [facility] around 930am. Bed A 904. Dr. Coles is the Accepting Physician.Dr. Meza was notified and will be up to see Patient.
[2023-10-06] MEDS: LORAZEPAM 2 MG/ML VIAL 0.5 MG IV (07:00)
[2023-10-06 07:35] LABS: ABG PCO2 40.3 mmHg (35.0-45.0); Allen Test POSITIVE (POSITIVE); Base Excess ABG -8.4 mmol/L (-2.0-2.0); Fractionated Inspired Oxygen 60 %; HCO3 ABG 18.5 mmol/L (22.0-26.0); O2 Mode BIPAP; Oxygen Saturation ABG 92.5 %; PO2 ABG 67.3 mmHg (80.0-100.0)
[2023-10-06 07:36] LABS: BIPAP Pressure 16/8; Puncture Site RT RAD
--- NOTE | 2023-10-06 07:50 | P.DS_ITS ---
DS: Providers Provider Date of admission: 10/04/23 02:30 Primary care physician: Non-Staff Physician, Consults: 10/04/23 09:54 Occupational Therapy Eval and Treat Routine Reason for consultation: weakness Has provider been notified: No Physical Therapy Eval and Treat Routine Reason for consultation: weakness Has provider been notified: No 10/06/23 Consult to Telenephrology Routine Reason for consultation: MOHAN Has provider been notified: No 10/06/23 07:24 Consult to Anesthesiology Routine Consulting Provider: Bandar Alaniz Reason for consultation: semi-elective intubation Has provider been notified: Yes DS: Diagnosis Discharge Diagnosis (1) Pyelonephritis of left kidney: (2) Sepsis: Qualifiers: Acute renal failure type: unspecified Sepsis acute organ dysfunction status: with acute organ dysfunction Sepsis type: sepsis due to unspecified organism Severe sepsis acute organ dysfunction type: acute renal failure Severe sepsis shock status: without septic shock Qualified Code(s): A41.9 - Sepsis, unspecified organism; R65.20 - Severe sepsis without septic shock; N17.9 - Acute kidney failure, unspecified (3) MOHAN (acute kidney injury): (4) Acute respiratory failure with hypoxia: (5) Hypokalemia: (6) Left renal mass: (7) Hepatic steatosis: (8) Hepatic cyst: (9) Gallbladder calculus without cholecystitis: Qualifiers: Biliary obstruction: without biliary obstruction Qualified Code(s): K80.20 - Calculus of gallbladder without cholecystitis without obstruction (10) Elevated d-dimer: Plan Admission findings: Fever, respiratory distress, sinus tachycardia, positive procalcitonin, acute kidney injury, leukocytosis secondary to pyelonephritis of left kidney resulting in severe sepsis. Fever spike again yesterday. Adjusted antibiotics on 622. Condition deteriorated-respiratory failure with acute anion gap respiratory acidosis-transfer to [facility] MOHAN (acute kidney injury): Due to sepsis and complicated by IV contrast. Deteriorated on the day of transfer Acute hypoxic respiratory failure requiring BiPAP. Semielective intubation prio r to transfer Sgrhwywbhoj-[id number]-[id number] Renal mass-repeat testing as an outpatient Fatty liver disease with mild tenderness right upper quadrant, ultrasound not consistent with acute cholecystitis but is currently on antibiotics. Hepatic cyst: Follow-up as an outpatient Gallbladder calculus without cholecystitis: If pain becomes worse, consider repeat testing Hypertension: Hypotensive at the time of transfer requiring Levophed Lumbar spondylosis: Continue with pain medication Obesity: Morbid obesity-diet management Schizophrenia: Appears fairly stable, continue to monitor Amputation of foot, left, traumatic: Continue to monitor Sleep apnea treated with continuous positive airway pressure maintain at sleep,- currently intubated Elevated d-dimer: CTA not definitive, but now with significant hematuria so we will hold off on blood thinners Severe protein calorie malnutrition-diet management Hematuria likely secondary to the infection but mass is a potential etiology as well, we will hold off on blood thinners Plan DS: Summary Hospital Course Hospital Course: Patient admitted with fever, leukocytosis, lactate showing signs of severe sepsis. Placed on antibiotics. Spiked a fever and antibiotics were added levofloxacin. Yesterday still spiked a fever, overall lung exam was worse requiring prolonged BiPAP. In the afternoon he was able to be weaned back down to high flow nasal cannula., Overnight time the condition deteriorated, went into A-fib with RVR, placed on amiodarone blood pressure decreased placed on Levophed. Chest x-ray consistent with flash pulmonary edema, IV diuretics given x 1. Significant tachycardia persisting. When I arrived this morning saline lock patient and gave dose of Lanoxin, after discussion was for stability since he is requiring increased pressures on his BiPAP the patient electively intubated. His ABG was not consistent with CO2 retention appears consistent with respiratory acidosis. Cultures are pending. Patient critical at the time of transfer Status at Discharge Overall status at discharge: patient is not back to baseline Time Spent with Patient Time attestation: Total time spent providing and/or coordinating discharge services: Time spent: greater than 30 minutes Specific discharge activities: 45 minutes of Critical care time coordinating intubation, blood pressure support Exam Constitutional Vital Signs, click to edit/add: Last Vital Signs Temp 98.3 F 10/06/23 05:00 Pulse 147 H 10/06/23 06:00 Resp 44 H 10/06/23 05:22 BP 141/86 10/06/23 05:20 Pulse Ox 93 L 10/06/23 06:00 O2 Del Method BIPAP 10/06/23 05:00 O2 Flow Rate 40 10/05/23 20:45 FiO2 60 10/06/23 03:32 Documenting provider has reviewed patient's vital signs: yes Common normals: apparent distress (Moderate respiratory distress) Chest Common normals: inspection of chest normal, palpation of chest normal and inspection of breasts normal Respiratory Common normals: no use of accessory muscles and clear to auscultation bilaterally; abnormal respiratory effort (Moderate respiratory distress) Cardio Common normals: regular rhythm; irregular rate Rate: tachycardic GI Common normals: Normal to inspection, nondistended, normoactive bowel sounds present and soft to palpation; tender Palpation: tender Details: RUQ DS: Data Data Completed and Pending Labs on day of discharge: Labs from last 24 hours 10/06/23 10/06/23 10/05/23 07:04 04:18 22:40 WBC 16.1 H RBC 4.72 Hgb 14.1 Hct 42.9 MCV 90.9 MCH 29.9 MCHC 32.9 RDW 15.9 H Plt Count 180 MPV 11.0 Neut % (Auto) 94.3 H Lymph % (Auto) 2.4 L [place] % (Auto) 2.8 Eos % (Auto) 0.0 L Baso % (Auto) 0.1 L Neut # (Auto) 15.2 H Lymph # (Auto) 0.4 L [place] # (Auto) 0.5 Eos # (Auto) 0.0 Baso # (Auto) 0.0 Abs Immat Gran (auto) 0.07 H Imm/Tot Granulo (auto) 0.4 Puncture Site Rt rad Rr ABG pH 7.270 L* 7.354 ABG pCO2 40.3 34.8 L ABG pO2 67.3 L 67.6 L ABG HCO3 18.5 L 19.4 L ABG O2 Saturation 92.5 94.3 ABG Base Excess -8.4 L -6.1 L Bridger Test Positive Positive FiO2 60 60 BiPAP 16/8 14/7 Sodium 134 L Potassium 4.4 Chloride 100 Carbon Dioxide 21.8 Anion Gap 16.6 BUN 40.0 H Creatinine 3.85 H Est GFR ( Amer) 21 L Est GFR (Non-Af Amer) 17 L BUN/Creatinine Ratio 10.4 Glucose 140 H Calcium 8.5 Total Bilirubin 1.4 H AST 37 ALT 26 Alkaline Phosphatase 82 Ammonia <10 L Troponin I High Sens NT-Pro-B Natriuret Pep 4506.0 H* Total Protein 7.9 Albumin 2.1 L Globulin 5.8 Albumin/Globulin Ratio 0.4 mecA/C-Methicil Resis Gene 10/05/23 10/03/23 22:28 22:20 WBC RBC Hgb Hct MCV MCH MCHC RDW Plt Count MPV Neut % (Auto) Lymph % (Auto) [place] % (Auto) Eos % (Auto) Baso % (Auto) Neut # (Auto) Lymph # (Auto) [place] # (Auto) Eos # (Auto) Baso # (Auto) Abs Immat Gran (auto) Imm/Tot Granulo (auto) Puncture Site ABG pH ABG pCO2 ABG pO2 ABG HCO3 ABG O2 Saturation ABG Base Excess Bridger Test FiO2 BiPAP Sodium 136 Potassium 3.5 Chloride 101 Carbon Dioxide 20.5 L Anion Gap 18.0 BUN 31.0 H Creatinine 3.03 H Est GFR ( Amer) 28 L Est GFR (Non-Af Amer) 23 L BUN/Creatinine Ratio 10.2 Glucose 106 Calcium 7.4 L Total Bilirubin 1.2 H AST 32 ALT 18 Alkaline Phosphatase 65 Ammonia Troponin I High Sens 43.8 NT-Pro-B Natriuret Pep Total Protein 6.3 L Albumin 1.7 L Globulin 4.6 Albumin/Globulin Ratio 0.4 mecA/C-Methicil Resis Gene Not detected Preliminary micro results at discharge 10/03/23 22:28 - Preliminary Blood NO GROWTH AT 36-48 HOURS. FINAL TO FOLLOW. 10/03/23 22:20 Blood Culture Result 1 - Preliminary Blood 10/04/23 00:56 Urine Culture - Preliminary Urine,Clean Catch Escherichia coli 10/03/23 22:22 Group A Streptococcus Screen (NELLIE) - Preliminary Throat Discharge [facility]
[2023-10-06 08:39] LABS: Troponin I High Sensitivity 17.2 pg/mL (4.0-76.1)
--- NOTE | 2023-10-06 08:43 | XR_ITS ---
The [address] [address] Patient Name: SALVADOR ANTOINE MRN: [id number] date: 1980 Sex: M Assigned Patient Location: ICU Current Patient Location: ICU Accession/Order Number: [id number] Exam Date: 10/06/2023 08:50 Report Date: 10/06/2023 09:39 At the request of: JOSE CARLOS WHALEN Procedure: XR chest 1V EXAM: XR chest 1V HISTORY: Tube placement. COMPARISON: Portable chest radiograph dated 10/05/2023. TECHNIQUE: AP semierect portable chest radiograph performed. FINDINGS: New endotracheal tube with the distal tip 3.3 cm above the level of the navneet. There is a right PICC extending into the superior vena cava. Stable mild to moderate enlargement of the cardiomediastinal silhouette. Low lung volumes with worsened extensive airspace disease throughout both lung oakes. There is no pleural effusion. There is no pneumothorax or osseous abnormality. XR/XR chest 1V IMPRESSION: New endotracheal tube with the distal tip 3.3 cm above the level of the navneet. Right PICC extending into the superior vena cava. Low lung volumes with worsened extensive airspace disease throughout both lung oakes Electronically authenticated by: JEFF MCGUIRE Date: 10/06/2023 09:39
--- NOTE | 2023-10-06 11:21 | PC.NURSE ---
Patient on the bipap settings 16/8 via 100%. BP 119/63, RR 47, O2 SAT 92%, Temp 97.9. Patient being prepared for intubation before [facility] ground transport arrives. ETA 0930. Dr. Alaniz to do the intubation. 0832 Time out performed. all present are, Non Morse Intercept Technician Emelia RN, Avril MALCOLM RN, Opal RT, Dr. Alaniz, and this administrative underwriter. 0835 Etomidate 40mg order and given with flush and Rocuronium 50 mg given with flush. 0836 Patient intubated with ET tube of size 8, 22 at the lip. VS BP 173/142, HR 156, RR 30, O2 86%. Recreational Leader verified lung sounds and bi-lateral expansion. 0838 Patient was bagged. HR 150, O2% 91. Dr. Aalniz did not want the OG tube placed at this time. [address] on vent. Vent settings 24R, 800 TV, 10 Peep , 100%. 0842 Soft restraints applied. Rocuronium ordered at 50mg. 0844 Rocuronium given with flush, Patient O2 at 78%. 10mg of Etomidate ordered BP 217/125, O2 75%, Norepinephrine drip stopped. Radiology in the room. 0845 Etomidate 10mg given with flush. 0847 X-ray confirms placement of ET tube. 0849 BP 192/118, O2 79%, HR 152, RR 24 0852 Finger probe reading O2 71% 0854 In line suction, no secretions 0855 Towel placed behind the neck, Patient repositioned, head of the bed elevated. Vent settings changed to 24R, 800 TV, 10 Peep, 100% 0856 BP 175/121, RR 18, HR 152, O2 78% 0857 Inline suction performed , Scant amount of pink tinged, frothy sputum. BP 204/18, HR 153, O2 80% 0859 Peep increased to 15, O2 82%, Peep increased to 20, O2 83% 0901 BP 149/103, HR 138, RR 27, O2 84% 0905 BP 125/96, HR 144, O2 85% 0908 Report given to Elmo ARMENTA EMT-B of the transport crew. 0911 HR 144, O2 86% 0920 HR 137, O2 87% 0928 Patient transferred to [facility] cot. Placed on EMT's Vent. 0930 Patient not tolerating the EMT's vent. O2 drops to 60% 0931 Patient placed back on the Hospital ventilator per Hospital Non Morse Intercept Technician's request to assist patient with recovering, settings 24RR, 800 TV, Peep 20, 100% 0934 HR 134, O2 68% 0935 RN EMT-B Elmo from [facility] requested Xopenex breathing treatment. BP 216/130, HR 135, RR 24, O2 70% 0937 BP 209/125, HR 135, O2 74% 0938 Xopenex breathing treatment started 0940 BP 197/116, HR 167, O2 75% 0942 Inline suction, scant amount of pink frothy sputum 0943 Xopenex treatment completed, HR 137, O2 76% 0946 Patient repositioned on the cot. HR 136, O2 77% 0948 Inline suction completed. No contents suctioned. 0952 In line suction, scant amount of pink frothy sputum 0954 BP 171/101, HR 137, RR 20, O2 77% 1000 EMT asked for 40mg Furosemide IVP, Dr Meza notified and approved order. 1002 40mg Furosemide IVP administered with flush 1004 Oral suction completed. Sputum clear BP 169/110 HR 138 O2 75% 1006 Switching back to the [facility] vent. 1008 HR 137, O2 68%, EMT's discussing patients needs and if they can be met by them 1009 [facility] to [place], HR 137, O2 68% 1021 [facility] ground crew left the ER bay with patient. 1050 Report called to Elmo ARMENTA at [facility] 1057 Spoke with VERN Moses and updated him on patients condition.
[2023-10-06] MEDS: FUROSEMIDE 40 MG/4 ML VIAL IVP (14:01)
[2023-10-06] MEDS: ETOMIDATE 20 MG/10 ML VIAL 40 MG IVP (15:01)
[2023-10-06] MEDS: ETOMIDATE 20 MG/10 ML VIAL 10 MG IVP (15:03)
[2023-10-06] MEDS: ROCURONIUM BROMIDE 50 MG/5 ML VIAL IV ×2 (15:04→15:05)
== END 2023-10-06 10:11 | disposition short-term general hospital (02) | DRG 720 ==
LOC: ER 22:57 → MS 10-04 02:32 → ICU 10-04 09:27
PROVIDERS: Family Medicine; Nurse Practitioner; Nurse Practitioner Acute Care; Admitting Provider Family Medicine; Emergency Provider Emergency Medicine; Visit Provider Family Medicine
DX: A41.9 Sepsis, unspecified organism (principal); N10 Acute pyelonephritis; J81.0 Acute pulmonary edema; R65.20 Severe sepsis without septic shock; J96.01 Acute respiratory failure with hypoxia; E87.6 Hypokalemia; N17.9 Acute kidney failure, unspecified; I48.91 Unspecified atrial fibrillation; E43 Unspecified severe protein-calorie malnutrition; E66.01 Morbid (severe) obesity due to excess calories; I10 Essential (primary) hypertension; R33.9 Retention of urine, unspecified; J45.909 Unspecified asthma, uncomplicated; F32.A Depression, unspecified; F41.9 Anxiety disorder, unspecified; F20.9 Schizophrenia, unspecified; G47.30 Sleep apnea, unspecified; M47.816 Spondylosis without myelopathy or radiculopathy, lumbar region; N28.89 Other specified disorders of kidney and ureter; K76.0 Fatty (change of) liver, not elsewhere classified; K76.89 Other specified diseases of liver; K80.20 Calculus of gallbladder without cholecystitis without obstruction; R79.89 Other specified abnormal findings of blood chemistry; Z87.440 Personal history of urinary (tract) infections; Z68.44 Body mass index [BMI] 60.0-69.9, adult; Z79.899 Other long term (current) drug therapy; Z79.51 Long term (current) use of inhaled steroids; Z86.711 Personal history of pulmonary embolism; Z89.432 Acquired absence of left foot; Z72.0 Tobacco use
CPT/HCPCS: 0202U; 36415; 36569; 36592; 36600; 51702; 51798; 70450; 71045; 71275; 74177; 76705; 76770; 80053; 80061; 81001; 82140; 82805; 83036; 83605; 83880; 84145; 84484; 85007; 85025; 85027; 85378; 86308; 87040; 87070; 87086; 87150; 87186; 87880; 93005; 93306; 94002; 94640; 94660; 94761; 94799; 96365; 96366; 96367; 96368; 96372; 96375; 96376; 97161; 97165; 97530; 99285; C1887; J0283; J0360; J0696; J1650; J1885; J1940; J2060; J2270; J2405; J2543; J2919; Q9966